=== PATIENT | male | born 1960 | race Caucasian/White ===

== ENCOUNTER 2020-09-03 12:07 | Outpatient (REF) | payer OTHER, SELFPAY | END 2020-09-03 12:08 | disposition home or self-care (01) | LOC: HO.LAB 12:07 | PROVIDERS: PCP Internal Medicine; Visit Provider Internal Medicine | DX: Z20.828 Contact with and (suspected) exposure to other viral communicable diseases (principal) | CPT/HCPCS: U0003 ==

== ENCOUNTER → 2020-09-29 08:25 | Outpatient (BNVA) | payer OTHER, SELFPAY | PROVIDERS: PCP Internal Medicine; Referring Provider Internal Medicine; Visit Provider Internal Medicine | DX: I10 Essential (primary) hypertension (principal); Q21.0 Ventricular septal defect | CPT/HCPCS: 93005 ==

== ENCOUNTER 2020-10-05 07:21 | Outpatient (REF) | payer OTHER, SELFPAY ==
[2020-10-05 07:57] LABS: MANUAL DIFF FLAG NO
[2020-10-05 08:06] LABS: Basophils Absolute Auto 0.1 X10*3/uL (0.0-0.2); Basophils Percent Auto 0.9 % (0-2); Eosinophils Absolute Auto 0.2 X10*3/uL (0.0-0.4); Hematocrit 43.7 % (42-52); Hemoglobin 15.2 g/dl (14.0-18.0); Imm Gran Abs Auto 0.05 X10*3/uL (0.00-0.03); Imm Gran Pct Auto 0.5 % (0.0-0.4); Lymphocytes Absolute Auto 2.1 X10*3/uL (1.2-4.9); Lymphocytes Percent Auto 20.7 % (20-40); Mean Corpuscular HGB Conc 34.8 g/dl (31.0-36.0); Mean Corpuscular Hemoglobin 34.7 pg (27.0-33.0); Mean Corpuscular Volume 99.8 fL (80-98); Monocytes Absolute Auto 0.9 X10*3/uL (0.1-1.2); Monocytes Percent Auto 8.9 % (2-11); Neutrophils Absolute Auto 6.8 X10*3/uL (2.0-8.3); Platelet Count 228 X10*3/uL (160-400); Red Blood Count 4.38 X10*6/uL (4.60-5.80); Red Cell Distribution Width 11.9 % (11.0-16.0); White Blood Count 10.2 X10*3/uL (4.8-10.8)
[2020-10-05 08:19] LABS: Alanine Aminotransferase 62 U/L (0-40); Albumin Level 4.2 g/dL (3.5-5.0); Alkaline Phosphatase 50 U/L (39-117); Anion Gap 13 (12-20); Aspartate Amino Transferase 51 U/L (5-37); Bilirubin Total 1.1 mg/dL (0.0-1.0); Blood Urea Nitrogen 12 mg/dL (9-16); Calcium 8.7 mg/dL (8.4-10.2); Carbon Dioxide 25 mmol/L (22-29); Chloride 102 mmol/L (96-108); Cholesterol 160 mg/dL; Estimated Glomerular Filt Rate > 60; Glucose Fasting 112 mg/dL (60-99); HDL Cholesterol 62 mg/dL; LDL Cholesterol Calculated 57 mg/dl; Potassium 3.9 mmol/l (3.3-5.1); Sodium 136 mmol/L (135-145); Total Protein 6.6 g/dL (6.5-8.0); Triglycerides 208 mg/dL
[2020-10-05 08:42] LABS: Prostate Specific Antigen Scr 0.14 ng/mL (<0.05-4.0)
== END 2020-10-05 07:22 | disposition home or self-care (01) ==
LOC: HO.LAB 07:21
PROVIDERS: Visit Provider Internal Medicine
DX: E11.9 Type 2 diabetes mellitus without complications (principal); I10 Essential (primary) hypertension
CPT/HCPCS: 36415; 80053; 80061; 84153; 85025

== ENCOUNTER 2021-10-07 09:02 | Outpatient (REF) | payer OTHER, SELFPAY ==
[2021-10-07 10:01] LABS: Basophils Absolute Auto 0.1 X10*3/uL (0.0-0.2); Basophils Percent Auto 0.6 % (0-2); Eosinophils Absolute Auto 0.1 X10*3/uL (0.0-0.4); Eosinophils Percent Auto 0.8 % (0-4); Hematocrit 43.6 % (42.0-52.0); Hemoglobin 14.8 g/dl (14.0-18.0); Imm Gran Abs Auto 0.07 X10*3/uL (0.00-0.03); Imm Gran Pct Auto 0.6 % (0.0-0.4); Lymphocytes Absolute Auto 1.9 X10*3/uL (1.2-4.9); Lymphocytes Percent Auto 15.4 % (20-40); MANUAL DIFF FLAG NO; Mean Corpuscular HGB Conc 33.9 g/dl (31.0-36.0); Mean Corpuscular Hemoglobin 34.6 pg (27.0-33.0); Mean Corpuscular Volume 101.9 fL (80.0-98.0); Mean Platelet Volume 11.8 fL (9.4-12.4); Monocytes Absolute Auto 1.2 X10*3/uL (0.1-1.2); Monocytes Percent Auto 9.7 % (2-11); Neutrophils Percent Auto 72.9 % (45-73); Platelet Count 199 X10*3/uL (160-400); Red Blood Count 4.28 X10*6/uL (4.60-5.80); Red Cell Distribution Width 12.6 % (11.0-16.0); White Blood Count 12.3 X10*3/uL (4.8-10.8)
[2021-10-07 11:14] LABS: Alanine Aminotransferase 48 U/L (0-40); Albumin Level 4.3 g/dL (3.5-5.0); Alkaline Phosphatase 69 U/L (39-117); Anion Gap 16 (12-20); Aspartate Amino Transferase 40 U/L (5-37); Bilirubin Total 1.3 mg/dL (0.0-1.0); Blood Urea Nitrogen 9 mg/dL (9-16); Calcium 9.3 mg/dL (8.4-10.2); Carbon Dioxide 23 mmol/L (22-29); Chloride 102 mmol/L (96-108); Cholesterol 128 mg/dL; Estimated Glomerular Filt Rate > 60; Glucose Fasting 119 mg/dL (60-99); HDL Cholesterol 38 mg/dL; LDL Cholesterol Calculated 67 mg/dl; Potassium 4.4 mmol/L (3.3-5.1); Sodium 137 mmol/L (135-145); Total Protein 6.9 g/dL (6.5-8.0); Triglycerides 115 mg/dL
[2021-10-07 11:35] LABS: Prostate Specific Antigen Scr 0.19 ng/mL (<0.05-4.0); Thyroid Stimulating Hormone 1.68 uIU/mL (0.32-4.0)
== END 2021-10-07 09:03 | disposition home or self-care (01) ==
LOC: HO.LAB 09:02
PROVIDERS: PCP Internal Medicine; Visit Provider Internal Medicine
DX: Z00.00 Encounter for general adult medical examination without abnormal findings (principal); Z12.5 Encounter for screening for malignant neoplasm of prostate
CPT/HCPCS: 36415; 80053; 80061; 84153; 84443; 85025

== ENCOUNTER 2021-10-11 10:54 | Inpatient (IN) | payer OTHER, SELFPAY ==
[2021-10-11] VITALS (15 sets, daily range): BP systolic 124–188; BP diastolic 79–131; PULSE 58–170; RESP 18–22; TEMP 36.4; O2SAT 95–98; BMI 35.6
--- NOTE | 2021-10-11 | ECG_ITS ---
Test Reason : CP Blood Pressure : / mmHG Vent. Rate : 166 BPM Atrial Rate : 000 BPM P-R Int : 000 ms QRS Dur : 076 ms QT Int : 304 ms P-R-T Axes : 000 104 066 degrees QTc Int : 505 ms Supraventricular tachycardia vs atrial flutter Rightward axis Anteroseptal infarct (cited on or before 22-NOV-2017) Abnormal ECG When compared with ECG of 22-NOV-2017 13:41, Significant changes have occurred Referred By: Generic ED Physician Electronically Signed By:Jose R Kelley
--- NOTE | ~2021-10-11 | CT_ITS ---
EXAMINATION: CT ABDOMEN AND PELVIS WITH CONTRAST CLINICAL INFORMATION: Abdominal pain. Distention. New onset atrial fibrillation. Rule out bowel ischemia. COMPARISON: None TECHNIQUE: Multidetector volumetric images were obtained from the superior aspect of the liver through the pubic symphysis following administration 85 mL of Omnipaque 350 intravenous contrast. Sagittal reformatted images were obtained on the technologist's workstation. Oral contrast: Yes This CT examination was performed using dose optimization techniques as appropriate, variously including the following: *Automated exposure control *Adjustment of mA and/or kV according to patient size (this includes techniques or standardized protocols for targeted exams where dose is matched to indication/reason for exam; i.e. extremities or head) *Use of iterative reconstruction technique DLP: 779 mGy-cm FINDINGS: LIVER, GALLBLADDER, AND BILIARY TREE: The liver is normal in size, shape, and attenuation. No focal hepatic lesion or biliary ductal dilatation is present. The gallbladder is normal in size. There is question of mild gallbladder wall thickening or pericholecystic fluid. No gallstones are seen. There is a small amount of fluid seen surrounding the liver and in the periportal region. PANCREAS: There may be be pancreas divisum. The pancreas is normal in size. The pancreas enhances normally. There is mild stranding of the fat surrounding the pancreas. SPLEEN: Unremarkable. ADRENAL GLANDS: Unremarkable. KIDNEYS AND URETERS: The kidneys are normal in size, shape, and attenuation. No hydronephrosis, hydroureter, or calculi seen. No perinephric stranding. BLADDER: Unremarkable. GASTROINTESTINAL TRACT: There is mild diverticulosis of the colon. No evidence of diverticulitis is seen. The small and large bowel are unremarkable. The appendix is not seen. No bowel wall thickening, thickening, pneumatosis or mesenteric or portal vein air is seen to suggest ischemia. There is trace fluid seen in both lower quadrants. ABDOMINAL WALL: No significant hernia is appreciated. LYMPH NODES: There are periportal, peripancreatic and retroperitoneal small lymph nodes. Largest periportal and pancreatic head region measuring 1.2 cm. VASCULAR: Unremarkable. No aneurysm or thrombus is seen. PELVIC VISCERA: Unremarkable OSSEOUS STRUCTURES: There are degenerative changes of the spine. CT/CT abdomen pelvis w con IMPRESSION: Mild diverticulosis of the colon. No evidence of diverticulitis or bowel ischemia seen. Normal-appearing mesenteric vasculature. Small amount of ascites around the liver, periportal region, pancreas and in the bilateral lower quadrants. Normal-size gallbladder. Question mild gallbladder wall thickening versus of pericholecystic fluid. Small periportal and peripancreatic lymph nodes. Fleischner guidelines were followed.
--- NOTE | ~2021-10-11 | XR_ITS ---
EXAMINATION: XR CHEST CLINICAL INFORMATION: Shortness of breath, tachycardia, rule out pulmonary edema COMPARISON: None TECHNIQUE: Portable upright AP view of the chest was obtained. FINDINGS: The cardiopericardial silhouette is within limits of normal size. The vascularity is normal. There is no vascular congestion or airspace consolidation or groundglass opacity. No effusion. No pneumothorax or pleural reaction. The visualized hilar and mediastinal contours are unremarkable. No visible acute bony abnormality. XR/XR chest 1V IMPRESSION: Unremarkable examination.
--- NOTE | ~2021-10-11 | CT_ITS ---
EXAMINATION: CT ANGIOGRAM OF THE CHEST WITH AND WITHOUT CONTRAST (CT PULMONARY ANGIOGRAM FOR PE) CLINICAL INFORMATION: Reason for Exam Chest pain, shortness of breath, new onset AFib, high D-dime COMPARISON: Previous chest x-ray from earlier the same day TECHNIQUE: Prior to contrast administration, noncontrast localization images were obtained. Subsequently, multidetector volumetric imaging was performed from the thoracic inlet to below the diaphragms following the administration of 85 mL Omnipaque 350 intravenous contrast. No contrast reaction reported Sagittal, coronal, and MIP oblique sagittal reformatted images were obtained on the CT workstation, uploaded to PACS, and reviewed. This CT examination was performed using dose optimization techniques as appropriate, variously including the following: *Automated exposure control *Adjustment of mA and/or kV according to patient size (this includes techniques or standardized protocols for targeted exams where dose is matched to indication/reason for exam; i.e. extremities or head) *Use of iterative reconstruction technique Total exam dose-length product 544 mGy-cm FINDINGS: QUALITY OF STUDY/CONTRAST BOLUS: Satisfactory. PULMONARY ARTERIES: No central or segmental pulmonary emboli. THORACIC AORTA: No aneurysm or dissection. There is mild narrowing of the proximal descending thoracic aorta just beyond the origin of the left subclavian artery questionable for mild coarct. LUNG: There are increased interstitial markings with interlobular septal thickening. There are scattered areas of increased groundglass attenuation in the upper lobes. PLEURA: There are small bilateral pleural effusions, right greater than left. MEDIASTINUM: The heart is enlarged. There is a small pericardial effusion. There is no evidence of right heart strain. There are small mediastinal and bilateral hilar lymph nodes. There is aberrant course of the left innominate vein posterior or deep to the aortic arch. CHEST WALL/AXILLA: There are bilateral axillary lymph nodes, left greater than right. Largest left axillary lymph node measures 1.2 cm. OSSEOUS STRUCTURES: No acute or suspicious osseous abnormality. There are degenerative changes of the spine. UPPER ABDOMEN: Unremarkable. No reflux of contrast into the hepatic veins to suggest elevated right heart pressures. CT/CT angio chest PE protocol IMPRESSION: No evidence of pulmonary embolism. Enlarged heart, mixed interstitial and groundglass attenuation lung disease and small bilateral pleural effusions. Findings are suggestive of mild CHF. Mild narrowing of the proximal descending thoracic aorta just distal to the origin of the left subclavian artery questionable for mild coarctation. Very small pericardial effusion. Left axillary lymphadenopathy. VTE: negative
[2021-10-11 11:29] LABS: MANUAL DIFF FLAG NO
[2021-10-11 11:33] LABS: Basophils Absolute Auto 0.1 X10*3/uL (0.0-0.2); Basophils Percent Auto 0.9 % (0-2); Eosinophils Absolute Auto 0.1 X10*3/uL (0.0-0.4); Eosinophils Percent Auto 1.2 % (0-4); Hematocrit 44.7 % (42.0-52.0); Hemoglobin 15.3 g/dl (14.0-18.0); Imm Gran Abs Auto 0.03 X10*3/uL (0.00-0.03); Imm Gran Pct Auto 0.2 % (0.0-0.4); Lymphocytes Absolute Auto 2.3 X10*3/uL (1.2-4.9); Lymphocytes Percent Auto 18.7 % (20-40); Mean Corpuscular HGB Conc 34.2 g/dl (31.0-36.0); Mean Corpuscular Hemoglobin 34.9 pg (27.0-33.0); Mean Corpuscular Volume 102.1 fL (80.0-98.0); Mean Platelet Volume 11.6 fL (9.4-12.4); Monocytes Absolute Auto 1.2 X10*3/uL (0.1-1.2); Monocytes Percent Auto 10.2 % (2-11); Neutrophils Absolute Auto 8.3 x10*3/uL (2.0-8.3); Neutrophils Percent Auto 68.8 % (45-73); Platelet Count 225 X10*3/uL (160-400); Red Blood Count 4.38 X10*6/uL (4.60-5.80); Red Cell Distribution Width 12.5 % (11.0-16.0); White Blood Count 12.1 X10*3/uL (4.8-10.8)
[2021-10-11] MEDS: 0.9 % Sodium Chloride 1,000 ML 999 ML IV (11:33)
--- NOTE | 2021-10-11 11:37 | ED.SOB ---
HPI - SOB/Dyspnea General Chief Complaint: Dyspnea Stated Complaint: Chest pain/sob Time Seen by Provider: 10/11/21 11:06 Source: patient Mode of arrival: ambulatory Limitations: no limitations History of Present Illness HPI Narrative: 60-year-old male who presents emergency department for evaluation of shortness of breath x1 week. Patient states that he has had shortness of breath at rest and dyspnea on exertion x1 week. States that is gotten worse over the past 4 days. He states that can walk about 20 ft in in the gets winded. He states that over the past 2 days he has had intermittent chest tightness. He points to his left breast when asked to localize the pain. The pain lasts seconds to minutes the has approximately 2 episodes per day. The episodes come on with exertion. The pain does not radiate to his neck, jaw, back, extremities patient also states that his abdomen feels bloated and he has a decreased appetite and he states that he was not able to eat today secondary to his abdominal distension. He has not noticed any pain or swelling in his extremities. He denied fever, chills, cough . He states he did have a bloody nose 1 week prior but has not had any other bleeding from his gums or other unusual bleeding. The patient received the [employer] COVID 19 vaccination x2 and received a booster shot of the Pfizer COVID 19 vaccination approximately 6 days prior. Related Data Home Medications Medication Instructions Recorded Confirmed loperamide 2 mg tablet 2 mg PO Q4H PRN 10/11/21 10/11/21 Previous Rx's Medication Instructions Recorded lansoprazole 15 mg capsule,delayed 15 mg PO DAILY #90 cap 09/10/20 release carvedilol 3.125 mg tablet 3.125 mg PO BID #180 tab 05/24/21 irbesartan 300 1 tab PO DAILY #30 tab 08/19/21 mg-hydrochlorothiazide 12.5 mg tablet zolpidem 10 mg tablet 10 mg PO BEDTIME PRN #90 tab 10/10/21 Allergies Allergy/AdvReac Type Severity Reaction Status Date / Time amlodipine AdvReac Unknown Leg Verified 10/11/21 10:33 swelling Review of Systems Review of Systems: Yes all other systems are reviewed and are negative PMFSH Past Medical History PMFSH Narrative: Social history: The patient smokes 1 cigar per day. He drinks 4 alcoholic beverages per day. He denies drug use. Medical History Chronic GERD Essential hypertension Obesity VSD (ventricular septal defect) Surgical History History of appendectomy History of rectal polypectomy History of surgery on extremity Family History Family History Father No problems noted. Mother No problems noted. Brother Heart attack Family/Other Vascular disease Social History Social History Housing: House Alcohol intake: current Alcohol intake frequency: 3 or more drinks per day Alcohol type: beer and wine Patient Tobacco Use Status: Current someday Tobacco user Tobacco use type: Cigar e-Cigarette/Vaping Use: Never Used Second Hand Smoke Exposure: No Use of substances other than those prescribed or required for medical reasons: No Advance Directives: No Advance Directives Information Provided: No Current occupational status: employed Cognitive needs: No Hearing needs: No Vision needs: No Physical Exam Vital Signs: Vital Signs: Last Vital Signs Temp 97.5 F 10/11/21 11:04 Pulse 60 10/11/21 16:14 Resp 22 H 10/11/21 16:14 BP 138/79 10/11/21 16:14 Pulse Ox 97 10/11/21 16:14 BMI result Body Mass Index 35.6 Const: General: cooperative and no acute distress Orientation/consciousness: oriented to person and oriented to place Limitations: no limitations HENMT: Head: Yes normal to inspection, Yes normocephalic and Yes atraumatic Ears: external ears normal General nose exam: Normal external nose present Face and sinus: Yes normal facial exam Mouth: Normal oral and palatal mucosa present Throat: Yes posterior oropharynx normal Eyes: General: appearance normal, both eyes and all related structures Pupils: Equal, round and reactive pupils present Neck: Neck: Yes normal visual inspection, Yes no lymphadenopathy, Yes trachea midline and Yes supple Chest: Chest palpation & inspection: normal inspection of the chest and normal palpation of entire chest wall Resp: Effort & Inspection: normal respiratory effort and able to speak in complete sentences Auscultation: clear to auscultation bilaterally Cardio: Rate: tachycardic Rhythm: regular rhythm Heart sounds: S1 normal heart sound present, S2 normal heart sound present and no murmurs GI: Inspection: Yes normal to inspection Palpation (GI): Soft to palpation, nontender and no guarding Auscultation: normal bowel sounds : General: Yes no CVA tenderness Back/Spine/Pelvis: Back: no CVA tenderness Skin: General skin exam: no rashes or lesions noted Neuro: General: oriented to person and oriented to place Cranial nerves: Yes CN's II-XII intact bilaterally and Yes Equal, round and reactive pupils present Cognition (Neuro): normal cognition Motor exam (neuro): 5/5 motor strength present throughout Extrem: General: Yes normal to inspection Psych: Appearance: grossly normal Speech and movement: Normal speech and movement present Affect: normal affect Attitude: cooperative Thought process: Normal thought process present Thought content: Normal thought content present Course Course Course Narrative: 60-year-old male who presents emergency department for evaluation of shortness of breath x1 week, worse x4 days, intermittent chest tightness x2 days, 1-2 episodes per day lasting seconds to minutes, and a bloated sensation in his abdomen. On presentation to triage, the patient was found to have a tachycardia with a pulse of 165, 12 EKG revealed SVT at 165 which appear to be regular. Patient was brought back to the emergency department and placed on a sanitary landfill operator, defibrillation pads were also placed on the patient's chest and he was hooked up to the defibrillator. Patient was initially given adenosine 6 mg IV with no effect. He was then given adenosine 12 mg IV in the patient then developed flutter waves but continued with an SVT of 165 beats per minute patient's presentation is consistent with atrial flutter/atrial fibrillation. He was ordered to get diltiazem 20 mg IV and Lovenox 100 mg (1 milligram/kilogram) subcutaneously. I did order laboratory evaluation includes CBC, CMP, high sensitivity troponin I, D-dimer, PT/INR, PTT, COVID-19 test. Chest x-ray will be obtained as well. Patient was given normal saline IV x1 L. 1310: Laboratory evaluation: WBC was elevated 12,100, INR was elevated 1.2. BNP is elevated 353. D-dimer was elevated 254. AST and ALT are elevated 4860. Bilirubin is elevated 1.2. High sensitivity troponin I was below detectable limits. Chest x-ray one view was unremarkable. The patient initially had good response with the IV diltiazem but his rate is now at 165 again. Patient was ordered to get diltiazem 25 mg IV and will be started on diltiazem drip. Given his elevated D-dimer I will get a CT pulmonary angiogram with pulmonary embolism protocol to rule out PE. I will also scan the patient's abdomen pelvis evaluate his abdominal pain distension to rule out possible ischemia from atrial flutter. At will discuss the patient's presentation with the covering porcelain enamel sprayer and hospitalist. 1437: Patient was seen by our porcelain enamel sprayer, Dr. Kelley who will consider loading the patient with digoxin if his rate does not improve on diltiazem. I did discuss the patient's presentation with the covering hospitalist, Dr. Hopkins. 1658: CT pulmonary angiogram PE protocol revealed no PE. Radiologist findings are consistent with mild CHF with small bilateral pleural effusions and very small pericardial effusion. Radiologist was questioning mild narrowing of the proximal descending thoracic aorta just distal to the origin of the left subclavian question for mild coarctation of the aorta. CT scan of the abdomen pelvis did not reveal a clear etiology for the patient's abdominal distension. There is a small amount of ascites around the patient's liver, periportal region pancreas and bilateral lower quadrants. There is some mild gallbladder thickening versus pericholecystic fluid and some small rbian portal peripancreatic lymph nodes. I will discuss these findings with the covering hospitalist. MDM - SOB/Dyspnea Lab Data Result diagrams: 10/11/21 11:23 10/11/21 11:23 Labs: Lab Results 10/11/21 10/11/21 10/11/21 Range/Units 11:22 11:22 11:22 WBC (4.8-10.8) X10*3/uL RBC (4.60-5.80) X10*6/uL Hgb (14.0-18.0) g/dl Hct (42.0-52.0) % MCV (80.0-98.0) fL MCH (27.0-33.0) pg MCHC (31.0-36.0) g/dl RDW (11.0-16.0) % Plt Count (160-400) X10*3/uL MPV (9.4-12.4) fL Immature Gran % (Auto) (0.0-0.4) % Neut % (Auto) (45-73) % Lymph % (Auto) (20-40) % [place] % (Auto) (2-11) % Eos % (Auto) (0-4) % Baso % (Auto) (0-2) % Lymph # (Auto) (1.2-4.9) X10*3/uL [place] # (Auto) (0.1-1.2) X10*3/uL Eos # (Auto) (0.0-0.4) X10*3/uL Baso # (Auto) (0.0-0.2) X10*3/uL Abs Immat Gran (auto) (0.00-0.03) X10*3/uL Absolute Neuts (auto) (2.0-8.3) x10*3/uL Absolute Nucleated RBC (0.0-0.012) X10*3/uL Nucleated RBC % (auto) (0.0-0.2) /100WBC PT Cancelled INR Cancelled APTT Cancelled D-Dimer High Sensitivty NG/ML Sodium (135-145) mmol/L Potassium (3.3-5.1) mmol/L Chloride (96-108) mmol/L Carbon Dioxide (22-29) mmol/L Anion Gap (12-20) BUN (9-16) mg/dL Creatinine (0.5-1.4) mg/dL Estim Creat Clear Calc Estimated GFR Random Glucose (60-115) mg/dL Calcium (8.4-10.2) mg/dL Total Bilirubin (0.0-1.0) mg/dL AST (5-37) U/L ALT (0-40) U/L Alkaline Phosphatase (39-117) U/L Troponin I High Sens < 3.5 (<3.5-35.0) ng/L B-Natriuretic Peptide 353 H (<100) pg/mL Total Protein (6.5-8.0) g/dL Albumin (3.5-5.0) g/dL Lipase (8-78) U/L COVID-19 (FELISHA) Negative (Negative) COVID-19 Clin Com See Note 10/11/21 10/11/21 10/11/21 Range/Units 11:23 11:23 11:23 WBC 12.1 H (4.8-10.8) X10*3/uL RBC 4.38 L (4.60-5.80) X10*6/uL Hgb 15.3 (14.0-18.0) g/dl Hct 44.7 (42.0-52.0) % MCV 102.1 H (80.0-98.0) fL MCH 34.9 H (27.0-33.0) pg MCHC 34.2 (31.0-36.0) g/dl RDW 12.5 (11.0-16.0) % Plt Count 225 (160-400) X10*3/uL MPV 11.6 (9.4-12.4) fL Immature Gran % (Auto) 0.2 (0.0-0.4) % Neut % (Auto) 68.8 (45-73) % Lymph % (Auto) 18.7 L (20-40) % [place] % (Auto) 10.2 (2-11) % Eos % (Auto) 1.2 (0-4) % Baso % (Auto) 0.9 (0-2) % Lymph # (Auto) 2.3 (1.2-4.9) X10*3/uL [place] # (Auto) 1.2 (0.1-1.2) X10*3/uL Eos # (Auto) 0.1 (0.0-0.4) X10*3/uL Baso # (Auto) 0.1 (0.0-0.2) X10*3/uL Abs Immat Gran (auto) 0.03 (0.00-0.03) X10*3/uL Absolute Neuts (auto) 8.3 (2.0-8.3) x10*3/uL Absolute Nucleated RBC 0.000 (0.0-0.012) X10*3/uL Nucleated RBC % (auto) 0.0 (0.0-0.2) /100WBC PT 14.0 H INR 1.2 H APTT 36.1 D-Dimer High Sensitivty 254 NG/ML Sodium 138 (135-145) mmol/L Potassium 4.2 (3.3-5.1) mmol/L Chloride 105 (96-108) mmol/L Carbon Dioxide 23 (22-29) mmol/L Anion Gap 14 (12-20) BUN 13 (9-16) mg/dL Creatinine 1.06 (0.5-1.4) mg/dL Estim Creat Clear Calc 84.9 Estimated GFR > 60 Random Glucose 116 H (60-115) mg/dL Calcium 9.8 (8.4-10.2) mg/dL Total Bilirubin 1.2 H (0.0-1.0) mg/dL AST 48 H (5-37) U/L ALT 60 H (0-40) U/L Alkaline Phosphatase 72 (39-117) U/L Troponin I High Sens (<3.5-35.0) ng/L B-Natriuretic Peptide (<100) pg/mL Total Protein 7.2 (6.5-8.0) g/dL Albumin 4.5 (3.5-5.0) g/dL Lipase 21 (8-78) U/L COVID-19 (FELISHA) (Negative) COVID-19 Clin Com Critical Care Time Critical Care Time Critical Care Time: Yes Total Critical Care Time: 35 Attestation: Critical Care: The patient was critically ill with a high probability of imminent or life threatening deterioration. I spent greater than 30 minutes of discontinuous time evaluating the patient,delivering critical care at the bedside, discussing and evaluating pertinent data with consultants. Critical care time does not include time spent performing separately billable procedures or teaching. Total time spent performing critical care was 35 minutes. Discharge Plan Discharge Clinical Impression: New onset atrial flutter Abdominal pain Qualifiers: Abdominal location: generalized Qualified Code(s): R10.84 - Generalized abdominal pain Patient Disposition: Admitted As Inpatient
[2021-10-11] MEDS: Enoxaparin Sodium 100 MG/ML SYRINGE SUBCUT ×2 (11:43→20:35)
[2021-10-11] MEDS: dilTIAZem HCL 50 MG/10 ML VIAL 20 MG IVPUSH (11:43)
[2021-10-11 11:44] LABS: D Dimer High Sensitivity 254 NG/ML
[2021-10-11 11:52] LABS: Alanine Aminotransferase 60 U/L (0-40); Albumin Level 4.5 g/dL (3.5-5.0); Alkaline Phosphatase 72 U/L (39-117); Anion Gap 14 (12-20); Aspartate Amino Transferase 48 U/L (5-37); Bilirubin Total 1.2 mg/dL (0.0-1.0); Blood Urea Nitrogen 13 mg/dL (9-16); Calcium 9.8 mg/dL (8.4-10.2); Carbon Dioxide 23 mmol/L (22-29); Chloride 105 mmol/L (96-108); Creatinine Clr Calc Pharmacy 84.9; Estimated Glomerular Filt Rate > 60; Glucose Random 116 mg/dL (60-115); Lipase 21 U/L (8-78); Potassium 4.2 mmol/L (3.3-5.1); Sodium 138 mmol/L (135-145); Total Protein 7.2 g/dL (6.5-8.0)
--- NOTE | 2021-10-11 11:54 | ECG_ITS ---
Test Reason : REPEAT Blood Pressure : / mmHG Vent. Rate : 112 BPM Atrial Rate : 300 BPM P-R Int : 000 ms QRS Dur : 080 ms QT Int : 296 ms P-R-T Axes : 062 092 082 degrees QTc Int : 404 ms Atrial flutter with variable A-V block Rightward axis Septal infarct (cited on or before 22-NOV-2017) Abnormal ECG When compared with ECG of 11-OCT-2021 10:56, No significant changes seen Referred By: Juan Hopkins Electronically Signed By:Jose R Kelley
[2021-10-11 11:57] LABS: B Type Natriuretic Peptide 353 pg/mL (<100); Troponin-I High Sensitivity < 3.5 ng/L (<3.5-35.0)
--- NOTE | 2021-10-11 11:58 | PC.NURSE ---
after 20mg diltiazem pt is feeling better . Rhythm on monitor is a fib/flutter in 130's but Radial pulse is strong, irregular in low 60's. Skin pwd. unlabored resp.
[2021-10-11 12:01] LABS: COVID-19 Test Negative (Negative); IDNOW Serial# 08D9AD1C
[2021-10-11 12:02] LABS: INTERNATIONAL NORM RATIO 1.2 (0.9-1.1)
[2021-10-11 12:05] LABS: Partial Thromboplastin Time 36.1 SEC (24.1-38.0)
--- NOTE | 2021-10-11 12:45 | PC.NURSE ---
reports feeling well . skin pwd. a fib/flutter continues. denies dizziness. skin pwd.
[2021-10-11] MEDS: dilTIAZem HCL 50 MG/10 ML VIAL 25 MG IVPUSH (13:28)
[2021-10-11] MEDS: dilTIAZem HCL 125 MG in 0.9 % Sodium Chloride 100 ML IVCONT (13:29)
--- NOTE | 2021-10-11 14:34 | PC.NURSE ---
VASCULAR AT BEDSIDE. PT HAS NO COMPLAINTS AT THIS TIME . REMAINS IN A FIB/FLUTTER
--- NOTE | 2021-10-11 14:41 | P.CONCA_ITS ---
History of Present Illness History of Present Illness Date of Service: 10/11/21 Requesting physician: Celso Batista Chief complaint: Chest pain/sob Narrative: 60-year-old gentleman with background history of ventricular septal defect, hypertension and alcohol use who is presenting with shortness of breath and was found to be in atrial flutter. Was initially thought to have supraventricular tachycardia and was given adenosine which led to diagnosis of atrial flutter. He was given Cardizem bolus and started on Cardizem drip. His heart rates improved to low 100s with Cardizem drip. He is saying he is feeling much better since he started getting Cardizem and his heart rate was slowed down. He has been feeling bloated for the last week and is complaining of some abdominal discomfort also. He is due to get CT chest and abdomen. D-dimer was mildly elevated. He was given Lovenox and Cardizem drip in the ER. Echocardiogram July 2019 showing small membranous ventricular septal defect, mild aortic valve regurgitation, mild mitral regurgitation and mild tricuspid valve regurgitation. Normal left ventricular size and function with ejection fraction of 65-70%. E to E prime ratio was increased consistent with elevated filling pressures. [facility] Past Medical History Medical History Chronic GERD Essential hypertension Obesity VSD (ventricular septal defect) Family History Family History Father No problems noted. Mother No problems noted. Brother Heart attack Family/Other Vascular disease Surgical History Surgical History History of appendectomy History of rectal polypectomy History of surgery on extremity Social History Social History Housing: House Alcohol intake: current Alcohol intake frequency: 3 or more drinks per day Alcohol type: beer and wine Patient Tobacco Use Status: Current someday Tobacco user Tobacco use type: Cigar e-Cigarette/Vaping Use: Never Used Second Hand Smoke Exposure: No Current occupational status: employed Cognitive needs: No Hearing needs: No Vision needs: No Meds Allergies Allergy/AdvReac Type Severity Reaction Status Date / Time amlodipine AdvReac Unknown Leg Verified 10/11/21 10:33 swelling Active Medications: Current Medications Diltiazem HCl 125 mg/ Sodium (Chloride) 125 mls @ 0 mls/hr IVCONT .Q0M [facility]; Protocol Last Titration: 10/11/21 14:33 Dose: 10 mg/hr, 10 mls/hr Documented by: Physical Exam Vital Signs: Vital Signs: Last Vital Signs Temp 97.5 F 10/11/21 11:04 Pulse 109 H 10/11/21 14:33 Resp 18 10/11/21 14:33 BP 136/85 10/11/21 14:33 Pulse Ox 96 10/11/21 14:33 BMI result Body Mass Index 35.6 GENERAL APPEARANCE: in no acute distress, pleasant. NECK: no carotid bruit, no jugular venous distention. SKIN: no suspicious lesions, warm and dry. HEART: no murmurs, regular tachycardia. LUNGS: clear to auscultation bilaterally. ABDOMEN: Mildly distended, nontender. EXTREMITIES: no edema. PERIPHERAL PULSES: equal. NEUROLOGIC: No gross deficits, AAO X 3 Objective Labs and Meds Result diagrams: 10/11/21 11:23 10/11/21 11:23 Lab results: Laboratory Results - last 24 hr 10/11/21 10/11/21 10/11/21 11:22 11:22 11:22 WBC RBC Hgb Hct MCV MCH MCHC RDW Plt Count MPV Immature Gran % (Auto) Neut % (Auto) Lymph % (Auto) [place] % (Auto) Eos % (Auto) Baso % (Auto) Lymph # (Auto) [place] # (Auto) Eos # (Auto) Baso # (Auto) Abs Immat Gran (auto) Absolute Neuts (auto) Absolute Nucleated RBC Nucleated RBC % (auto) PT Cancelled INR Cancelled APTT Cancelled D-Dimer High Sensitivty Sodium Potassium Chloride Carbon Dioxide Anion Gap BUN Creatinine Estim Creat Clear Calc Estimated GFR Random Glucose Calcium Total Bilirubin AST ALT Alkaline Phosphatase Troponin I High Sens < 3.5 B-Natriuretic Peptide 353 H Total Protein Albumin Lipase COVID-19 (FELISHA) Negative COVID-19 Clin Com See Note 10/11/21 10/11/21 10/11/21 11:23 11:23 11:23 WBC 12.1 H RBC 4.38 L Hgb 15.3 Hct 44.7 MCV 102.1 H MCH 34.9 H MCHC 34.2 RDW 12.5 Plt Count 225 MPV 11.6 Immature Gran % (Auto) 0.2 Neut % (Auto) 68.8 Lymph % (Auto) 18.7 L [place] % (Auto) 10.2 Eos % (Auto) 1.2 Baso % (Auto) 0.9 Lymph # (Auto) 2.3 [place] # (Auto) 1.2 Eos # (Auto) 0.1 Baso # (Auto) 0.1 Abs Immat Gran (auto) 0.03 Absolute Neuts (auto) 8.3 Absolute Nucleated RBC 0.000 Nucleated RBC % (auto) 0.0 PT 14.0 H INR 1.2 H APTT 36.1 D-Dimer High Sensitivty 254 Sodium 138 Potassium 4.2 Chloride 105 Carbon Dioxide 23 Anion Gap 14 BUN 13 Creatinine 1.06 Estim Creat Clear Calc 84.9 Estimated GFR > 60 Random Glucose 116 H Calcium 9.8 Total Bilirubin 1.2 H AST 48 H ALT 60 H Alkaline Phosphatase 72 Troponin I High Sens B-Natriuretic Peptide Total Protein 7.2 Albumin 4.5 Lipase 21 COVID-19 (FELISHA) COVID-19 Clin Com Imaging Radiologist's impression: Impressions Chest X-Ray 10/11/21 11:40 IMPRESSION: Unremarkable examination. Assessment and Plan (1) New onset atrial flutter: Status: Acute (2) Dyspnea: Status: Acute (3) VSD (ventricular septal defect): Status: Acute (4) Essential hypertension: Status: Acute Pleasant 60-year-old gentleman with known history of membranous ventricular septal defect who is presenting for shortness of breath and noticed to be in atrial flutter. He has been started on Cardizem drip with heart rates improving. Continue Cardizem drip. Continue Lovenox for now. Please watch for alcohol withdrawal because he drinks daily. If heart rate is difficult to control then I will add digoxin. He may need FILIPE cardioversion but he was try medications 1st. His chads Vasc score right now is 1. I will check echocardiogram to assess LV for any structural issues in particular if he has cardiomyopathy then his risk for thromboembolism is rela tively high and I would consider anticoagulation in that scenario. Thank you for allowing me to participate in the care of your patient. Please feel free to contact me if you have any questions. Procedures Date of Service Date of Service: 10/11/21
[2021-10-11] MEDS: iohexoL 350 MG/ML 100 ML INFUS..BTL IV (16:07)
--- NOTE | 2021-10-11 16:24 | P.HPHOSP_ITS ---
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 Tellez presented to [facility] due to intermittent episodes of shortness of breath worse with exertion x1 week now for last couple days noticed to have mild chest tightness along with shortness of breath without associated diaphoresis, cough, no fevers, no chills, no radiation to neck, jaw or extremities, patient denies prior history of angina coronary artery disease, patient also complains of decreased appetite, and noted abdominal distension for last 2-3 weeks, he has chronic issues with diarrhea therefore takes as needed Imodium he gets colonoscopies every 5 years due to history of colon polyps, he has gained 6 lb weight in last 1 month, he denies family history of colon cancer, in the emergency room patient noted to be in SVT therefore treated with adenosine 6 mg IV, with no affect, received 2nd dose of adenosine 12 mg IV patient developed atrial flutter but heart rate remains in 160s therefore treated with 1 dose of diltiazem 20 mg and Lovenox 100 mg subcutaneously, workup showed normal troponin, TSH 1.68, D-dimer 254, BNP 353, mildly elevated LFTs, WBC 12,100, patient ventricular rate remains in 160s therefore received 2nd dose of IV diltiazem 50 mg and now being admitted to intermediate care unit unit for new onset atrial fibrillation, mild chest tightness, abdominal distension and elevated LFTs. Review of Systems Review of Systems: General no headache, no dizziness no fever chills. CVS chest tightness, no palpitation. Respiratory no cough,no shortness of breath Gastrointestinal no nausea, no vomiting, no abdominal pain no urinary urgency, no frequency Yes all other systems are reviewed and are negative [facility] Medical History Chronic GERD Essential hypertension Obesity VSD (ventricular septal defect) Family History Father No problems noted. Mother No problems noted. Brother Heart attack Family/Other Vascular disease Pertinent family history: Parents are alive have no history of colon cancer Surgical History History of appendectomy History of rectal polypectomy History of surgery on extremity Social History Housing: House Alcohol intake: current Alcohol intake frequency: 3 or more drinks per day Alcohol type: beer and wine Patient Tobacco Use Status: Current someday Tobacco user Tobacco use type: Cigar e-Cigarette/Vaping Use: Never Used Second Hand Smoke Exposure: No Use of substances other than those prescribed or required for medical reasons: No Advance Directives: No Advance Directives Information Provided: No Current occupational status: employed Cognitive needs: No Hearing needs: No Vision needs: No Meds Allergies Allergy/AdvReac Type Severity Reaction Status Date / Time amlodipine AdvReac Unknown Leg Verified 10/11/21 10:33 swelling Active Medications: Current Medications Acetaminophen (Acetaminophen 325 Mg Tablet) 650 mg PO Q6H PRN PRN Reason: Pain, Mild (Pain Scale 1-3) Diltiazem HCl 125 mg/ Sodium (Chloride) 125 mls @ 0 mls/hr IVCONT .Q0M [facility]; Protocol Last Titration: 10/11/21 14:33 Dose: 10 mg/hr, 10 mls/hr Documented by: Ondansetron HCl (Ondansetron Hcl 4 Mg/2 Ml Vial) 4 mg IVPUSH Q8H PRN PRN Reason: Nausea and Vomiting Sodium Chloride (0.9 % Sodium Chloride Flush 3 Ml Syringe) 3 ml IVFLUSH QSHIFT [facility] Home Medications Medication Instructions Recorded Confirmed Last Taken Type loperamide 2 mg tablet 2 mg PO Q4H PRN 10/11/21 10/11/21 Unknown History Physical Exam Vital Signs and Narrative: Vital Signs: Last Vital Signs Temp 97.5 F 10/11/21 11:04 Pulse 60 10/11/21 16:14 Resp 22 H 10/11/21 16:14 BP 138/79 10/11/21 16:14 Pulse Ox 97 10/11/21 16:14 BMI result Body Mass Index 35.6 General awake , alert x3, no acute distress. Neck supple, no JVD. CVS irregular rate rhythm, Respiratory lungs clear to auscultation, no respiratory distress, no wheeze, no rhonchi. Gastrointestinal abdomen distended, nontender, bowel sounds audible, no guarding , no rigidity. Extremities trace edema. Neuro nonfocal Skin no rash Psych appropriate affect Results Labs CBC and Chem 7: 10/11/21 11:23 10/11/21 11:23 Labs: Laboratory Results - last 24 hr 10/11/21 10/11/21 10/11/21 11:22 11:22 11:22 MCV MCH MCHC RDW Plt Count MPV Immature Gran % (Auto) Neut % (Auto) Lymph % (Auto) Carbon % (Auto) Eos % (Auto) Baso % (Auto) Lymph # (Auto) Carbon # (Auto) Eos # (Auto) Baso # (Auto) Abs Immat Gran (auto) Absolute Neuts (auto) Absolute Nucleated RBC Nucleated RBC % (auto) PT Cancelled INR Cancelled APTT Cancelled D-Dimer High Sensitivty Anion Gap Estim Creat Clear Calc Estimated GFR Random Glucose Calcium Total Bilirubin AST ALT Alkaline Phosphatase Troponin I High Sens < 3.5 B-Natriuretic Peptide 353 H Total Protein Albumin Lipase COVID-19 (FELISHA) Negative COVID-19 Clin Com See Note 10/11/21 10/11/21 10/11/21 11:23 11:23 11:23 MCV 102.1 H MCH 34.9 H MCHC 34.2 RDW 12.5 Plt Count 225 MPV 11.6 Immature Gran % (Auto) 0.2 Neut % (Auto) 68.8 Lymph % (Auto) 18.7 L Carbon % (Auto) 10.2 Eos % (Auto) 1.2 Baso % (Auto) 0.9 Lymph # (Auto) 2.3 Carbon # (Auto) 1.2 Eos # (Auto) 0.1 Baso # (Auto) 0.1 Abs Immat Gran (auto) 0.03 Absolute Neuts (auto) 8.3 Absolute Nucleated RBC 0.000 Nucleated RBC % (auto) 0.0 PT 14.0 H INR 1.2 H APTT 36.1 D-Dimer High Sensitivty 254 Anion Gap 14 Estim Creat Clear Calc 84.9 Estimated GFR > 60 Random Glucose 116 H Calcium 9.8 Total Bilirubin 1.2 H AST 48 H ALT 60 H Alkaline Phosphatase 72 Troponin I High Sens B-Natriuretic Peptide Total Protein 7.2 Albumin 4.5 Lipase 21 COVID-19 (FELISHA) COVID-19 Clin Com Imaging Radiologist's Impressions: Impressions Chest X-Ray 10/11/21 11:40 IMPRESSION: Unremarkable examination. Assessment and Plan (1) New onset atrial flutter: Status: Acute (2) Abdominal pain: Qualifiers: Abdominal location: generalized Qualified Code(s): R10.84 - Generalized abdominal pain Status: Acute (3) Dyspnea: Status: Acute (4) Chronic GERD: Status: Acute (5) Insomnia: Status: Acute (6) Obesity: Status: Acute (7) Essential hypertension: Status: Acute (8) VSD (ventricular septal defect): Status: Acute (9) CHF (congestive heart failure): Status: Acute 60-year-old gentleman with past medical history of hypertension, VSD, GERD presented to [facility] due to symptoms of shortness of breath of 1 week duration, in last few days shortness of breath is accompanied with mild chest pain patient also noted abdominal distension of 2-3 weeks duration patient in the ER noted to be in atrial flutter with rapid ventricular rate initially treated with IV adenosine 6 mg followed by 12 mg due to concern for SVT once the heart rate slowed down noted to be in atrial flutter. Shortness of breath/chest tightness Likely due to new onset atrial flutter, abdominal distension, chf,cardiac ischemia,? PE will admit to intermediate care unit on IV Cardizem drip, if ventricular rate remains elevated will treat with digoxin. Will obtain echocardiogram, repeat EKG and troponin History of hypertension/VSD and alcohol abuse likely contributing Continue Lovenox b.i.d. Cardiology consult Acute CHF (unknown cause await echo) new onset ,cxr normal, elevated bnp,likley due to at fib,will obtain echo, treat with iv lasix, follow bmp and BNP,daily wt /i/os,cardio eval Abdominal distension History of colon polyps, chronic diarrhea, ? ascites ,CT abdomen and pelvis ordered follow report. Elevated LFTs Likely due to alcohol induced hepatitis follow CT abdomen and pelvis strongly advised to abstain from alcohol, follow LFTs Alcohol abuse Patient drinks few beers and couple glasses of wine after dinner daily, last in take 1 week ago denies withdrawal symptoms will follow [facility] protocol and consult care team History of hypertension on Coreg, irbesartan/hydrochlorothiazide will follow BP closely while on IV Cardizem drip. Hold irbesartan/hydrochlorothiazide. History of GERD continue PPI DVT prophylaxis On Lovenox Code status full code Quality Stroke Does the patient have a stroke diagnosis?: No VTE Prior VTE?: No VTE Risk Level:: Medical - moderate - high VTE Device Contraindication: Treatment Not Indicated VTE Drug Contraindication: N/A - Med Ordered
--- NOTE | 2021-10-11 16:33 | PHA.MEDREC ---
Pharmacy Consult ? Medication Reconciliation Pharmacy has completed the medication reconciliation. There are no remarkable issues for provider's attention. Marlene Ascencio, EvaD
[2021-10-11 17:03] LABS: Troponin-I High Sensitivity 5.7 ng/L (<3.5-35.0)
[2021-10-11] MEDS: Furosemide 20 MG/2 ML VIAL IVPUSH (17:23)
--- NOTE | 2021-10-11 18:09 | PC.NURSE ---
Pt standing to urinate. HR jumps to 144. Denies dizziness/cp. cardizem continues at 15mcg/hr.
[2021-10-11] MEDS: Digoxin 0.5 MG/2 ML AMPUL 0.25 MG IVPUSH (20:35)
[2021-10-11] MEDS: carvediloL 3.125 MG TABLET PO (20:36)
[2021-10-11] MEDS: Zolpidem Tartrate 5 MG TABLET 10 MG PO (23:47)
[2021-10-12] VITALS (10 sets, daily range): BP systolic 150–180; BP diastolic 90–105; PULSE 75–117; RESP 16–19; TEMP 36.9–37.2; O2SAT 94–98
--- NOTE | 2021-10-12 00:40 | PC.NURSE ---
I assumed care of this patient at 1900 on 10/11. Since that time the pt has remained alert and oriented x 3, calm and cooperative, able to verbalize his needs to staff effectively. He has denied chest pain. His respirations appear non-labored, mildly labored with exertion. He states his work of breathing has improved dramatically since he arrived. Room air sat's remain 95% or better, RR 20-22, speaking in full sentences. When i assumed care Cardizem gtt was infusing at 15mg/hr. Since the pt has received IVP Digoxin his HR has improved to 80's, Afib/flutter. Cardizem has been tapered off, and HR remains 80's. MD Gaytan aware.
[2021-10-12] MEDS: 0.9 % Sodium Chloride Flush 3 ML SYRINGE IVFLUSH ×4 (01:10→21:08)
[2021-10-12] MEDS: Digoxin 0.5 MG/2 ML AMPUL 0.25 MG IVPUSH (02:09)
[2021-10-12] MEDS: Omeprazole 20 MG CAPSULE.DR PO (06:10)
--- NOTE | 2021-10-12 06:50 | PC.NURSE ---
Transported via wheelchair to inpatient bed assignment - 467-1. Nursing report given to EDDIE Ndiaye (? spelling) on inpatient unit. At time of departure from ED to floor pt asleep, wakes to verbal stimuli, is alert and oriented x 3. He denies chest pain, respirations are non-labored, room air sat 97%, Afib rate mid 80's to low 90's on bedside monitor.
--- NOTE | 2021-10-12 07:30 | CA_ITS ---
Transthoracic Echocardiogram Patient (Last, First, Middle): Sky Almendarez M Gender: Male Date of : 1960 Age: 60 Procedure Date: 10/12/2021 Procedure Type: Transthoracic Echocardiogram Location: [facility] [place] Height: 170.18 cm Weight: 102.97 kg BSA: 2.13 m2 Heart Rate: bpm BP: 146 / 99 mmHg Guard Rail Installer: SE Caba MD: Juan Hopkins MD Symptoms: sob Study Quality: Fair Conclusions: - Normal left ventricular size, thickness, systolic function, and wall motion. The visually estimated ejection fraction is between 65-70%. - There is evidence of a small membranous ventricular septal defect. Qp/Qs= 1.2 - Normal right ventricular cavity size. There is borderline right ventricular systolic function. - The left atrium is likely dilated. - There is mild aortic valve regurgitation. - Moderately elevated right atrial pressure. Moderate pulmonary hypertension is present. Findings Left Ventricle Normal left ventricular size, thickness, systolic function, and wall motion. The visually estimated ejection fraction is between 65-70%. Diastolic function is indeterminate on the basis of available data. There is evidence of a small membranous ventricular septal defect. Qp/Qs= 1.2 Right Ventricle Normal right ventricular cavity size. There is borderline right ventricular systolic function. Atria The left atrium is likely dilated. The right atrium is normal in size. Aortic Valve There is mild calcification of the aortic valve. There is mild thickening of the aortic valve. There is no aortic valve stenosis. There is mild aortic valve regurgitation. Mitral Valve Normal mitral valve structure and function. There is no mitral valve regurgitation. There is no mitral valve stenosis. Pulmonic Valve The pulmonic valve is likely normal. There is trace pulmonic valve regurgitation. Tricuspid Valve Normal tricuspid valve structure. There is trace tricuspid valve regurgitation. Moderately elevated right atrial pressure. Moderate pulmonary hypertension is present. Great Vessels All visible segments of the aorta are normal in size. The visualized portions of the pulmonary artery and branches are normal. Venous The inferior vena cava is dilated and collapses greater than 50% with inspiration. Pericardium/Pleural There is no evidence of pericardial effusion. Prior Study Comparison Changes noted compared to prior study dated: 07/29/2019. RV function in some views appears borderline. Measurements 2D Linear Measurements IVSd: 0.94 0.6-0.9/0.6-1.0 cm LVIDd: 4.88 3.9-5.3/4.2-5.9 cm LVIDd Index: 2.29 2.4-3.2/2.2-3.1 cm/m2 LVIDs: 3.05 2.0-3.6 cm LVPWd: 1.05 0.7-1.1 cm Ao Root: 3.30 2.1-3.5 cm LA Diam: 4.10 2.7-3.8/3.0-4.0 cm LAIDs Index: 1.92 1.5-2.3 cm/m2 LV Mass: 216.35 67-162/88-224 g LV Mass Index: 101.57 43-95/49-115 g/m2 LVOT Diam: 2.00 3.0+(-)1.3 cm 2D Systolic Function EF 4C: 60.60 >55% EF 2C: 58.00 >55% EF BiP: 58.40 >55% Mitral Valve E'Lateral: 7.72 E'Medial: 7.18 Aortic Valve AoV Pk Boom: 1.98 AoV Mn Boom: 1.31 AoV VTI: 0.31 AoV Pk Grad: 16.00 Aov Mn Grad: 8.00 KADEN Cont.VTI: 1.98 LVOT LVOT Pk Boom: 1.08 LVOT Mn Boom: 0.67 LVOT VTI: 0.20 LVOT Pk Grad: 5.00 LVOT Mn Grad: 2.00 LVOT Diam: 2.00 LVOT Area: 3.14 Diastolic Function E'Medial: 7.18 E' Laterial: 7.72 Right Ventricle TAPSE (mm): 1.83 TVS' Boom: 10.40 Tricuspid Valve TR Pk Boom: 3.07 TR Pk Grad: 38.00 RA Press: 15.00 RVSP: 53.00 Great Vessels Aorta Ao Root-2D: 3.30 2.0-3.7 cm Ao Asc: 2.80 2.1-3.4 cm Ao Arch: 2.40 Pulmonary Valve PV Pk Boom: 1.38 PV Min Boom: 0.88 Peak PV Grad: 8.00 PV Mn Grad: 4.00 Shunting QP:QS: 1.20 Updated in Other Vendor System with Status of Final Jose R Kelley MD electronically signed on 10/12/2021 1:36:05 PM with status of Final
--- NOTE | 2021-10-12 08:00 | ECG_ITS ---
Test Reason : ATRIAL FLUTTER Blood Pressure : / mmHG Vent. Rate : 111 BPM Atrial Rate : 133 BPM P-R Int : 000 ms QRS Dur : 086 ms QT Int : 354 ms P-R-T Axes : 000 110 096 degrees QTc Int : 481 ms Atrial fibrillation with rapid ventricular response Left posterior fascicular block Anteroseptal infarct (cited on or before 22-NOV-2017) Abnormal ECG When compared with ECG of 11-OCT-2021 12:08, Atrial fibrillation has replaced Atrial flutter ST no longer elevated in Inferior leads Referred By: Juan Hopkins Electronically Signed By:Jose R Kelley
[2021-10-12 08:43] LABS: Hemoglobin 14.2 g/dl (14.0-18.0); Mean Corpuscular HGB Conc 33.8 g/dl (31.0-36.0); Mean Corpuscular Hemoglobin 34.4 pg (27.0-33.0); Mean Corpuscular Volume 101.7 fL (80.0-98.0); Mean Platelet Volume 11.9 fL (9.4-12.4); Platelet Count 199 X10*3/uL (160-400); Red Blood Count 4.13 X10*6/uL (4.60-5.80); Red Cell Distribution Width 12.1 % (11.0-16.0); White Blood Count 11.9 X10*3/uL (4.8-10.8)
[2021-10-12 08:58] LABS: Anion Gap 15 (12-20); Blood Urea Nitrogen 10 mg/dL (9-16); Calcium 9.2 mg/dL (8.4-10.2); Carbon Dioxide 24 mmol/L (22-29); Chloride 103 mmol/L (96-108); Creatinine Clr Calc Pharmacy 105.9; Estimated Glomerular Filt Rate > 60; Glucose Random 94 mg/dL (60-115); Potassium 3.8 mmol/L (3.3-5.1); Sodium 138 mmol/L (135-145)
[2021-10-12 09:09] LABS: B Type Natriuretic Peptide 233 pg/mL (<100)
[2021-10-12] MEDS: Enoxaparin Sodium 100 MG/ML SYRINGE SUBCUT (11:14)
[2021-10-12] MEDS: carvediloL 3.125 MG TABLET PO (11:14)
--- NOTE | 2021-10-12 11:38 | MHC.CM.PN ---
met with pt who lives with his pt is independent does not anticipate needing services when dcd his car is in parking lot here at [facility] dc plan home no servies
[2021-10-12 12:03] LABS: INTERNATIONAL NORM RATIO 1.4 (0.9-1.1); Prothrombin Time 15.9 SEC (9.9-13.0)
--- NOTE | 2021-10-12 12:21 | P.PNIM_ITS ---
Subjective Subjective Date of Service: 10/12/21 Interval History: Feeling better since yesterday, is still complaining of shortness of breath, no chest tightness since has not ambulated, is 1.5 L negative, oxygenation stable. Review of Systems General no headache, no dizziness no fever chills. CVS no chest pain, no palpitation. Respiratory no cough, sob Gastrointestinal no nausea, no vomiting, abdominal distension. Review of Systems: Yes all other systems are reviewed and are negative Physical Exam Vital Signs: Vital Signs: Last Vital Signs Temp 98.6 F 10/12/21 11:22 Pulse 75 10/12/21 11:22 Resp 18 10/12/21 11:22 BP 175/94 H 10/12/21 11: Pulse Ox 98 10/12/21 11:22 BMI result Body Mass Index 35.6 General awake , alert x3, no acute distress.? Neck supple, no JVD. CVS irregular rate rhythm, Respiratory lungs clear to auscultation, basilar crackles, no respiratory distress, no wheeze, no rhonchi. Gastrointestinal abdomen distended, nontender, bowel sounds audible, no guarding , no rigidity. Extremities trace edema. Neuro non focal Skin no rash Psych appropriate affect Objective Data Active Medications Acetaminophen (Acetaminophen 325 Mg Tablet) 650 mg PO Q6H PRN PRN Reason: Pain, Mild (Pain Scale 1-3) Carvedilol (Carvedilol 3.125 Mg Tablet) 6.25 mg PO BID [facility]; Protocol Digoxin (Digoxin 0.125 Mg Tablet) 0.125 mg PO DAILY [facility] Enoxaparin Sodium (Enoxaparin Sodium 100 Mg/Ml Syringe) 100 mg SUBCUT Q12H [facility] Last Admin: 10/12/21 11:14 Dose: 100 mg Documented by: SHIVA Furosemide (Furosemide 20 Mg/2 Ml Vial) 20 mg IVPUSH BID@0900,1800 [facility]; Protocol Furosemide (Furosemide 20 Mg/2 Ml Vial) 20 mg IVPUSH ONCE ONE; Protocol Stop: 10/12/21 12:19 Loperamide HCl (Loperamide Hcl 2 Mg Capsule) 2 mg PO Q4H PRN PRN Reason: Diarrhea Omeprazole (Omeprazole 20 Mg Capsule.) 20 mg PO DAILY@0630 [facility] Last Admin: 10/12/21 06:10 Dose: 20 mg Documented by: LINO Ondansetron HCl (Ondansetron Hcl 4 Mg/2 Ml Vial) 4 mg IVPUSH Q8H PRN PRN Reason: Nausea and Vomiting Pharmacy Consult (Consult Rx Perform Med Rec) 1 each MISCELLANE ONCE PRN PRN Reason: Consult order Sodium Chloride (0.9 % Sodium Chloride Flush 3 Ml Syringe) 3 ml IVFLUSH QSHIFT ANNM[facility]IE Last Admin: 10/12/21 11:14 Dose: 3 ml Documented by: SHIVA Zolpidem Tartrate (Zolpidem Tartrate 5 Mg Tablet) 10 mg PO BEDTIME PRN PRN Reason: sleep Last Admin: 10/11/21 23:47 Dose: 5 mg Documented by: LINO Comments: PT STATES HE ROUTINELY TAKES ONE HALF OF A 10MG TABLET NIGHTLY. Labs CBC & Chem 7: 10/12/21 07:41 10/12/21 07:41 Labs: Laboratory Results - last 24 hr 10/11/21 10/12/21 10/12/21 16:34 07:41 07:41 MCV 101.7 H MCH 34.4 H MCHC 33.8 RDW 12.1 Plt Count 199 MPV 11.9 Absolute Nucleated RBC 0.000 Nucleated RBC % (auto) 0.0 PT INR Anion Gap 15 Estim Creat Clear Calc 105.9 Estimated GFR > 60 Random Glucose 94 Calcium 9.2 D Troponin I High Sens 5.7 D B-Natriuretic Peptide 10/12/21 10/12/21 07:41 11:46 MCV MCH MCHC RDW Plt Count MPV Absolute Nucleated RBC Nucleated RBC % (auto) PT 15.9 H INR 1.4 H Anion Gap Estim Creat Clear Calc Estimated GFR Random Glucose Calcium Troponin I High Sens B-Natriuretic Peptide 233 H Assessment and Plan (1) CHF (congestive heart failure): Status: Acute (2) New onset atrial flutter: Status: Acute (3) Obesity: Status: Acute (4) Chronic GERD: Status: Acute (5) Hypertension: Status: Acute (6) Transaminitis: Status: Acute Assessment and Plan: 60-year-old gentleman with past medical history of hypertension, VSD, GERD presented to [facility] due to symptoms of shortness of breath of 1 week duration, in last few days shortness of breath is accompanied with mild chest pain patient also noted abdominal distension of 2-3 weeks duration patient in the ER noted to be in atrial flutter with rapid ventricular rate initially treated with IV adenosine 6 mg followed by 12 mg due to concern for SVT once the heart rate slowed down noted to be in atrial flutter. New onset atrial flutter Persistent atrial flutter heart rate improved with IV Cardizem drip and digoxin Case discussed with Cardiology they recommend to DC IV Cardizem and continue digoxin and Coreg. Cardioversion tomorrow morning will keep him NPO Follow echo history of hypertension/VSD and alcohol abuse likely contributing Continue Lovenox b.i.d. Acute CHF (unknown cause await echo) new onset , likely due to arrhythmia, bnp dropped from 353 t0 233 , follow echo Will place on IV Lasix 20 mg b.i.d., follow bmp and BNP,daily wt /i/os, Case discussed with Cardiology they agree with above plan. Abdominal distension History of colon polyps, chronic diarrhea,CT abdomen and pelvis showed small amount of ascites around the liver, periportal region, pancreas and in bilateral lower quadrants, normal size gallbladder question mild gallbladder wall thickening versus pericholecystic fluid small periportal and peripancreatic lymph nodes, will consult Dr. Morley patient's primary [employer]. Elevated LFTs Likely due to alcohol induced hepatitis , CT abdomen and pelvis as above strongly advised to abstain from alcohol, LFTs table since last couple years , obtain care team consult Alcohol abuse Patient drinks few beers and couple glasses of wine after dinner daily, last intake 1 week ago denies withdrawal symptoms will follow CIWA protocol and consult care team History of hypertension Continue Coreg dose increased to 6.25, replace a was started in with losartan follow BP closely History of GERD continue PPI DVT prophylaxis On Lovenox Code status full code Quality Stroke Does the patient have a stroke diagnosis?: No VTE Prior VTE?: No VTE Risk Level:: Medical - moderate - high VTE Device Contraindication: Treatment Not Indicated VTE Drug Contraindication: N/A - Med Ordered
--- NOTE | 2021-10-12 12:30 | P.PNCA_ITS ---
Subjective Subjective Date of Service: 10/12/21 Interval history: Feeling palpitations. Short of breath. Telemetry is now showing atrial fibrillation. Physical Exam Vital Signs: Last Vital Signs Temp 98.6 F 10/12/21 11:22 Pulse 75 10/12/21 11:22 Resp 18 10/12/21 11:22 BP 175/94 H 10/12/21 11:22 Pulse Ox 98 10/12/21 11:22 BMI result Body Mass Index 35.6 GENERAL APPEARANCE: Short of breath. NECK: no carotid bruit, mild jugular venous distention. SKIN: no suspicious lesions, warm and dry. HEART: Holosystolic murmurs, irregular rate and rhythm. LUNGS: Mild wheezes. ABDOMEN: soft, nontender. EXTREMITIES: no edema. PERIPHERAL PULSES: equal. NEUROLOGIC: No gross deficits, AAO X 3 Objective Labs and Meds Result diagrams: 10/12/21 07:41 10/12/21 07:41 Lab results: Laboratory Results - last 24 hr 10/11/21 10/12/21 10/12/21 16:34 07:41 07:41 WBC 11.9 H RBC 4.13 L Hgb 14.2 Hct 42.0 MCV 101.7 H MCH 34.4 H MCHC 33.8 RDW 12.1 Plt Count 199 MPV 11.9 Absolute Nucleated RBC 0.000 Nucleated RBC % (auto) 0.0 PT INR Sodium 138 Potassium 3.8 Chloride 103 Carbon Dioxide 24 Anion Gap 15 BUN 10 Creatinine 0.85 Estim Creat Clear Calc 105.9 Estimated GFR > 60 Random Glucose 94 Calcium 9.2 D Troponin I High Sens 5.7 D B-Natriuretic Peptide 10/12/21 10/12/21 07:41 11:46 WBC RBC Hgb Hct MCV MCH MCHC RDW Plt Count MPV Absolute Nucleated RBC Nucleated RBC % (auto) PT 15.9 H INR 1.4 H Sodium Potassium Chloride Carbon Dioxide Anion Gap BUN Creatinine Estim Creat Clear Calc Estimated GFR Random Glucose Calcium Troponin I High Sens B-Natriuretic Peptide 233 H Imaging Radiologist's impression: Impressions Abdomen/Pelvis CT 10/11/21 16:33 IMPRESSION: Mild diverticulosis of the colon. No evidence of diverticulitis or bowel ischemia seen. Normal-appearing mesenteric vasculature. Small amount of ascites around the liver, periportal region, pancreas and in the bilateral lower quadrants. Normal-size gallbladder. Question mild gallbladder wall thickening versus of pericholecystic fluid. Small periportal and peripancreatic lymph nodes. Fleischner guidelines were followed. Chest CTA 10/11/21 16:33 IMPRESSION: No evidence of pulmonary embolism. Enlarged heart, mixed interstitial and groundglass attenuation lung disease and small bilateral pleural effusions. Findings are suggestive of mild CHF. Mild narrowing of the proximal descending thoracic aorta just distal to the origin of the left subclavian artery questionable for mild coarctation. Very small pericardial effusion. Left axillary lymphadenopathy. VTE: negative Progress Note: A&P Assessment and plan (1) CHF (congestive heart failure): Status: Acute (2) New onset atrial flutter: Status: Acute Assessment and Plan: Pleasant 60-year-old gentleman who has background of ventricular septal defect and alcohol use was presenting with new onset atrial flutter and dyspnea. He was started on Cardizem drip for rate control. His telemetry now showing atrial fibrillation. He is saying when he walks a gets really out of breath and has significant palpitations. Clinically he appears in heart failure also. I think we continue IV diuretics. I would not use more Cardizem in him. I think carvedilol can be titrated slowly. Given digoxin. I am increasing the losartan to 100 mg because his blood pressure significant elevated. He has alcoholism and need to monitor him for withdrawal because that will affect his heart rate as well as blood pressure. Stop the Lovenox and start him on Eliquis. He has congestive heart failure hypertension and I think he will need anticoagulation going forward. We will do FILIPE cardioversion on him tomorrow. Please keep him NPO. Thank you for allowing me to participate in the care of your patient. Please feel free to contact me if you have any questions. Fall Risk Details Current Medications: Current Medications Acetaminophen (Acetaminophen 325 Mg Tablet) 650 mg PO Q6H PRN PRN Reason: Pain, Mild (Pain Scale 1-3) Carvedilol (Carvedilol 3.125 Mg Tablet) 6.25 mg PO BID REPLACED BY [facility]; Protocol Digoxin (Digoxin 0.125 Mg Tablet) 0.125 mg PO DAILY REPLACED BY [facility] Enoxaparin Sodium (Enoxaparin Sodium 100 Mg/Ml Syringe) 100 mg SUBCUT Q12H REPLACED BY [facility] Last Admin: 10/12/21 11:14 Dose: 100 mg Documented by: Furosemide (Furosemide 20 Mg/2 Ml Vial) 20 mg IVPUSH BID@0900,1800 REPLACED BY [facility]; Protocol Furosemide (Furosemide 20 Mg/2 Ml Vial) 20 mg IVPUSH ONCE ONE; Protocol Stop: 10/12/21 12:19 Loperamide HCl (Loperamide Hcl 2 Mg Capsule) 2 mg PO Q4H PRN PRN Reason: Diarrhea Losartan Potassium (Losartan Potassium 50 Mg Tablet) 50 mg PO DAILY REPLACED BY [facility]; Protocol Omeprazole (Omeprazole 20 Mg Capsule.Dr) 20 mg PO DAILY@0630 REPLACED BY [facility] Last Admin: 10/12/21 06:10 Dose: 20 mg Documented by: Ondansetron HCl (Ondansetron Hcl 4 Mg/2 Ml Vial) 4 mg IVPUSH Q8H PRN PRN Reason: Nausea and Vomiting Pharmacy Consult (Consult Rx Perform Med Rec) 1 each MISCELLANE ONCE PRN PRN Reason: Consult order Sodium Chloride (0.9 % Sodium Chloride Flush 3 Ml Syringe) 3 ml IVFLUSH QSHIFT REPLACED BY [facility] Last Admin: 10/12/21 11:14 Dose: 3 ml Documented by: Zolpidem Tartrate (Zolpidem Tartrate 5 Mg Tablet) 10 mg PO BEDTIME PRN PRN Reason: sleep Last Admin: 10/11/21 23:47 Dose: 5 mg Documented by: Time Spent With Patient Time: Total time spent is greater than 50% in coordination of care (as documented) at patient's floor/unit and/or counseling patient: Time with patient: Greater than 35 minutes Progress Note: Quality Stroke Does the patient have a stroke diagnosis?: No Procedures Date of Service Date of Service: 10/12/21
[2021-10-12] MEDS: Furosemide 20 MG/2 ML VIAL IVPUSH ×2 (13:06→17:53)
[2021-10-12] MEDS: Digoxin 0.125 MG TABLET PO (13:06)
[2021-10-12] MEDS: Losartan Potassium 50 MG TABLET PO ×2 (13:07→13:27)
--- NOTE | 2021-10-12 15:49 | PM.EVENT ---
Event Note Date of Service: 10/12/21 Event Note: GI consult dictated Mild elevation of lfts, likely due to alcohol and fatty liver (seen on prior US) FH of hemochromatosis in father; iron studies ordered. I advised him to d/c alcohol. He has had a change in bowels for about a year with no bleeding and can f/u as outpatient after cardiac issues are stable. Continue ppi for gerd
[2021-10-12] MEDS: Apixaban 5 MG TABLET PO (21:07)
[2021-10-12] MEDS: Zolpidem Tartrate 5 MG TABLET 10 MG PO (21:07)
[2021-10-12] MEDS: carvediloL 6.25 MG TABLET PO (21:07)
[2021-10-13] VITALS (12 sets, daily range): BP systolic 114–171; BP diastolic 62–107; PULSE 71–103; RESP 16–19; TEMP 36.5–37.2; O2SAT 94–99
--- NOTE | 2021-10-13 02:06 | CONS_ITS ---
DATE OF SERVICE: 10/12/2021 REFERRING PHYSICIAN: Juan Hopkins MD REASON FOR CONSULTATION: Ascites and elevated liver function tests. HISTORY OF PRESENT ILLNESS: The patient is a pleasant 60-year-old man, who was admitted to the hospital on October 11 after presenting to the emergency room from his primary care provider's office. He reports about 1 week of symptomatic shortness of breath, worse with exertion and some chest tightness, which prompted him to visit his primary care provider, where he was noted to have a heart rate around 160. He was transferred to the emergency room, where he was evaluated and treated with adenosine, subsequently developing atrial flutter, which required diltiazem and Lovenox and admitted to the hospital. As part of his evaluation, he underwent CT scanning of the abdomen and pelvis as he has noted abdominal bloating associated with this chest symptoms, this is reviewed and is interpreted as showing colonic diverticulosis with a small amount of ascites around the liver. Previous imaging has shown fatty liver. The patient estimates he drinks approximately 4 to 6 drinks on a daily basis with more on the weekends. Liver function tests on admission were noted to be elevated with an AST of 48 and an ALT of 60. These were also elevated on fasting blood work, he did for his primary care provider approximately 5 days ago with an AST of 40 and 48, and bilirubin of 1.3. He also reports that for about a year, he has had change in his bowel habits with loose stools in the morning and some mucus, but no rectal bleeding. He does have a history of undergoing colonoscopy, most recently in August of 2016, which showed diverticulosis, small internal hemorrhoids, and a small hyperplastic polyp. He has had previous tubular adenomas and is due for a followup office visit to schedule another colonoscopy in November. He reports that cardioversion is planned for tomorrow. PAST MEDICAL HISTORY: 1. Fatty liver. 2. Colon polyps. 3. Gastroesophageal reflux disease. 4. VSD. 5. Hypertension. CURRENT MEDICATIONS: His current medication list is reviewed in the chart. ALLERGIES: AMLODIPINE. FAMILY HISTORY: This is positive for hemochromatosis in his father. SOCIAL HISTORY: He does smoke about 1 cigar per day. Alcohol use is as noted above. There is no other substance abuse. 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 REVIEW OF SYSTEMS: SKIN: No pruritus. HEENT: Negative. CARDIOPULMONARY: No shortness of breath or chest pain currently. GASTROINTESTINAL: As above. GENITOURINARY: Negative. NEUROPSYCHIATRIC: Negative. PHYSICAL EXAMINATION: GENERAL: Shows a pleasant male, lying comfortably in bed. VITAL SIGNS: Reviewed in the electronic medical record and are stable. SKIN: Anicteric. HEENT: Shows no scleral icterus. NECK: Without lymphadenopathy or thyromegaly. LUNGS: Clear. HEART: Shows an irregular, S1, S2. No murmur. ABDOMEN: Soft without focal masses, tenderness, guarding, or rebound. Bowel sounds are present. No organomegaly is noted. EXTREMITIES: Show 2 mm pretibial pitting edema. LABORATORY DATA: Reviewed. This shows a white blood cell count of 11.9, hematocrit 42, MCV is high at 101.7. Liver function tests are reviewed. Previous liver evaluation has shown no evidence of chronic active hepatitis. Smooth muscle antibodies have been negative and alpha-1 antitrypsin was normal. Iron studies were within normal limits. IMPRESSION: Elevated liver function tests with a small amount of ascites seen on CT scanning. It appears that he does have some underlying fatty liver, likely on the basis of alcohol use and elevated body mass index and his ascites may be related to alcohol use as well. The liver does not seem definitely cirrhotic on CT scanning and he has no evidence of portal hypertension. I did discuss with him the need to decrease alcohol use. I would recommend repeating iron studies in the morning. These have been ordered and he will need followup colonoscopy at some point because of his symptoms. This can be deferred until after his cardiac issues are stabilized. I agree with treating him with a proton pump inhibitor for his chronic reflux symptoms. Thanks for asking me to see him. I will follow him in the hospital with you. MD KAYLAN Joel/BIJU / [id number] [email or web address]
[2021-10-13] MEDS: 0.9 % Sodium Chloride Flush 3 ML SYRINGE IVFLUSH ×3 (07:48→20:34)
[2021-10-13] MEDS: Digoxin 0.125 MG TABLET PO (07:48)
[2021-10-13] MEDS: carvediloL 6.25 MG TABLET PO ×2 (07:48→12:54)
[2021-10-13] MEDS: Losartan Potassium 50 MG TABLET 100 MG PO (07:48)
[2021-10-13] MEDS: Furosemide 20 MG/2 ML VIAL IVPUSH ×2 (07:51→16:33)
[2021-10-13 08:29] LABS: Anion Gap 16 (12-20); Blood Urea Nitrogen 13 mg/dL (9-16); Calcium 9.3 mg/dL (8.4-10.2); Carbon Dioxide 25 mmol/L (22-29); Chloride 103 mmol/L (96-108); Creatinine Clr Calc Pharmacy 102.1; Estimated Glomerular Filt Rate > 60; Glucose Random 84 mg/dL (60-115); Potassium 3.5 mmol/L (3.3-5.1); Sodium 140 mmol/L (135-145)
[2021-10-13 08:32] LABS: B Type Natriuretic Peptide 268 pg/mL (<100)
--- NOTE | 2021-10-13 09:20 | HO.ANESPROP2 ---
[facility] Active Problems Active Problems: All Active Problems (Updated 10/12/21 @ 12:24 by Juan Hopkins MD) Transaminitis (Acute) CHF (congestive heart failure) (Acute) New onset atrial flutter (Acute) Abdominal pain (Acute) Dyspnea (Acute) Chronic GERD (Acute) Insomnia (Acute) Obesity (Acute) Physical exam (Acute) Essential hypertension (Acute) VSD (ventricular septal defect) (Acute) Hypertension (Acute) Physical exam, annual (Acute) Past Medical History Medical History Chronic GERD Essential hypertension Obesity VSD (ventricular septal defect) Family History Family History Father No problems noted. Mother No problems noted. Brother Heart attack Family/Other Vascular disease Surgical History Surgical History History of appendectomy History of rectal polypectomy History of surgery on extremity History of Problems with Anesthesia: No Social History Social History Household Members: Spouse Housing: House Do you presently have visiting nurse or other home services: No Alcohol intake: current Alcohol intake frequency: 3 or more drinks per day Alcohol type: beer and wine Patient Tobacco Use Status: Current everyday Tobacco user Tobacco use type: Cigar e-Cigarette/Vaping Use: Never Used Second Hand Smoke Exposure: No Use of substances other than those prescribed or required for medical reasons: No Currently Displaying Signs/Symptoms of Drug Intoxication Withdrawal: No Have you been hit, kicked, punched, or otherwise hurt by someone within the past year? If so, by whom?: No Do you feel safe in your current relationship?: No Is there a partner from a previous relationship who is making you feel unsafe now?: No Are you made to feel afraid or neglected: No Are you DNR?: No Advance Directives: No Advance Directives Information Provided: No Do you have thoughts of harming others: None Do you have a plan to hurt others: No Plan Recently lost weight without trying: No Nutrition Risks: No Nutritional Risk Poor oral hygiene: No service: No Current occupational status: employed Cognitive needs: No Hearing needs: No Vision needs: No Meds Allergies Allergy/AdvReac Type Severity Reaction Status Date / Time amlodipine AdvReac Unknown Leg Verified 10/11/21 10:33 swelling Active Medications: Current Medications Acetaminophen (Acetaminophen 325 Mg Tablet) 650 mg PO Q6H PRN PRN Reason: Pain, Mild (Pain Scale 1-3) Apixaban (Apixaban 5 Mg Tablet) 5 mg PO BID [facility] Last Admin: 10/12/21 21:07 Dose: 5 mg Documented by: Carvedilol (Carvedilol 6.25 Mg Tablet) 6.25 mg PO BID [facility]; Protocol Last Admin: 10/13/21 07:48 Dose: 6.25 mg Documented by: Digoxin (Digoxin 0.125 Mg Tablet) 0.125 mg PO DAILY [facility] Last Admin: 10/13/21 07:48 Dose: 0.125 mg Documented by: Furosemide (Furosemide 20 Mg/2 Ml Vial) 20 mg IVPUSH BID@0900,1800 [facility]; Protocol Last Admin: 10/13/21 07:51 Dose: 20 mg Documented by: Loperamide HCl (Loperamide Hcl 2 Mg Capsule) 2 mg PO Q4H PRN PRN Reason: Diarrhea Losartan Potassium (Losartan Potassium 50 Mg Tablet) 100 mg PO DAILY [facility]; Protocol Last Admin: 10/13/21 07:48 Dose: 100 mg Documented by: Omeprazole (Omeprazole 20 Mg Capsule.Dr) 20 mg PO DAILY@0630 [facility] Last Admin: 10/13/21 06:14 Dose: Not Given Documented by: Ondansetron HCl (Ondansetron Hcl 4 Mg/2 Ml Vial) 4 mg IVPUSH Q8H PRN PRN Reason: Nausea and Vomiting Pharmacy Consult (Consult Rx Perform Med Rec) 1 each MISCELLANE ONCE PRN PRN Reason: Consult order Sodium Chloride (0.9 % Sodium Chloride Flush 3 Ml Syringe) 3 ml IVFLUSH QSHIFT [facility] Last Admin: 10/13/21 07:48 Dose: 3 ml Documented by: Zolpidem Tartrate (Zolpidem Tartrate 5 Mg Tablet) 10 mg PO BEDTIME PRN PRN Reason: sleep Last Admin: 10/12/21 21:07 Dose: 10 mg Documented by: Home Medications Medication Instructions Recorded Confirmed Last Taken Type loperamide 2 mg tablet 2 mg PO Q4H PRN 10/11/21 10/11/21 Unknown History Exam Exam Date and Time: October 13, 2021 0920 Height,Weight and Vital Signs: Height 5 ft 7 in Weight 103.4 kg Last Vital Signs Temp 98.5 F 10/13/21 07:39 Pulse 98 10/13/21 09:17 Resp 18 10/13/21 07:39 BP 156/98 H 10/13/21 09:17 Pulse Ox 99 10/13/21 07:39 Pertinent Lab Results Pertinent Lab Results: Laboratory Tests 10/11/21 10/11/21 10/11/21 11:22 11:22 11:22 WBC RBC Hgb Hct MCV MCH MCHC RDW Plt Count MPV Immature Gran % (Auto) Neut % (Auto) Lymph % (Auto) Polk % (Auto) Eos % (Auto) Baso % (Auto) Lymph # (Auto) Polk # (Auto) Eos # (Auto) Baso # (Auto) Abs Immat Gran (auto) Absolute Neuts (auto) Absolute Nucleated RBC Nucleated RBC % (auto) PT Cancelled INR Cancelled APTT Cancelled D-Dimer High Sensitivty Sodium Potassium Chloride Carbon Dioxide Anion Gap BUN Creatinine Estim Creat Clear Calc Estimated GFR Random Glucose Calcium Total Bilirubin AST ALT Alkaline Phosphatase Troponin I High Sens < 3.5 B-Natriuretic Peptide 353 H Total Protein Albumin Lipase COVID-19 (FELISHA) Negative COVID-19 Clin Com See Note 10/11/21 10/11/21 10/11/21 11:23 11:23 11:23 WBC 12.1 H RBC 4.38 L Hgb 15.3 Hct 44.7 MCV 102.1 H MCH 34.9 H MCHC 34.2 RDW 12.5 Plt Count 225 MPV 11.6 Immature Gran % (Auto) 0.2 Neut % (Auto) 68.8 Lymph % (Auto) 18.7 L Polk % (Auto) 10.2 Eos % (Auto) 1.2 Baso % (Auto) 0.9 Lymph # (Auto) 2.3 Polk # (Auto) 1.2 Eos # (Auto) 0.1 Baso # (Auto) 0.1 Abs Immat Gran (auto) 0.03 Absolute Neuts (auto) 8.3 Absolute Nucleated RBC 0.000 Nucleated RBC % (auto) 0.0 PT 14.0 H INR 1.2 H APTT 36.1 D-Dimer High Sensitivty 254 Sodium 138 Potassium 4.2 Chloride 105 Carbon Dioxide 23 Anion Gap 14 BUN 13 Creatinine 1.06 Estim Creat Clear Calc 84.9 Estimated GFR > 60 Random Glucose 116 H Calcium 9.8 Total Bilirubin 1.2 H AST 48 H ALT 60 H Alkaline Phosphatase 72 Troponin I High Sens B-Natriuretic Peptide Total Protein 7.2 Albumin 4.5 Lipase 21 COVID-19 (FELISHA) COVID-19 Clin Com 10/11/21 10/12/21 10/12/21 16:34 07:41 07:41 WBC 11.9 H RBC 4.13 L Hgb 14.2 Hct 42.0 MCV 101.7 H MCH 34.4 H MCHC 33.8 RDW 12.1 Plt Count 199 MPV 11.9 Immature Gran % (Auto) Neut % (Auto) Lymph % (Auto) Polk % (Auto) Eos % (Auto) Baso % (Auto) Lymph # (Auto) Polk # (Auto) Eos # (Auto) Baso # (Auto) Abs Immat Gran (auto) Absolute Neuts (auto) Absolute Nucleated RBC 0.000 Nucleated RBC % (auto) 0.0 PT INR APTT D-Dimer High Sensitivty Sodium 138 Potassium 3.8 Chloride 103 Carbon Dioxide 24 Anion Gap 15 BUN 10 Creatinine 0.85 Estim Creat Clear Calc 105.9 Estimated GFR > 60 Random Glucose 94 Calcium 9.2 D Total Bilirubin AST ALT Alkaline Phosphatase Troponin I High Sens 5.7 D B-Natriuretic Peptide Total Protein Albumin Lipase COVID-19 (FELISHA) COVID-19 Clin Com 10/12/21 10/12/21 10/13/21 07:41 11:46 06:26 WBC RBC Hgb Hct MCV MCH MCHC RDW Plt Count MPV Immature Gran % (Auto) Neut % (Auto) Lymph % (Auto) Polk % (Auto) Eos % (Auto) Baso % (Auto) Lymph # (Auto) Polk # (Auto) Eos # (Auto) Baso # (Auto) Abs Immat Gran (auto) Absolute Neuts (auto) Absolute Nucleated RBC Nucleated RBC % (auto) PT 15.9 H INR 1.4 H APTT D-Dimer High Sensitivty Sodium 140 Potassium 3.5 Chloride 103 Carbon Dioxide 25 Anion Gap 16 BUN 13 Creatinine 0.87 Estim Creat Clear Calc 102.1 Estimated GFR > 60 Random Glucose 84 Calcium 9.3 Total Bilirubin AST ALT Alkaline Phosphatase Troponin I High Sens B-Natriuretic Peptide 233 H Total Protein Albumin Lipase COVID-19 (FELISHA) COVID-19 Clin Com 10/13/21 06:26 WBC RBC Hgb Hct MCV MCH MCHC RDW Plt Count MPV Immature Gran % (Auto) Neut % (Auto) Lymph % (Auto) Polk % (Auto) Eos % (Auto) Baso % (Auto) Lymph # (Auto) Polk # (Auto) Eos # (Auto) Baso # (Auto) Abs Immat Gran (auto) Absolute Neuts (auto) Absolute Nucleated RBC Nucleated RBC % (auto) PT INR APTT D-Dimer High Sensitivty Sodium Potassium Chloride Carbon Dioxide Anion Gap BUN Creatinine Estim Creat Clear Calc Estimated GFR Random Glucose Calcium Total Bilirubin AST ALT Alkaline Phosphatase Troponin I High Sens B-Natriuretic Peptide 268 H Total Protein Albumin Lipase COVID-19 (FELISHA) COVID-19 Clin Com Airway Mallampati Class: II TM Dist: >3cm Neck ROM: Full Loose/Missing/Broken Teeth: No Heart: RRR Lungs: CTA Assessment and Plan Assessment Anesthesia Assessment: Anesthesia Plan Discussed and Chart Reviewed Final Anesthetic Review History of Problems with Anesthesia: No NPO: Yes ASA Class: III Final Preanesthetic Review: Meds/Allgs Chart Reviewed, Consent Obtained/Reviewed and Anes Risks/Benef Reviewed Patient Risk: Intermediate Procedure Risk: Intermediate Anesthetic Plan Anesthetic Plan: GA and MAC: Disposition: Standard PACU
[2021-10-13] MEDS: Apixaban 5 MG TABLET PO ×2 (10:28→20:31)
--- NOTE | 2021-10-13 10:30 | CA_ITS ---
Transthoracic Echocardiogram Patient (Last, First, Middle): Sky Almendarez M Gender: Male Date of : 1960 Age: 61 Procedure Date: 10/13/2021 Procedure Type: Transthoracic Echocardiogram Location: [facility] [place] Height: 170.18 cm Weight: 102.97 kg BSA: 2.13 m2 Heart Rate: bpm Dyeing Machine Feeder: SE Referring MD: Jose R Kelley MD Symptoms: Afib Conclusions: - Normal left ventricular size and systolic function. - There is no evidence of a thrombus in the left atrial appendage. There is no evidence of thrombus or mass in the left atrium. Findings Left Ventricle Normal left ventricular size and systolic function. The visually estimated ejection fraction is between 55-60%. There is no evidence of regional wall motion abnormalities. Right Ventricle Normal right ventricular cavity size and systolic function. Atria There is no evidence of a thrombus in the left atrial appendage. There is no evidence of thrombus or mass in the left atrium. Aortic Valve There is a normal trileaflet aortic valve. There is no aortic valve regurgitation. Mitral Valve The mitral valve appears normal. There is mild mitral valve regurgitation. Pulmonic Valve The pulmonic valve was not well visualized. Tricuspid Valve Normal tricuspid valve structure. There is mild tricuspid valve regurgitation. Great Vessels All visible segments of the aorta are normal in size. Pericardium/Pleural There is no evidence of pericardial effusion. Updated in Other Vendor System with Status of Final Jose R Kelley MD electronically signed on 10/14/2021 10:28:48 PM with status of Final
--- NOTE | 2021-10-13 10:49 | PC.NURSE ---
called floor nurse adebayo to give am dose of eliquis. spoke to md segura and states it was okay to give the coreg dose of po once after the procedure.
--- NOTE | 2021-10-13 11:53 | ECG_ITS ---
Test Reason : post cardioversion Blood Pressure : / mmHG Vent. Rate : 075 BPM Atrial Rate : 075 BPM P-R Int : 212 ms QRS Dur : 090 ms QT Int : 440 ms P-R-T Axes : 031 108 081 degrees QTc Int : 491 ms Sinus rhythm with 1st degree A-V block Possible Left atrial enlargement Rightward axis Low voltage QRS Cannot rule out Anteroseptal infarct (cited on or before 22-NOV-2017) Abnormal ECG When compared with ECG of 12-OCT-2021 14:10, Sinus rhythm has replaced Atrial fibrillation Referred By: Jose R Kelley Electronically Signed By:Jose R Kelley
--- NOTE | 2021-10-13 12:53 | MHC.SHP ---
Pre-Procedural Eval Section A Date of Service: 10/13/21 The patient is an INPATIENT: Yes Section B Chief Complaint: shortness of breath, Afib Details of Present Illness: 61 male with DUQUE and Afib. Here for FILIPE/cardioversion Allergies: Allergies Allergy/AdvReac Type Severity Reaction Status Date / Time amlodipine AdvReac Unknown Leg Verified 10/11/21 10:33 swelling Plan Diagnosis/Plan: Unchanged I have reviewed the history and physical and performed a pertinent physical examination on my patient. No changes have occurred unless specified.
--- NOTE | 2021-10-13 12:54 | HO.CARDIVERS ---
Cardioversion Procedure Note Cardioversion Date of Procedure: 10/13/21 Ordering Provider: Jose R Kelley Performing Provider: Jose R Kelley Indication for Procedure: Afib Pre-Op Diagnosis: Afib Post-Op Diagnosis: Afib, no LUIS clot. Performed with Transesophageal Echo: Yes FILIPE findings (if FILIPE Performed): No LA or LUIS clot History: 61 male with DUQUE and Afib with RVR. Consent: Verbal and Written consent was obtained from the patient before starting. The patient was made aware of the risk of stroke. Procedure: After consent obtained, defib pads were attached and the patient was sedated by the anesthesia team. Once adequate sedation achieved, the patient was given a single shock of 200 J and converted to sinus rhythm, Complications: None Recommendations: c/w Carrie.
--- NOTE | 2021-10-13 14:01 | HO.PM.IMPN ---
Subjective Subjective Date of Service: 10/13/21 Interval History: Being followed for a new onset atrial fibrillation and congestive heart failure, feeling better this morning, no shortness of breath abdominal distension has improved, slept well, denies chest pressure. Review of Systems General no headache, no dizziness no fever chills.? CVS no chest pain, no palpitation.? Respiratory no cough, sob Gastrointestinal no nausea, no vomiting, abdominal distension. Review of Systems: Yes all other systems are reviewed and are negative Physical Exam Vital Signs: Vital Signs: Last Vital Signs Temp 97.7 F 10/13/21 11:50 Pulse 76 10/13/21 12:54 Resp 17 10/13/21 11:50 BP 149/87 H 10/13/21 12:54 Pulse Ox 97 10/13/21 11:50 BMI result Body Mass Index 35.6 General awake , alert x3, no acute distress.? Neck supple, no JVD. CVS irregular rate rhythm, Respiratory lungs clear to auscultation, no crackles, no respiratory distress, no wheeze, no rhonchi. Gastrointestinal abdomen less distended, nontender, bowel sounds audible, no guarding , no rigidity. Extremities no edema. Neuro non focal Skin no rash Psych appropriate affect Objective Data Active Medications Acetaminophen (Acetaminophen 325 Mg Tablet) 650 mg PO Q6H PRN PRN Reason: Pain, Mild (Pain Scale 1-3) Apixaban (Apixaban 5 Mg Tablet) 5 mg PO BID [facility] Last Admin: 10/13/21 10:28 Dose: 5 mg Documented by: SHIVA Carvedilol (Carvedilol 12.5 Mg Tablet) 12.5 mg PO BID [facility]; Protocol Digoxin (Digoxin 0.125 Mg Tablet) 0.125 mg PO DAILY [facility] Last Admin: 10/13/21 07:48 Dose: 0.125 mg Documented by: SHIVA Furosemide (Furosemide 20 Mg/2 Ml Vial) 20 mg IVPUSH BID@0900,1800 [facility]; Protocol Last Admin: 10/13/21 07:51 Dose: 20 mg Documented by: SHIVA Loperamide HCl (Loperamide Hcl 2 Mg Capsule) 2 mg PO Q4H PRN PRN Reason: Diarrhea Losartan Potassium (Losartan Potassium 50 Mg Tablet) 100 mg PO DAILY [facility]; Protocol Last Admin: 10/13/21 07:48 Dose: 100 mg Documented by: SHIVA Omeprazole (Omeprazole 20 Mg Capsule.) 20 mg PO DAILY@0630 [facility] Last Admin: 10/13/21 06:14 Dose: Not Given Documented by: ANAIS Non-Admin Reason: NPO Ondansetron HCl (Ondansetron Hcl 4 Mg/2 Ml Vial) 4 mg IVPUSH Q8H PRN PRN Reason: Nausea and Vomiting Pharmacy Consult (Consult Rx Perform Med Rec) 1 each MISCELLANE ONCE PRN PRN Reason: Consult order Sodium Chloride (0.9 % Sodium Chloride Flush 3 Ml Syringe) 3 ml IVFLUSH QSHIFT [facility] Last Admin: 10/13/21 07:48 Dose: 3 ml Documented by: SHIVA Zolpidem Tartrate (Zolpidem Tartrate 5 Mg Tablet) 10 mg PO BEDTIME PRN PRN Reason: sleep Last Admin: 10/12/21 21:07 Dose: 10 mg Documented by: ANAIS Labs CBC & Chem 7: 10/12/21 07:41 10/13/21 06:26 Labs: Laboratory Results - last 24 hr 10/13/21 10/13/21 06:26 06:26 Anion Gap 16 Estim Creat Clear Calc 102.1 Estimated GFR > 60 Random Glucose 84 Calcium 9.3 B-Natriuretic Peptide 268 H Assessment and Plan (1) Transaminitis: Status: Acute (2) CHF (congestive heart failure): Status: Acute (3) New onset atrial flutter: Status: Acute Assessment and Plan: 60-year-old gentleman with past medical history of hypertension, VSD, GERD presented to [facility] due to symptoms of shortness of breath of 1 week duration, in last few days shortness of breath is accompanied with mild chest pain patient also noted abdominal distension of 2-3 weeks duration patient in the ER noted to be in atrial flutter with rapid ventricular rate initially treated with IV adenosine 6 mg followed by 12 mg due to concern for SVT once the heart rate slowed down noted to be in atrial flutter. New onset atrial flutter/atrial fibrillation Patient underwent cardioversion converted to normal sinus rhythm will increase dose of Coreg to 12.5 b.i.d. due to persistent elevated blood pressure, continue Coreg and Eliquis echo showed EF 60-65%, membranous VSD history of hypertension/VSD and alcohol abuse likely contributed Acute CHF due to atrial fibrillation new onset , likely due to arrhythmia, bnp dropped from 353 t0 233 today 268 on iv Lasix 20 mg b.i.d., will transition to by mouth Lasix. Replete potassium follow bmp and BNP,daily wt /i/os, Elevated LFTs and Abdominal distension Elevated LFTs likely due to alcohol and fatty liver, seen by Gastroenterology the recommend outpatient workup Abdominal distension likely due to ascites from heart failure. CT abdomen and pelvis showed small amount of ascites around the liver, periportal region, pancreas and in bilateral lower quadrants, normal size gallbladder question mild gallbladder wall thickening versus pericholecystic fluid small periportal and peripancreatic lymph nodes. LFT stable since last couple years Alcohol abuse Patient drinks few beers and couple glasses of wine after dinner daily, last intake 1 week ago , denies withdrawal symptoms, CIWA 0, follow care team input History of hypertension Uncontrolled blood pressure, Continue Coreg dose increased to 12.5 mg b.i.d. , continue losartan follow BP closely History of GERD continue PPI DVT prophylaxis On Lovenox Code status full code Quality Stroke Does the patient have a stroke diagnosis?: No VTE Prior VTE?: No VTE Risk Level:: Medical - moderate - high VTE Device Contraindication: Treatment Not Indicated VTE Drug Contraindication: N/A - Med Ordered
--- NOTE | 2021-10-13 15:10 | P.PNCA_ITS ---
Subjective Subjective Date of Service: 10/13/21 Interval history: Patient was seen examined before cardioversion. He was feeling better. His breathing was improving. Physical Exam Vital Signs: Last Vital Signs Temp 97.7 F 10/13/21 11:50 Pulse 76 10/13/21 12:54 Resp 17 10/13/21 11:50 BP 149/87 H 10/13/21 12:54 Pulse Ox 97 10/13/21 11:50 BMI result Body Mass Index 35.6 GENERAL APPEARANCE:? In no distress. NECK: no carotid bruit, no significant jugular venous distention. SKIN: no suspicious lesions, warm and dry. HEART:? Holosystolic murmurs, irregular rate and rhythm. LUNGS:? Clear to auscultation.. ABDOMEN: soft, nontender. EXTREMITIES: no edema. PERIPHERAL PULSES: equal. NEUROLOGIC: No gross deficits, AAO X 3 Objective Labs and Meds Result diagrams: 10/12/21 07:41 10/13/21 06:26 Lab results: Laboratory Results - last 24 hr 10/13/21 10/13/21 06:26 06:26 Sodium 140 Potassium 3.5 Chloride 103 Carbon Dioxide 25 Anion Gap 16 BUN 13 Creatinine 0.87 Estim Creat Clear Calc 102.1 Estimated GFR > 60 Random Glucose 84 Calcium 9.3 B-Natriuretic Peptide 268 H Progress Note: A&P Assessment and plan (1) CHF (congestive heart failure): Status: Acute (2) PAF (paroxysmal atrial fibrillation): Status: Acute Assessment and Plan: 61-year-old gentleman has background history of membranous ventricular septal defect who presented with atrial flutter initially with dyspnea. He was rate controlled but later converted to atrial fibrillation. He had congestive heart failure and dyspnea on exertion despite rate control. We decided to do FILIPE cardioversion on him. Blood pressure control is still suboptimal and we are titrating carvedilol. Post cardioversion I would change him to Lasix 20 mg once a day p.o. and stop his digoxin. We will follow along with you. Thank you for allowing me to participate in the care of your patient. Please feel free to contact me if you have any questions. Fall Risk Details Current Medications: Current Medications Acetaminophen (Acetaminophen 325 Mg Tablet) 650 mg PO Q6H PRN PRN Reason: Pain, Mild (Pain Scale 1-3) Apixaban (Apixaban 5 Mg Tablet) 5 mg PO BID [facility] Last Admin: 10/13/21 10:28 Dose: 5 mg Documented by: Carvedilol (Carvedilol 12.5 Mg Tablet) 12.5 mg PO BID [facility]; Protocol Digoxin (Digoxin 0.125 Mg Tablet) 0.125 mg PO DAILY [facility] Last Admin: 10/13/21 07:48 Dose: 0.125 mg Documented by: Furosemide (Furosemide 20 Mg/2 Ml Vial) 20 mg IVPUSH BID@0900,1800 [facility]; Protocol Last Admin: 10/13/21 07:51 Dose: 20 mg Documented by: Loperamide HCl (Loperamide Hcl 2 Mg Capsule) 2 mg PO Q4H PRN PRN Reason: Diarrhea Losartan Potassium (Losartan Potassium 50 Mg Tablet) 100 mg PO DAILY [facility]; Protocol Last Admin: 10/13/21 07:48 Dose: 100 mg Documented by: Omeprazole (Omeprazole 20 Mg Capsule.Dr) 20 mg PO DAILY@0630 [facility] Last Admin: 10/13/21 06:14 Dose: Not Given Documented by: Ondansetron HCl (Ondansetron Hcl 4 Mg/2 Ml Vial) 4 mg IVPUSH Q8H PRN PRN Reason: Nausea and Vomiting Pharmacy Consult (Consult Rx Perform Med Rec) 1 each MISCELLANE ONCE PRN PRN Reason: Consult order Sodium Chloride (0.9 % Sodium Chloride Flush 3 Ml Syringe) 3 ml IVFLUSH QSHIFT [facility] Last Admin: 10/13/21 07:48 Dose: 3 ml Documented by: Zolpidem Tartrate (Zolpidem Tartrate 5 Mg Tablet) 10 mg PO BEDTIME PRN PRN Reason: sleep Last Admin: 10/12/21 21:07 Dose: 10 mg Documented by: Time Spent With Patient Time: Total time spent is greater than 50% in coordination of care (as documente d) at patient's floor/unit and/or counseling patient: Time with patient: 15 - 24 minutes Progress Note: Quality Stroke Does the patient have a stroke diagnosis?: No Procedures Date of Service Date of Service: 10/13/21
[2021-10-13] MEDS: Potassium Chloride ER 20 MEQ TAB.ER.PRT 40 MEQ PO (15:12)
[2021-10-13] MEDS: Omeprazole 20 MG CAPSULE.DR PO (16:32)
--- NOTE | 2021-10-13 19:17 | MHC.RECOVSUP ---
? Reason for consult: Recovery Coaching o ? ? ?Current location: ?[facility] o ? ? ?Identified substance use concern: ?Alcohol Support ? ?Intervention: o Community resources provided o Harm reduction discussion ? Additional information:?I was able to connect with patient and review community resources for recovery pathways. Client was receptive and took the resources that was given to him. Care team was notified,
[2021-10-13] MEDS: carvediloL 12.5 MG TABLET PO (20:32)
[2021-10-13] MEDS: Zolpidem Tartrate 5 MG TABLET 10 MG PO (21:04)
[2021-10-14] MEDS: Omeprazole 20 MG CAPSULE.DR PO (06:16)
[2021-10-14 06:50] LABS: B Type Natriuretic Peptide 95 pg/mL (<100)
[2021-10-14 07:04] LABS: Anion Gap 14 (12-20); Blood Urea Nitrogen 15 mg/dL (9-16); Calcium 9.3 mg/dL (8.4-10.2); Carbon Dioxide 24 mmol/L (22-29); Chloride 104 mmol/L (96-108); Creatinine Clr Calc Pharmacy 97.6; Estimated Glomerular Filt Rate > 60; Glucose Random 150 mg/dL (60-115); Potassium 3.4 mmol/L (3.3-5.1); Sodium 139 mmol/L (135-145)
[2021-10-14 07:09] VITALS: BP 148/88; PULSE 76; RESP 19; TEMP 36.1; O2SAT 97
--- NOTE | 2021-10-14 09:19 | P.CDIC_ITS ---
CDI Concurrent Query Documentation Clarification: PHYSICIAN'S DOCUMENTATION REQUEST Date of Query: 10/14/21919 Patient Name: Sky Almendarez Admit Date: 10/11/21 Dear Doctor, A review of the medical record indicates additional documentation may be needed. Please review below and update the documentation accordingly. Clinical Indicators: Risk Factors/Clinical Indicators/Treatments Acute Congestive heart failure due to atrial fibrillation. BNP dropped from 353 to 233. IV lasix Echo performed 10/12. PN 10/13 - EF 60-65%, hypertension and alcohol likely contributing. Please provide further specificity regarding the most likely type and acuity of CHF you are evaluating, treating, or monitoring. Examples include: Type: * Systolic * Diastolic * Combined Systolic/Diastolic * Other ? please specify * Unable to determine Acuity: * Acute * Chronic * Acute on chronic * Unable to determine Use of terms such as suspected, likely, concern for, or probable (associated with a specific diagnosis that is being evaluated, monitored, or treated as if it exists) are acceptable and can be coded in the inpatient setting, when documented at the time of discharge. Thank you, Shaina Waters [facility], CDIS Extension: [phone] Please use your independent medical judgment in providing your response. THIS QUERY IS PART OF THE PERMANENT MEDICAL RECORD Provider Response: Other Other Diagnosis: Acute congestive heart failure with preserved EF /arrhythmia
[2021-10-14 09:40] VITALS: BP 148/88; PULSE 76
[2021-10-14] MEDS: Apixaban 5 MG TABLET PO (09:40)
[2021-10-14] MEDS: Potassium Chloride ER 20 MEQ TAB.ER.PRT PO (09:40)
[2021-10-14] MEDS: Furosemide 20 MG TABLET PO (09:40)
[2021-10-14] MEDS: 0.9 % Sodium Chloride Flush 3 ML SYRINGE IVFLUSH (09:40)
[2021-10-14] MEDS: carvediloL 12.5 MG TABLET PO (09:40)
[2021-10-14] MEDS: Losartan Potassium 50 MG TABLET 100 MG PO (09:40)
--- NOTE | 2021-10-14 10:05 | MHC.CM.PN ---
pt dc d today no skilled services ordered by
--- NOTE | 2021-10-14 10:40 | PM.PNCARD ---
Subjective Subjective Date of Service: 10/14/21 Interval history: Feeling good. No more Afib or flutter Physical Exam Vital Signs: Last Vital Signs Temp 97 F 10/14/21 07:09 Pulse 76 10/14/21 09:40 Resp 19 10/14/21 07:09 BP 148/88 H 10/14/21 09:40 Pulse Ox 97 10/14/21 07:09 BMI result Body Mass Index 35.6 GENERAL APPEARANCE:? In no distress. NECK: no carotid bruit, no significant jugular venous distention. SKIN: no suspicious lesions, warm and dry. HEART:? Holosystolic murmurs left sternal border, regular rate and rhythm. LUNGS:? Clear to auscultation.. ABDOMEN: soft, nontender. EXTREMITIES: no edema. PERIPHERAL PULSES: equal. NEUROLOGIC: No gross deficits, AAO X 3 Objective Labs and Meds Result diagrams: 10/12/21 07:41 10/14/21 05:54 Lab results: Laboratory Results - last 24 hr 10/14/21 10/14/21 05:54 05:54 Sodium 139 Potassium 3.4 Chloride 104 Carbon Dioxide 24 Anion Gap 14 BUN 15 Creatinine 0.91 Estim Creat Clear Calc 97.6 Estimated GFR > 60 Random Glucose 150 H D Calcium 9.3 B-Natriuretic Peptide 95 Progress Note: A&P Assessment and plan (1) PAF (paroxysmal atrial fibrillation): Status: Acute (2) New onset atrial flutter: Status: Acute (3) CHF (congestive heart failure): Status: Acute (4) Essential hypertension: Status: Acute Assessment and Plan: 61-year-old gentleman has background history of membranous ventricular septal defect who presented with atrial flutter initially with dyspnea.? He was rate controlled but later converted to atrial fibrillation.? He had congestive heart failure and dyspnea on exertion despite rate control.? We decided to do FILIPE cardioversion on him.? Back in sinus rhythm. Eliquis 5 mg BID intermediate. Abstinence from Alcohol. Stopped the digoxin. Lasix 20 mg PO daily. f/u with Dr Tellez. Thank you for allowing me to participate in the care of your patient.? Please feel free to contact me if you have any questions. Fall Risk Details Current Medications: Current Medications Acetaminophen (Acetaminophen 325 Mg Tablet) 650 mg PO Q6H PRN PRN Reason: Pain, Mild (Pain Scale 1-3) Apixaban (Apixaban 5 Mg Tablet) 5 mg PO BID [facility] Last Admin: 10/14/21 09:40 Dose: 5 mg Documented by: Carvedilol (Carvedilol 12.5 Mg Tablet) 12.5 mg PO BID [facility]; Protocol Last Admin: 10/14/21 09:40 Dose: 12.5 mg Documented by: Furosemide (Furosemide 20 Mg Tablet) 20 mg PO DAILY [facility]; Protocol Last Admin: 10/14/21 09:40 Dose: 20 mg Documented by: Loperamide HCl (Loperamide Hcl 2 Mg Capsule) 2 mg PO Q4H PRN PRN Reason: Diarrhea Losartan Potassium (Losartan Potassium 50 Mg Tablet) 100 mg PO DAILY [facility]; Protocol Last Admin: 10/14/21 09:40 Dose: 100 mg Documented by: Omeprazole (Omeprazole 20 Mg Capsule.Dr) 20 mg PO DAILY@0630 [facility] Last Admin: 10/14/21 06:16 Dose: 20 mg Documented by: Ondansetron HCl (Ondansetron Hcl 4 Mg/2 Ml Vial) 4 mg IVPUSH Q8H PRN PRN Reason: Nausea and Vomiting Pharmacy Consult (Consult Rx Perform Med Rec) 1 each MISCELLANE ONCE PRN PRN Reason: Consult order Sodium Chloride (0.9 % Sodium Chloride Flush 3 Ml Syringe) 3 ml IVFLUSH [facility] Last Admin: 10/14/21 09:40 Dose: 3 ml Documented by: Zolpidem Tartrate (Zolpidem Tartrate 5 Mg Tablet) 10 mg PO BEDTIME PRN PRN Reason: sleep Last Admin: 10/13/21 21:04 Dose: 10 mg Documented by: Time Spent With Patient Time: Total time spent is greater than 50% in coordination of care (as documented) at patient's floor/unit and/or counseling patient: Time with patient: 15 - 24 minutes Progress Note: Quality Stroke Does the patient have a stroke diagnosis?: No Procedures Date of Service Date of Service: 10/14/21
--- NOTE | 2021-10-14 12:19 | PM.DS ---
DS: Providers Provider Date of Service: 10/14/21 Date of admission: 10/11/21 16:06 Primary care physician: Chris Kennedy MD Consults: 10/11/21 16:54 Consult to Cardiology Routine Consulting Provider: Jose R Kelley Reason for consultation: atrial flutter Has provider been notified: No 10/12/21 12:37 Consult to Gastroenterology Routine Consulting Provider: Chriss Morley Reason for consultation: ascites/elevated lfts Has provider been notified: No 10/13/21 10:19 Consult to Care Team Routine Comment: Reason for consultation: etoh DS: Diagnosis Discharge Diagnosis (1) PAF (paroxysmal atrial fibrillation): Status: Acute (2) New onset atrial flutter: Status: Acute (3) CHF (congestive heart failure): Status: Acute (4) Essential hypertension: Status: Acute DS: Summary Hospital Course Hospital Course: Chief Complaint: Shortness of breath 60-year-old with past medical history of hypertension, VSD being followed by anatomic pathology assistant Dr. Tellez presented to [facility] due to intermittent episodes of shortness of breath worse with exertion x1 week now for last couple days noticed to have mild chest tightness along with shortness of breath without associated diaphoresis, cough, no fevers, no chills, no radiation to neck, jaw or extremities, patient denies prior history of angina coronary artery disease, patient also complains of decreased appetite, and noted abdominal distension for last 2-3 weeks, he has chronic issues with diarrhea therefore takes as needed Imodium he gets colonoscopies every 5 years due to history of colon polyps, he has gained 6 lb weight in last 1 month, he denies family history of colon cancer, in the emergency room patient noted to be in SVT therefore treated with adenosine 6 mg IV, with no affect, received 2nd dose of adenosine 12 mg IV patient developed atrial flutter but heart rate remains in 160s therefore treated with 1 dose of diltiazem 20 mg and Lovenox 100 mg subcutaneously, workup showed normal troponin, TSH 1.68, D-dimer 254, BNP 353, mildly elevated LFTs, WBC 12,100, patient ventricular rate remains in 160s therefore received 2nd dose of IV diltiazem 50 mg and now being admitted to intermediate care unit unit for new onset atrial fibrillation, mild chest tightness, abdominal distension and elevated LFTs. Hospital course 60-year-old gentleman with past medical history of hypertension, VSD, GERD presented to [facility] due to symptoms of shortness of breath of 1 week duration, in last few days shortness of breath is accompanied with mild chest pain patient also noted abdominal distension of 2-3 weeks duration patient in the ER noted to be in atrial flutter with rapid ventricular rate initially treated with IV adenosine 6 mg followed by 12 mg due to concern for SVT once the heart rate slowed down noted to be in atrial flutter. New onset atrial flutter/atrial fibrillation patient treated with IV Cardizem drip and digoxin ventricular rate improved since patient noted to be in congestive heart failure despite stable ventricular rhythm he underwent cardioversion and converted to normal sinus rhythm,iv Cardizem discontinued, patient home dose of Coreg was increased to 12.5 mg b.i.d. patient remains in normal sinus rhythm and clinically stable with no shortness of breath or chest tightness,echo showed EF 60-65%, diastolic dysfunction was indeterminate, membranous VSD, since patient is clinically stable he is being discharged home on Coreg 12.5 mg b.i.d. and Eliquis 5 mg b.i.d. and recommended close outpatient cardiology follow up. Acute CHF with preserved EF/ atrial fibrillation, echo showed preserved EF patient treated with IV Lasix BNP improved to 268, electrolyte remains stable patient is being discharged home on Lasix 20 mg by mouth daily Elevated LFTs and Abdominal distension likely due to alcohol and fatty liver, seen by Gastroenterology they recommend outpatient workup LFT stable since last couple years. Alcohol abuse seen by care team and strongly recommend to abstain from alcohol since contributing to heart failure and liver disease History of hypertension continue Coreg dose increased,continue Avapro/hydrochlorothiazide. History of GERD continue PPI Time Spent with Patient Time attestation: Total time spent providing and/or coordinating discharge services: Discharge coordination time: Greater than 30 minutes Quality: Stroke Does the patient have a stroke diagnosis?: No Physical Exam Vital Signs: Vital Signs: Last Vital Signs Temp 97 F 10/14/21 07:09 Pulse 76 10/14/21 09:40 Resp 19 10/14/21 07:09 BP 148/88 H 10/14/21 09:40 Pulse Ox 97 10/14/21 07:09 BMI result Body Mass Index 35.6 General awake , alert x3, no acute distress.? Neck supple, no JVD. CVS regular rate rhythm, Respiratory lungs clear to auscultation, no crackles, no respiratory distress, no wheeze, no rhonchi. Gastrointestinal abdomen less distended, nontender, bowel sounds audible, no guarding , no rigidity. Extremities trace edema. Neuro non focal Skin no rash Psych appropriate affect DS: Data Data Completed and Pending Labs on day of discharge: Laboratory Results - last 24 hr 10/14/21 10/14/21 05:54 05:54 Sodium 139 Potassium 3.4 Chloride 104 Carbon Dioxide 24 Anion Gap 14 BUN 15 Creatinine 0.91 Estim Creat Clear Calc 97.6 Estimated GFR > 60 Random Glucose 150 H D Calcium 9.3 B-Natriuretic Peptide 95 Discharge Plan Discharge Patient Disposition: Home, Self-Care Discharge Diagnosis: New onset atrial fibrillation Acute congestive heart failure Transaminitis Referrals: Chris Kennedy MD [Primary Care Provider] - 1 Week Discharge Medications: New carvedilol 12.5 mg Tablet 12.5 mg PO BID Qty: 60 RF: 0 furosemide 20 mg Tablet 20 mg PO DAILY Qty: 30 RF: 0 Eliquis 5 mg Tablet 5 mg PO BID Qty: 60 RF: 0 Continued lansoprazole 15 mg capsule,delayed release(DR/EC) 15 mg PO DAILY Qty: 90 RF: 8 irbesartan-hydrochlorothiazide 300-12.5 mg tablet 1 tab PO DAILY Qty: 30 RF: 2 zolpidem 10 mg tablet 10 mg PO BEDTIME PRN (Reason: sleep) Qty: 90 RF: 5 loperamide 2 mg Tablet 2 mg PO Q4H PRN (Reason: Diarrhea) RF: 0 Discontinued carvedilol 3.125 mg tablet 3.125 mg PO BID Qty: 180 RF: 4 Discharge Orders: Discharge Order (Routine); Ordered 10/14/21 Ordered By: Juan Hopkins Diet: low salt diet Activity on Discharge: As tolerated Stand Alone Forms: Patient Portal Discharge page Care Plan Goals: Return to check with any worsening shortness of breath, chest pain or palpitation. Health Concerns: New onset atrial fibrillation, now in normal sinus rhythm after cardioversion, continue Coreg, Eliquis and Lasix as prescribed Follow low-calorie diet exercise as tolerated Take all other medications as before Plan of Treatment: Outpatient follow-up with primary care physician in 1 week call anatomic pathology assistant to make an appointment in next 1-2 weeks, follow-up appointment with gastroenterology in December Assessment: As above Discharge Date/Time: 10/14/21 11:55
--- NOTE | 2021-10-14 15:43 | HO.POSTANES ---
Post Anesthesia Evaluation Post Anesthesia Evaluation Vital Signs: Vital Signs Temp Pulse Resp BP Pulse Ox 10/14/21 09:40 76 148/88 H 10/14/21 07:09 97 F 76 19 148/88 H 97 Anesthesia: Monitored Mental Status: Awake Pain Control: Satisfactory Nausea/Vomiting: None Hydration: Adequate Anesthesia-Related Issues: No Anes. Related Issues
== END 2021-10-14 11:55 | disposition home or self-care (01) | DRG 201 ==
LOC: HO.ED 14:38 → HO.EDOVER 16:13 → HO.IMC 10-12 06:12
PROVIDERS: Internal Medicine Cardiovascular Disease; Admitting Provider Hospitalist; Emergency Provider Emergency Medicine Emergency Medical Services; PCP Internal Medicine; Visit Provider Hospitalist
PROC: 5A2204Z Restoration of Cardiac Rhythm, Single (ICD-10-PCS; principal; 2021-10-13 10:30)
DX: I48.0 Paroxysmal atrial fibrillation (principal); I50.31 Acute diastolic (congestive) heart failure; K70.0 Alcoholic fatty liver; R18.8 Other ascites; I11.0 Hypertensive heart disease with heart failure; K21.9 Gastro-esophageal reflux disease without esophagitis; F10.10 Alcohol abuse, uncomplicated; Q21.0 Ventricular septal defect; F17.290 Nicotine dependence, other tobacco product, uncomplicated; Z71.6 Tobacco abuse counseling; Z20.822 Contact with and (suspected) exposure to COVID-19; Z79.01 Long term (current) use of anticoagulants; Z79.899 Other long term (current) drug therapy
CPT/HCPCS: 36415; 71045; 71275; 74177; 80048; 80053; 83690; 83880; 84484; 85025; 85027; 85379; 85610; 85730; 87635; 92960; 93005; 93306; 93312; 99285; J0153; J1160; J1650; J1940; J2250; J3010; Q9967

== ENCOUNTER → 2021-11-17 14:38 | Outpatient (BNVA) | payer OTHER, SELFPAY | PROVIDERS: PCP Internal Medicine; Referring Provider Internal Medicine; Visit Provider Internal Medicine | DX: Q21.0 Ventricular septal defect (principal); I48.0 Paroxysmal atrial fibrillation; I10 Essential (primary) hypertension | CPT/HCPCS: 93005 ==

== ENCOUNTER 2022-07-25 11:04 | Outpatient (REF) | payer OTHER, SELFPAY ==
[2022-07-25 14:26] LABS: Alanine Aminotransferase 71 U/L (0-40); Albumin Level 4.5 g/dL (3.5-5.0); Alkaline Phosphatase 58 U/L (39-117); Aspartate Amino Transferase 53 U/L (5-37); Bilirubin Direct 0.4 mg/dL (0.0-0.5); Bilirubin Total 0.8 mg/dL (0.0-1.0); Total Protein 7.1 g/dL (6.5-8.0)
== END 2022-07-25 11:05 | disposition home or self-care (01) ==
LOC: HO.10HDL 11:04
PROVIDERS: Visit Provider Internal Medicine
DX: R79.89 Other specified abnormal findings of blood chemistry (principal)
CPT/HCPCS: 36415; 80076

== ENCOUNTER 2022-09-22 07:55 | Day surgery (SDC) | payer OTHER, SELFPAY ==
--- NOTE | 2022-09-21 11:18 | HO.ANESPROP2 ---
Documented by User: Radha Mitchell NP 09/21/22 11:20 HPI - Anesthesia Eval Consult details Narrative: 61yo M for Colonoscopy Eliquis for afib PMFSH Active Problems Active Problems: All Active Problems (Updated 07/25/22 @ 13:47 by Chris Kennedy MD) Hip arthritis (Acute) Obesity (Acute) Atrial fibrillation (Acute) Physical exam (Acute) Physical exam, annual (Acute) Past Medical History Medical History Atrial fibrillation Chronic GERD Essential hypertension Hypertension Insomnia Obesity Obesity Transaminitis VSD (ventricular septal defect) Family History Family History Father No problems noted. Mother No problems noted. Brother Heart attack Family/Other Vascular disease Surgical History Surgical History History of appendectomy History of rectal polypectomy History of surgery on extremity History of Problems with Anesthesia: No Social History Social History Household Members: Spouse Housing: House Do you presently have visiting nurse or other home services: No Alcohol intake: current Alcohol intake frequency: does not drink Alcohol type: beer and wine Patient Tobacco Use Status: Current everyday Tobacco user Tobacco use type: Cigar e-Cigarette/Vaping Use: Never Used Second Hand Smoke Exposure: No Are you DNR?: No Advance Directives: No Advance Directives Information Provided: Yes Nutrition Risks: No Nutritional Risk service: No Current occupational status: employed Cognitive needs: No Hearing needs: No Vision needs: No Meds Allergies Allergy/AdvReac Type Severity Reaction Status Date / Time amlodipine AdvReac Unknown Leg Verified 07/25/22 13:34 swelling Exam Exam Date and Time: September 21, 2022 1118 Narrative Narrative: FILIPE 10/2021 Conclusions: - Normal left ventricular size and systolic function.? - There is no evidence of a thrombus in the left atrial? appendage.? There is no evidence of thrombus or mass in the left atrium.? ECHO 10/2021 Conclusions: - Normal left ventricular size, thickness, systolic function, and wall motion. The visually estimated ejection fraction is between 65-70%.? - There is evidence of a small membranous ventricular septal ? ? defect.? Qp/Qs= 1.2? - Normal right ventricular cavity size.? There is borderline ? ? right ventricular systolic function. ? - The left atrium is likely dilated. ? - There is mild aortic valve regurgitation.? - Moderately elevated right atrial pressure.? Moderate pulmonary hypertension is present. ? ? Assessment and Plan Assessment Anesthesia Assessment: Chart Reviewed Final Anesthetic Review History of Problems with Anesthesia: No Documented by User: Greg Liriano MD 09/22/22 09:01 [facility] Past Medical History Medical History Atrial fibrillation Chronic GERD Essential hypertension Hypertension Insomnia Obesity Obesity Transaminitis VSD (ventricular septal defect) Family History Family History Father No problems noted. Mother No problems noted. Brother Heart attack Family/Other Vascular disease Surgical History Surgical History History of appendectomy History of rectal polypectomy History of surgery on extremity Social History Social History Household Members: Spouse Housing: House Do you presently have visiting nurse or other home services: No Alcohol intake: current Alcohol intake frequency: does not drink Alcohol type: beer and wine Patient Tobacco Use Status: Current everyday Tobacco user Tobacco use type: Cigar e-Cigarette/Vaping Use: Never Used Second Hand Smoke Exposure: No Are you DNR?: No Advance Directives: No Advance Directives Information Provided: Yes Nutrition Risks: No Nutritional Risk service: No Current occupational status: employed Cognitive needs: No Hearing needs: No Vision needs: No Meds Allergies Allergy/AdvReac Type Severity Reaction Status Date / Time amlodipine AdvReac Unknown Leg Verified 07/25/22 13:34 swelling Exam Airway Mallampati Class: III TM Dist: >3cm Neck ROM: Full Loose/Missing/Broken Teeth: No Heart: irregular irreg s1s2 Lungs: cta b/l Assessment and Plan Assessment Anesthesia Assessment: Anesthesia Plan Discussed Final Anesthetic Review NPO: Yes ASA Class: III Final Preanesthetic Review: No Changes in Pt Med Stat, Meds/Allgs Chart Reviewed, Consent Obtained/Reviewed and Anes Risks/Benef Reviewed Patient Risk: Intermediate Procedure Risk: Intermediate Assessment/Block/Sedation in SS: Assess/Block/Sedation-SS Anesthetic Plan Anesthetic Plan: MAC: and Agree w/ Assess. and Plan Disposition: Standard PACU
[2022-09-22 06:16] VITALS: BMI 34.4
[2022-09-22 08:00] VITALS: BP 187/101; PULSE 106; RESP 18; TEMP 36.6; O2SAT 98
[2022-09-22 08:19] VITALS: BP 148/101
[2022-09-22] MEDS: Lactated Ringers 1,000 ML 100 ML IVCONT (08:29)
[2022-09-22 09:43] VITALS: BP 100/67; PULSE 114; RESP 16; TEMP 36.7; O2SAT 96
--- NOTE | 2022-09-22 09:50 | PM.OP ---
Brief Operative Note Date of Service: 09/22/22 Pre-op diagnosis: Screening Post-op diagnosis: other (Polyps) Procedure: Colonoscopy to the cecum and TI with bx/removal of polyps x 2, cold snare polypectomy x 1, and placement of Resolution clips x 3 Surgeon: Chriss Morley Anesthesia: MAC Was an Business Office Assistant used for this Procedure?: No Estimated blood loss (mL): 2.0 Pathology: other (A. Polyps at 15cm B. Polyp at 30cm) Condition: stable Disposition: PACU
[2022-09-22 09:56] VITALS: BP 125/82; PULSE 95; RESP 18; O2SAT 98
[2022-09-22 10:08] VITALS: BP 150/83; PULSE 103; RESP 18; TEMP 37; O2SAT 99
--- NOTE | 2022-09-22 11:10 | OP_ITS ---
SURGEON: Chriss Morley MD INDICATIONS: The patient presents for followup of colorectal cancer screening and personal history of tubular adenoma of the colon. Full consent has been obtained from him for this, including risks of bleeding and perforation. PREOPERATIVE DIAGNOSIS: Colorectal cancer screening and personal history of tubular adenoma of the colon. POSTOPERATIVE DIAGNOSIS: PROCEDURE PERFORMED: Colonoscopy to the cecum and terminal ileum with biopsy and removal of polyps, cold snare polypectomy, and placement of resolution clips x 3. ESTIMATED BLOOD LOSS: COMPLICATIONS: ANESTHESIA: Monitored anesthesia care. ASSISTANTS: SPECIMENS: POSTOPERATIVE DIAGNOSES: Colorectal cancer screening and personal history of tubular adenoma of the colon, colon polyps, diverticulosis, and internal hemorrhoids. DESCRIPTION OF PROCEDURE: The patient was placed in the left lateral decubitus position. The digital rectal exam revealed no abnormalities. The Olympus video pediatric colonoscope was entered into the rectum and advanced easily to the cecum. Once in the cecum, I did identify normal-appearing cecal pouch with appendiceal orifice and a normal-appearing ileocecal valve. The terminal ileum was cannulated and appeared normal. The scope was withdrawn back in the colon. The entire cecum and ileocecal valve appeared normal. The scope was then slowly withdrawn assessing all mucosal surfaces carefully. Preparation was excellent. At 30 cm was an approximately 5 mm polyp, which was removed by cold snare polypectomy and recovered by suction. The polypectomy site appeared clean, without any sign of residual polyp nor bleeding. A single resolution clip was applied with good deployment and good hemostasis due to the fact that he has to go back on his Eliquis. At 15 cm, were 2 polyps, each approximately 3 mm in diameter. These were each biopsied and completely removed with a cold biopsy forceps. A resolution clip was applied to each polypectomy site with good deployment and good hemostasis. I did not visualize any other polyps, colitis, or angiodysplasia. There was a mild amount of sigmoid diverticulosis. In the rectum, the scope was retroflexed visualizing internal hemorrhoids, but no other pathology. The rectal mucosa appeared normal. The scope was straightened and withdrawn from the patient. He tolerated the procedure well and was returned to the recovery area in stable condition. IMPRESSION: 1. Colon polyps. 2. Diverticulosis. 3. Internal hemorrhoids. PLAN: The results of the biopsies will be checked. I would recommend a repeat colonoscopy in 5 years. He was advised to resume his Eliquis in 24 hours. He was advised to see me in 6 months for followup of his elevated LFTs, which is felt to be related to his fatty liver. He was advised to watch his diet and try to avoid alcohol. This has been discussed with his . He was advised not to use any aspirin or NSAIDs while he is on Eliquis. MD GRZEGORZ Rios/BIJU / [id number] MTDDolly
== END 2022-09-22 10:30 | disposition home or self-care (01) ==
PROVIDERS: PCP Internal Medicine; Visit Provider Internal Medicine
PROC: 0DJD8ZZ Inspection of Lower Intestinal Tract, Via Natural or Artificial Opening Endoscopic (ICD-10-PCS; CPT 45378; principal; 2022-09-22 09:00)
DX: Z12.11 Encounter for screening for malignant neoplasm of colon (principal); Z86.010 Personal history of colon polyps; K63.5 Polyp of colon; K57.30 Diverticulosis of large intestine without perforation or abscess without bleeding; K64.8 Other hemorrhoids; R79.89 Other specified abnormal findings of blood chemistry; K76.0 Fatty (change of) liver, not elsewhere classified; K21.9 Gastro-esophageal reflux disease without esophagitis; I48.91 Unspecified atrial fibrillation; I10 Essential (primary) hypertension; G47.30 Sleep apnea, unspecified; Z79.01 Long term (current) use of anticoagulants; Z79.899 Other long term (current) drug therapy; Z99.89 Dependence on other enabling machines and devices; F17.290 Nicotine dependence, other tobacco product, uncomplicated
CPT/HCPCS: 45385; 45380; 88305; J0330

== ENCOUNTER 2023-03-29 09:03 | Outpatient (REF) | payer OTHER, SELFPAY ==
--- NOTE | ~2023-03-29 | US_ITS ---
EXAMINATION: US COMPLETE ABDOMEN WITH LIVER ELASTOGRAPHY CLINICAL INFORMATION: Elevated liver function test. . COMPARISON: None available. TECHNIQUE: Real-time imaging of the abdominal viscera. Noninvasive ultrasound liver fibrosis assessment is performed using May ElastPQ point quantification shear wave elastography (2D-SWE) with a C5-2 MHz transducer. Multiple elastography samples are obtained. FINDINGS: PANCREAS: Normal. The visualized pancreatic head and body are normal in appearance. The remainder of the pancreas is obscured from visualization by the overlying bowel gas. ABDOMINAL AORTA: The proximal, middle, and distal aortic segments are normal in caliber. INFERIOR VENA CAVA: Visualized portions are normal. LIVER: The liver demonstrates normal size, contour and diffuse increased echogenicity. No focal lesion or intrahepatic biliary duct dilatation. The right lobe measures 14.7 cm in length. The left lobe measures 12.8 cm in length. Portal flow is hepatopedal. Shear wave liver elastography median stiffness is 2.13 m/s (reference: normal median stiffness is 1.3 m/s or less). IQR/median stiffness to assess sampling precision is 0.08 (reference: good quality data set is IQR/median stiffness of 0.15 or less). GALLBLADDER: Normal. The gallbladder is physiologically distended without evidence of stones, sludge, polyps, wall thickening or pericholecystic fluid. COMMON BILE DUCT: Normal in caliber measuring 0.5 cm in diameter. RIGHT KIDNEY: There is a lobulated renal contour. No hydronephrosis. No renal calculi or focal parenchymal lesions. The kidney measures 14.1 cm in maximum dimension. LEFT KIDNEY: There is a lobulated renal contour. No hydronephrosis. No renal calculi or focal parenchymal lesions. The kidney measures 12.8 cm in maximum dimension. SPLEEN: Normal. The spleen measures 10.5 cm in maximum dimension. FREE FLUID: None. US/US abdomen comp w elastography IMPRESSION: 1. Diffuse increased liver echogenicity. No focal lesion seen. Lobulated renal contour without any echogenic stones or hydronephrosis. 2. Liver elastography: Median liver stiffness measures 2.13 corresponding to cACLD ruled in. REFERENCE: Society of Radiologists in Ultrasound Liver Stiffness Thresholds (2019): LIVER STIFFNESS THRESHOLDS: *Liver Stiffness equal or less than 1.3 m/s: High probability of being normal. *Liver Stiffness less than 1.7 m/s: In the absence of other known clinical signs, rules out compensated advanced chronic liver disease. *Liver Stiffness 1.7-2.1 m/s: Suggestive of compensated advanced chronic liver disease but need further test for confirmation. *Liver Stiffness over 2.1 m/s: Rules in compensated advanced chronic liver disease. *Liver Stiffness over 2.4 m/s: Suggestive of clinically significant portal hypertension. QUALITY OF DATA SET: *IQR/Median value equal or less than 0.15 implies a quality data set. *IQR/Median value over 0.15 implies a poor quality data set. SIGNIFICANT CHANGE FROM PRIOR EXAM: Significant change if liver stiffness measurement is 10% or greater from prior exam. OTHER CONSIDERATIONS: The stage of liver fibrosis may be overestimated in the setting of acute hepatitis, liver inflammation, elevated liver function tests, hepatic vascular congestion, obstructive cholestasis, non-fasting state, and infiltrative diseases such as amyloidosis and lymphoma. In some patients with NAFLD, the liver stiffness thresholds for compensated advanced chronic liver disease may be lower. In causes other than viral hepatitis and NAFLD, liver stiffness thresholds are not well established.
== END 2023-03-29 09:04 | disposition home or self-care (01) ==
LOC: HO.US 09:03
PROVIDERS: PCP Internal Medicine; Visit Provider Internal Medicine
DX: R79.89 Other specified abnormal findings of blood chemistry (principal); K76.0 Fatty (change of) liver, not elsewhere classified
CPT/HCPCS: 76705; 76981

== ENCOUNTER 2023-03-29 09:58 | Outpatient (REF) | payer OTHER, SELFPAY ==
[2023-03-29 10:18] LABS: MANUAL DIFF FLAG NO
[2023-03-29 10:24] LABS: Basophils Absolute Auto 0.1 X10*3/uL (0.0-0.2); Basophils Percent Auto 0.9 % (0-2); Eosinophils Absolute Auto 0.2 X10*3/uL (0.0-0.4); Eosinophils Percent Auto 2.3 % (0-4); Hematocrit 49.2 % (42.0-52.0); Hemoglobin 16.9 g/dl (14.0-18.0); Imm Gran Abs Auto 0.02 X10*3/uL (0.00-0.03); Imm Gran Pct Auto 0.2 % (0.0-0.4); Lymphocytes Absolute Auto 2.2 X10*3/uL (1.2-4.9); Lymphocytes Percent Auto 23.9 % (20-40); Mean Corpuscular HGB Conc 34.3 g/dl (31.0-36.0); Mean Corpuscular Volume 101.9 fL (80.0-98.0); Mean Platelet Volume 10.7 fL (9.4-12.4); Monocytes Percent Auto 10.2 % (2-11); Neutrophils Absolute Auto 5.8 x10*3/uL (2.0-8.3); Neutrophils Percent Auto 62.5 % (45-73); Platelet Count 194 X10*3/uL (160-400); Red Blood Count 4.83 X10*6/uL (4.60-5.80); Red Cell Distribution Width 13.2 % (11.0-16.0); White Blood Count 9.3 X10*3/uL (4.8-10.8)
[2023-03-29 10:34] LABS: INTERNATIONAL NORM RATIO 1.4 (0.9-1.1); Prothrombin Time 15.8 SEC (10.0-13.1)
[2023-03-29 10:47] LABS: Alanine Aminotransferase 48 U/L (0-40); Albumin Level 4.3 g/dL (3.5-5.0); Alkaline Phosphatase 60 U/L (39-117); Aspartate Amino Transferase 43 U/L (5-37); Bilirubin Direct 0.3 mg/dL (0.0-0.5); Bilirubin Total 0.9 mg/dL (0.0-1.0)
[2023-04-04 06:57] LABS: Alpha Fetoprotein 3.4 ng/mL (<6.1)
[2023-04-11 01:48] LABS: FIB-ALT 40 U/L (9-46); FIB-Alpha-2-Macroglobulin 303 mg/dL (106-279); FIB-Apolipoprotein A1 164 mg/dL (94-176); FIB-GGT 123 U/L (3-70); FIB-Haptoglobin 124 mg/dL (43-212); FIB-Total Bilirubin 0.6 mg/dL (0.2-1.2); Liver Fibrosis Score 0.62; Liver Fibrosis Stage F3; Nec Inflam Act Grade A1; Nec Inflam Act Score 0.31
== END 2023-03-29 09:59 | disposition home or self-care (01) ==
LOC: HO.10HDL 09:58
PROVIDERS: Visit Provider Internal Medicine
DX: R79.89 Other specified abnormal findings of blood chemistry (principal); K76.0 Fatty (change of) liver, not elsewhere classified
CPT/HCPCS: 36415; 80076; 81596; 82105; 85025; 85610

== ENCOUNTER → 2023-04-05 09:16 | Outpatient (BNVA) | payer OTHER, SELFPAY | PROVIDERS: PCP Internal Medicine; Referring Provider Internal Medicine; Visit Provider Internal Medicine | DX: I48.91 Unspecified atrial fibrillation (principal) | CPT/HCPCS: 93005 ==

== ENCOUNTER 2023-04-05 09:46 | Outpatient (REF) | payer OTHER, SELFPAY ==
[2023-04-05 11:54] LABS: Anion Gap 15 (12-20); Blood Urea Nitrogen 10 mg/dL (9-16); Calcium 9.4 mg/dL (8.4-10.2); Carbon Dioxide 23 mmol/L (22-29); Chloride 106 mmol/L (96-108); Estimated Glomerular Filt Rate > 60; Glucose Random 87 mg/dL (60-115); Potassium 4.5 mmol/L (3.3-5.1); Sodium 139 mmol/L (135-145)
== END 2023-04-05 09:47 | disposition home or self-care (01) ==
LOC: HO.10HDL 09:46
PROVIDERS: Visit Provider Internal Medicine
DX: I48.91 Unspecified atrial fibrillation (principal); I10 Essential (primary) hypertension
CPT/HCPCS: 36415; 80048

== ENCOUNTER 2024-03-12 09:32 | Outpatient (AMB) | payer OTHER, SELFPAY ==
[2024-03-12 09:33] VITALS: BP 150/92; PULSE 63; O2SAT 99; BMI 34.5
--- NOTE | 2024-03-12 09:33 | A.OFFPC_ITS ---
Vital Signs 03/12/24 09:33 Height 5 ft 7 in Weight 220 lb BMI 34.5 BP 150/92 H Blood Pressure Location Lt brachial Position Sitting Pulse 63 Pulse Source Pulse Oximeter Pulse Oximetry (%) 99 Oxygen Delivery Method Room Air Intake Visit Reasons: Overdue Annual PE Business Information Consultant Required: No Correctional Case Manager: Not Required per policy Accompanied by: Self / Same As Patient Allergies amlodipine Adverse Reaction (Unknown, Verified 03/12/24 09:33) Leg swelling Medication List - Last Reconciled 03/12/24 by Chris Kennedy MD apixaban (Eliquis) 5 mg PO BID 90 days carvedilol 12.5 mg PO BID diltiazem HCl CD 120 mg PO DAILY furosemide 20 mg PO DAILY lansoprazole 15 mg PO DAILY tadalafil 20 mg PO DAILY zolpidem 10 mg PO BEDTIME PRN Tobacco use date assessed: 03/12/24 Dental Screening Dental Screen Date: 03/12/24 Did you have a dental visit in the last 12 months?: Yes Did you have a dental problem in the last 6 months where you did not have access to dental care?: No Was dental information given to patient?: Patient has dentist HPI Overdue Annual PE HPI Details Afib ELI and HTN on rx; compliant; remains in NSR; uses CPAP every night PFSH Medical History (Updated 03/12/24 @ 10:09 by Chris Kennedy MD) Obesity Atrial fibrillation Transaminitis Chronic GERD Insomnia Obesity Essential hypertension VSD (ventricular septal defect) Hypertension Surgical History (Updated 04/05/23 @ 09:24 by Lilli Chen) History of recent dental procedure History of rectal polypectomy History of surgery on extremity History of appendectomy Family History Father No problems noted. Mother No problems noted. Brother Heart attack Family/Other Vascular disease Social History (Updated 04/05/23 @ 09:24 by Lilli Chen) Household Members: Spouse Housing: House Do you presently have visiting nurse or other home services: No Alcohol intake: current Alcohol intake frequency: does not drink Patient Tobacco Use Status: Current someday Tobacco user Tobacco use type: Cigar e-Cigarette/Vaping Use: Never Used Second Hand Smoke Exposure: No service: No Current occupational status: employed Cognitive needs: No Hearing needs: No Vision needs: Yes (glasses) Questionnaire PHQ-9 Over the last 2 weeks, how often have you been bothered by any of the following problems? 1. Little interest or pleasure in doing things: not at all 2. Feeling down, depressed, or hopeless: not at all 3. Trouble falling or staying asleep, or sleeping too much: not at all 4. Feeling tired or having little energy: not at all 5. Poor appetite or overeating: not at all 6. Feeling bad about yourself - or that you are a failure or have let yourself or your family down: not at all 7. Trouble concentrating on things, such as reading the newspaper or watching television: not at all 8. Moving or speaking so slowly that other people could have noticed. Or the opposite - being so fidgety or restless that you have been moving around a lot more than usual: not at all 9. Thoughts that you would be better off or of hurting yourself in some way: not at all Total score: 0 Depression Screening Interpretation: Negative Depression Screening Done: Yes 83409 - PHQ-9 Billing: Yes Source: Developed by Drs. Chriss Alvarado, Franci Clarke, Christiano Tsang and colleagues, with an educational emelina from [employer]. Thrive Questionnaire Date Thrive assessed: 03/12/24 I am a: Patient What is your living situation today?: I have a steady place to live Within the past 12 months, did the food you bought not last and you didn't have the money to get more?: Never true Within the past 12 months, did you worry whether your food would run out before you got money to buy more?: Never true Do you have trouble paying for medicines?: No Do you have trouble getting transportation to medical appointments?: No Do you have trouble paying your heating and electricity bill?: No Do you have trouble taking care of your child, family member or friend?: No Do you have trouble with day-to-day activities such as bathing, preparing meals, shopping, managing finances, etc.?: No Are you currently unemployed and looking for a job?: No Are you interested in more education?: No Please select the resources that you would like help with: None THRIVE Score: 0 AUDIT C Alcohol Use Questionnaire (AUDIT-C) 1. How often do you have a drink containing alcohol?: Monthly or less 2. How many drinks containing alcohol do you have on a typical day when you are drinking?: 1 or 2 3. How often do you have six or more drinks on one occasion?: Never Total Score: 1 Score Reviewed/Action Taken: Yes SINDHU-7 AMB Questionnaire SINDHU-7 Date SINDHU - 7 assessed: 03/12/24 Feeling nervous, anxious, or on edge: 0 = Not at all Not being able to stop or control worryin = Not at all Worrying too much about different things: 0 = Not at all Trouble relaxin = Not at all Being so restless that it is hard to sit still: 0 = Not at all Becoming easily annoyed or irritable: 0 = Not at all Feeling afraid as if something awful might happen: 0 = Not at all Total SINDHU-7 score (0-4 normal; 5-9 mild; 10-14 moderate; 15-21 severe): 0 Source: Developed by Drs. Chriss Alvarado, Franci Clarke, Christiano Tsang and colleagues, with an educational emelina from [facility] [employer]. SINDHU-7 Assessment Billing SINDHU-7 Assessment Tool: SINDHU-7 Assessment 73736 Review of Systems Const Denies chills, Denies fatigue, Denies headache(s) and Denies weight loss Eyes Denies change in vision, Denies diplopia and Denies eye pain ENT Denies vertigo, Denies dizziness, Denies headache(s) and Denies nasal discharge Card Denies chest pain, Denies rapid heart rate and Denies dyspnea on exertion Resp Denies chest congestion, Denies cough, Denies pain with cough and Denies dyspnea on exertion GI Denies abdominal pain, Denies hematochezia and Denies change in bowel habits Musc Denies myalgias, Denies arthralgias and Denies joint swelling Skin/Breast Denies lesions and Denies unusual bruising Neuro Denies vertigo, Denies dizziness, Denies headache(s) and Denies focal weakness Endo Denies fatigue Physical exam (Primary Care) Vital Signs: Last Vital Signs Pulse 63 03/12/24 09:33 BP 150/92 H 03/12/24 09:33 Pulse Ox 99 03/12/24 09:33 Oxygen Delivery Method Room Air 03/12/24 09:33 BMI result Body Mass Index 34.5 Tobacco/Smoking Status: Tobacco use Status Tobacco use date assessed 03/12/24 03/12/24 09:34 Patient Tobacco Use Status Current someday Tobacco 03/12/24 09:34 Tobacco use type Cigar 03/12/24 09:34 e-Cigarette/Vaping Use Never Used 03/12/24 09:34 PHQ-9: PHQ-9 Score PHQ-9: Total score 0 03/12/24 09:42 Depression Screening Interpretation: Negative Thrive Assessment: Date of Thrive Assessment Date Thrive assessed 03/12/24 03/12/24 09:34 Const General: cooperative, healthy appearing and no acute distress Orientation/consciousness: oriented to person, oriented to place and oriented to time HENMT Head: Yes normal to inspection, Yes normocephalic and Yes atraumatic Mouth: Normal oral and palatal mucosa present and tongue normal Throat: Yes posterior oropharynx normal and Yes uvula midline Eyes General: appearance normal, both eyes and all related structures Neck Neck: Yes normal visual inspection, Yes full ROM and Yes no lymphadenopathy Thyroid: Thyroid normal Carotids: normal carotid upstroke Chest Chest palpation & inspection: normal inspection of the chest Resp Effort & Inspection: normal respiratory effort and able to speak in complete sentences Auscultation: clear to auscultation bilaterally Cardio Jugular venous distension: no JVD Palpation: normal PMI Rate: regular rate Rhythm: regular rhythm Heart sounds: S1 normal heart sound present and S2 normal heart sound present GI Inspection: Yes normal to inspection Palpation (GI): Soft to palpation and No hepatosplenomegaly present Auscultation: normal bowel sounds General: Yes no CVA tenderness Back/Spine/Pelvis Back: no CVA tenderness Skin General skin exam: no rashes or lesions noted Neuro General: oriented to person, oriented to place and oriented to time Extrem General: Yes normal to inspection and Yes full ROM Assessment and Plan Assessment & Plan (1) Physical exam: Code(s): Z00.00 - Encounter for general adult medical examination without abnormal findings Plan: stable; do labs (2) Atrial fibrillation: Code(s): I48.91 - Unspecified atrial fibrillation Plan: stable; same rx (3) ELI (obstructive sleep apnea): Code(s): G47.33 - Obstructive sleep apnea (adult) (pediatric) Plan: same rx (4) Hypertension: Code(s): I10 - Essential (primary) hypertension Plan: change lasix to HCTZ Orders: Orders 2 Thyroid Stimulating Hormone Today Z13.29 - Encounter for screening for other suspected endocrine disorder Lipid Panel Today Z13.220 - Encounter for screening for lipoid disorders Complete Blood Count Auto Diff Today Z13.0 - Encounter for screening for diseases of the blood and blood-forming organs and certain disorders involving the immune mechanism Comprehensive [place]. Panel Fast Today Z13.9 - Encounter for screening, unspecified Prostate Specific Antigen Scr Today Z00.00 - Encounter for general adult medical examination without abnormal findings Medications: New hydrochlorothiazide 25 mg PO DAILY 90 tabs 8RF Discontinued furosemide Discontinued Reason: None 20 mg PO DAILY 30 tabs 2RF Coding Level of Care Code Est Pt Prev Care 40-64y(26391) Diagnoses Physical exam Z00.00 Atrial fibrillation I48.91 ELI (obstructive sleep apnea) G47.33 Hypertension I10 Additional Codes SINDHU-7 Assessment Billing - SINDHU-7 Assessment Tool: SINDHU-7 Assessment 13917 ([id number])
== END 2024-03-12 10:05 | disposition home or self-care (01) ==
PROVIDERS: PCP Internal Medicine; Visit Provider Internal Medicine
DX: Z00.00 Encounter for general adult medical examination without abnormal findings (principal); I48.91 Unspecified atrial fibrillation; G47.33 Obstructive sleep apnea (adult) (pediatric); I10 Essential (primary) hypertension
CPT/HCPCS: 99396

== ENCOUNTER 2024-03-12 10:10 | Outpatient (REF) | payer OTHER, SELFPAY ==
[2024-03-12 10:59] LABS: MANUAL DIFF FLAG NO
[2024-03-12 11:16] LABS: Basophils Absolute Auto 0.1 X10*3/uL (0.0-0.2); Basophils Percent Auto 0.9 % (0-2); Eosinophils Absolute Auto 0.2 X10*3/uL (0.0-0.4); Eosinophils Percent Auto 1.5 % (0-4); Hemoglobin 17.4 g/dl (14.0-18.0); Imm Gran Abs Auto 0.04 X10*3/uL (0.00-0.03); Imm Gran Pct Auto 0.4 % (0.0-0.4); Lymphocytes Absolute Auto 2.3 X10*3/uL (1.2-4.9); Lymphocytes Percent Auto 20.4 % (20-40); Mean Corpuscular HGB Conc 34.8 g/dl (31.0-36.0); Mean Corpuscular Hemoglobin 34.9 pg (27.0-33.0); Mean Corpuscular Volume 100.4 fL (80.0-98.0); Mean Platelet Volume 11.9 fL (9.4-12.4); Monocytes Absolute Auto 1.1 X10*3/uL (0.1-1.2); Monocytes Percent Auto 9.2 % (2-11); Neutrophils Absolute Auto 7.7 x10*3/uL (2.0-8.3); Neutrophils Percent Auto 67.6 % (45-73); Platelet Count 190 X10*3/uL (160-400); Red Blood Count 4.98 X10*6/uL (4.60-5.80); Red Cell Distribution Width 12.6 % (11.0-16.0); White Blood Count 11.4 X10*3/uL (4.8-10.8)
[2024-03-12 11:46] LABS: Alanine Aminotransferase 32 U/L (0-40); Albumin Level 4.4 g/dL (3.5-5.0); Alkaline Phosphatase 55 U/L (39-117); Anion Gap 16 (12-20); Aspartate Amino Transferase 27 U/L (5-37); Blood Urea Nitrogen 14 mg/dL (9-16); Calcium 9.8 mg/dL (8.4-10.2); Carbon Dioxide 26 mmol/L (22-29); Chloride 102 mmol/L (96-108); Cholesterol 166 mg/dL (<200); Estimated Glomerular Filt Rate > 60; Glucose Fasting 124 mg/dL (60-99); HDL Cholesterol 57 mg/dL (>40); LDL Cholesterol Calculated 94 mg/dL (<100); Potassium 3.8 mmol/L (3.3-5.1); Sodium 140 mmol/L (135-145); Thyroid Stimulating Hormone 1.87 uIU/mL (0.32-4.0); Total Protein 7.4 g/dL (6.5-8.0); Triglycerides 77 mg/dL (<150)
[2024-03-12 11:51] LABS: Prostate Specific Antigen Scr 0.14 ng/mL (<0.05-4.0)
== END 2024-03-12 10:11 | disposition home or self-care (01) ==
LOC: HO.10HDL 10:10
PROVIDERS: Visit Provider Internal Medicine
DX: Z00.00 Encounter for general adult medical examination without abnormal findings (principal); Z12.5 Encounter for screening for malignant neoplasm of prostate; Z13.6 Encounter for screening for cardiovascular disorders; Z13.29 Encounter for screening for other suspected endocrine disorder; Z13.0 Encounter for screening for diseases of the blood and blood-forming organs and certain disorders involving the immune mechanism; Z13.220 Encounter for screening for lipoid disorders
CPT/HCPCS: 36415; 80053; 80061; 84153; 84443; 85025

== ENCOUNTER 2025-03-17 09:29 | Outpatient (AMB) | payer OTHER, SELFPAY ==
--- NOTE | 2025-03-17 09:39 | A.OFFPC_ITS ---
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 by: Spouse Allergies amlodipine Adverse Reaction (Unknown, Verified 03/17/25 09:58) Leg swelling Medication List - Last Reconciled 03/17/25 by IONA Suarez apixaban (Eliquis) 5 mg PO ONCE apixaban 5 mg PO BID carvedilol 12.5 mg PO BID carvedilol 12.5 mg PO ONCE hydrochlorothiazide 25 mg PO DAILY lansoprazole 15 mg PO DAILY loratadine (Allergy Relief (loratadine)) 10 mg PO DAILY psyllium husk (Metamucil) 0.8 grams PO BEDTIME tadalafil 20 mg PO DAILY zolpidem 10 mg PO BEDTIME PRN Tobacco use date assessed: 03/17/25 Fall risk assessment: No Falls in past year Last assessed Fall Risk: 03/17/25 Dental Screening Dental Screen Date: 03/17/25 Did you have a dental visit in the last 12 months?: Yes Did you have a dental problem in the last 6 months where you did not have access to dental care?: No Was dental information given to patient?: Patient has dentist HPI logan Lainer/annual exam HPI Details Dentist: up to date Eye: up to date Snellen: Right: Left: Corrected vision: glasses STI screening: Colonoscopy: due 2026 shingles vaccines: Pneumonia vaccines: Pap Smer:n/a PHQ-9: Flu: up to date COVID: Tdap: Diet:regular, low sodium Exercise:Not able to exercise-due to bilateral hip The patient is a 64-year-old male presenting primarily for a physical examination and management of chronic hip-related pain. His hip pain originated from labral tears diagnosed about 15 years ago, which have progressively worsened. This has degraded his physical capabilities significantly, limiting his activities and affecting his quality of living due to pain and functional impairment. His history of atrial fibrillation is managed with Apixaban, albeit inconsistently, and he has been on antihypertensive therapy which requires monitoring and adherence. His medical history includes previous episodes of shingles and present cardiovascular risks, necessitating proactive management through vaccinations and appropriate medication adherence. His lifestyle choices reflect an attempt to manage sodium intake despite occasional lapses. Patient is taking Coreg and apixaban once a day. Both his medication were prescribed to be taken twice a day. Reports that he made the change in his own. The patient blood pressure is elevated in office. Explained to the patient his risk of a stroke or heart attack with his blood pressure not being controlled, adding, not taking his anticoagulant as ordered. Verbalized understanding and reports that he will start taking these medications 2 times a day. Discussed with the patient also to follow up with Cardiology, he has not been seen since 2022. Verbalize that he will call and make an appointment. Bilateral hips: Reports 15 year diagnostic history of possibly labrum tear in 1 hip and injury to his labrum in the opposite hip. Unsure of the actual diagnosis. The patient reports that his hips has progressively gotten worse. Reports that he was recommended for surgery 15 years ago but did not follow through. Now he is unable to walk long distance without severe pain in bilateral hips. We will start with ordering the patient bilateral hip x-rays. Explained to the patient that even though x-rays might not show any injury to his labrum, it can rule out arthritis in his hip that might be causing pain. Ambien: He had reports that prescription was sent to his pharmacy in [place] by accident. Re-send medication to local pharmacy HEALTH MAINTENANCE: - Pending vaccination for shingles. - Pneumococcal vaccination recommended. - Up-to-date with COVID-19 vaccine. - Tdap vaccination received, valid for 1 0 years. - Colonoscopy scheduled for 2026. - Routine eye and dental exams completed within the last year. - Recommendation for consistent medicati on usage. [facility] Medical History (Updated 03/19/25 @ 04:25 by IONA Suarez) Obesity Atrial fibrillation Transaminitis Chronic GERD Insomnia Obesity Essential hypertension VSD (ventricular septal defect) Hypertension Surgical History History of recent dental procedure History of rectal polypectomy History of surgery on extremity History of appendectomy Family History Father No problems noted. Mother No problems noted. Brother Heart attack Family/Other Vascular disease Social History Household Members: Spouse Housing: House Do you presently have visiting nurse or other home services: No Alcohol intake: current Alcohol intake frequency: does not drink Patient Tobacco Use Status: Current someday Tobacco user Tobacco use type: Cigar e-Cigarette/Vaping Use: Never Used Second Hand Smoke Exposure: No service: No Current occupational status: employed Cognitive needs: No Hearing needs: No Vision needs: Yes (glasses) Questionnaire PHQ-9 Over the last 2 weeks, how often have you been bothered by any of the following problems? 1. Little interest or pleasure in doing things: not at all 2. Feeling down, depressed, or hopeless: not at all 3. Trouble falling or staying asleep, or sleeping too much: not at all 4. Feeling tired or having little energy: not at all 5. Poor appetite or overeating: not at all 6. Feeling bad about yourself - or that you are a failure or have let yourself or your family down: not at all 7. Trouble concentrating on things, such as reading the newspaper or watching television: not at all 8. Moving or speaking so slowly that other people could have noticed. Or the opposite - being so fidgety or restless that you have been moving around a lot more than usual: not at all 9. Thoughts that you would be better off or of hurting yourself in some way: not at all Total score: 0 Depression Screening Interpretation: Negative Depression Screening Done: Yes [id number] - PHQ-9 Billing: Yes Source: Developed by Drs. Chriss Alvarado, Franci Clarke, Christiano Tsang and colleagues, with an educational emelina from [employer]. Thrive Questionnaire Date Thrive assessed: 03/17/25 I am a: Patient What is your living situation today?: I have a steady place to live Within the past 12 months, did the food you bought not last and you didn't have the money to get more?: Never true Within the past 12 months, did you worry whether your food would run out before you got money to buy more?: Never true Do you have trouble paying for medicines?: No Do you have trouble getting transportation to medical appointments?: No Do you have trouble paying your heating and electricity bill?: No Do you have trouble taking care of your child, family member or friend?: No Do you have trouble with day-to-day activities such as bathing, preparing meals, shopping, managing finances, etc.?: No Are you currently unemployed and looking for a job?: No Are you interested in more education?: No Please select the resources that you would like help with: None THRIVE Score: 0 AUDIT C Alcohol Use Questionnaire (AUDIT-C) 1. How often do you have a drink containing alcohol?: 4 or more times a week 2. How many drinks containing alcohol do you have on a typical day when you are drinking?: 3 or 4 3. How often do you have six or more drinks on one occasion?: Less than monthly Total Score: 6 Score Reviewed/Action Taken: Yes SINDHU-7 AMB Questionnaire SINDHU-7 Date SINDHU - 7 assessed: 03/17/25 Feeling nervous, anxious, or on edge: 0 = Not at all Not being able to stop or control worryin = Not at all Worrying too much about different things: 0 = Not at all Trouble relaxin = Nearly every day Being so restless that it is hard to sit still: 0 = Not at all Becoming easily annoyed or irritable: 3 = Nearly every day Feeling afraid as if something awful might happen: 0 = Not at all Total SINDHU-7 score (0-4 normal; 5-9 mild; 10-14 moderate; 15-21 severe): 6 Source: Developed by Drs. Chriss Alvarado, Franci Clarke, Christiano Tsang and colleagues, with an educational emelina from [employer]. SINDHU-7 Assessment Billing SINDHU-7 Assessment Tool: SINDHU-7 Assessment 24517 Review of Systems Const Details: - Neurological: Denies neurological deficits. - Cardiovascular: Reports shortness of breath; denies chest pain. - Respiratory: Denies respiratory symptoms. - Musculoskeletal: Reports severe pain in bilateral hips and lower back. - Gastrointestinal: Denies abdominal pain and bowel habit changes. - Genitourinary: Denies significant urinary complaints apart from nocturia. - General: Reports chronic pain. - Ophthalmologic: Reports visual impairment requiring glasses. - Infectious Disease: Denies current infectious symptoms. Denies headache(s) Eyes Denies loss of vision ENT Denies vertigo, Denies dizziness, Denies headache(s) and Denies sore throat Card Denies chest pain, Denies leg edema, Denies lightheadedness and Reports dyspnea on exertion Resp Denies cough, Denies hemoptysis, Reports dyspnea on exertion and Denies wheezing GI Denies abdominal pain, Denies melena, Denies constipation, Denies diarrhea and Denies vomiting Denies dysuria, Reports nocturia, Denies urinary frequency and Denies urinary urgency Musc Reports back pain, Reports arthralgias (Bilateral hips), Denies joint swelling, Denies numbness and Denies tingling Neuro Denies Abnormal speech present, Denies behavioral changes, Denies vertigo, Denies dizziness, Denies headache(s), Denies loss of vision, Denies memory loss, Denies numbness and Denies tingling Psych Denies anxiety, Denies behavioral changes, Denies depression, Denies memory loss and Denies panic attacks Javy/Lymph Denies easy bleeding and Denies easy bruising Aller/Immun Denies wheezing Physical exam (Primary Care) Vital Signs: Last Vital Signs Temp 98.7 F 03/17/25 09:40 Pulse 66 03/17/25 09:40 BP 162/100 H 03/17/25 09:40 Pulse Ox 98 03/17/25 09:40 Oxygen Delivery Method Room Air 03/17/25 09:40 BMI result Body Mass Index 33.3 Tobacco/Smoking Status: Tobacco use Status Tobacco use date assessed 03/17/25 03/17/25 09:48 Patient Tobacco Use Status Current someday Tobacco 03/17/25 09:48 Tobacco use type Cigar 03/17/25 09:48 e-Cigarette/Vaping Use Never Used 03/17/25 09:48 PHQ-9: PHQ-9 Score PHQ-9: Total score 0 03/17/25 10:16 Depression Screening Interpretation: Negative Thrive Assessment: Date of Thrive Assessment Date Thrive assessed 03/17/25 03/17/25 09:48 Const General: healthy appearing, no acute distress, alert and awake Nutritional Appearance: well nourished Orientation/consciousness: oriented to person, oriented to place and oriented to time HENMT Ears: TM's normal bilaterally General nose exam: Normal nasal mucous membranes and turbinates present Eyes Conjunctivae: conjunctivae normal Sclerae: sclerae normal Pupils: Equal, round and reactive pupils present Neck Neck: Yes no lymphadenopathy and Yes no JVD Thyroid: Thyroid normal Carotids: no bruits Resp Effort & Inspection: normal respiratory effort and not tachypneic Auscultation: no crackles, no rales, no rhonchi and no wheezes Cardio Rate: regular rate Rhythm: regular rhythm Heart sounds: Murmur heart sound present systolic and normal S1 and S2 GI Palpation (GI): Soft to palpation, nontender, no hepatomegaly and no splenomegaly Auscultation: normal bowel sounds Back/Spine/Pelvis Thoracic/Lumbar Spine: No thoracic spinal tenderness and No lumbar spinal tenderness Skin General skin exam: no rashes or lesions noted and dry skin Neuro General: oriented to person, oriented to place and oriented to time Cranial nerves: Yes Equal, round and reactive pupils present Speech: No Abnormal speech present Gait exam (Neuro): Normal gait present Motor exam (neuro): no tremor noted Extrem Right upper extremity: full ROM Left upper extremity: full ROM Right lower extremity: full ROM; no edema Left lower extremity: full ROM; no edema Psych Mental Status: mental status grossly normal Speech and movement: Normal speech and movement present Affect: normal affect Attitude: cooperative Thought process: Normal thought process present Results AMB Hemoglobin A1c AMB Hemoglobin A1c 5.9 % Last Edit by Janette Ba CMA on 03/17/25 09:58 Immunizations Boostrix Tdap 2.5 Lf unit-8 mcg-5 Lf/0.5 mL intramuscular syringe Performing Provider: IONA Suarez [facility] Administered by: Janette Ba CMA on 03/17/25 10:17 Dose Route Admin Location Dispensed Lot Number Expiration Date 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 0.5 mL IM Right Deltoid 0.5 mL [id number] 06/30/27 [id number] [employer] VIS Given Date VIS Provided VIS Publication Date 03/17/25 Single Vaccine 24 Eligibility Eligibility Date Funding Source Not [facility] Eligible 03/17/25 Private Results Reviewed Results Reviewed: Laboratory Last Values Hgb A1c (Clinic) 5.9 % (4.0-6.0) 03/17/25 09:57 Coding Level of Care Code Est Pt Prev Care 40-64y(73065) Diagnoses Physical exam, annual Z00.00 Longstanding persistent atrial fibrillation I48.11 Atrial fibrillation type: longstanding persistent Class 1 obesity with serious comorbidity and body mass index (BMI) of 33.0 to 33.9 in adult, unspecified obesity type E66.811; Z68.33 Obesity type: unspecified obesity type Obesity classification: adult class 1 (BMI 30 - 34.9) Body mass index: BMI 33.0-33.9 Serious obesity comorbidity presence: with serious comorbidity ELI (obstructive sleep apnea) G47.33 Arthritis of both hips M16.0 Laterality: bilateral Hypertension, unspecified type I10 Hypertension type: unspecified Chronic bilateral low back pain without sciatica M54.50; G89.29 Chronicity: chronic Back pain laterality: bilateral Sciatica presence: without sciatica Additional Codes SINDHU-7 Assessment Billing - SINDHU-7 Assessment Tool: SINDHU-7 Assessment 99675 ([id number]) PHQ-9 - 73463 - PHQ-9 Billing: Yes ([id number]) Time Spent (min) 43 Assessment & Plan Assessment & Plan (1) Physical exam, annual: Code(s): Z00.00 - Encounter for general adult medical examination without abnormal findings Category: Medical Plan: Preventative guidelines reviewed with the patient. No recent labs, orders placed. Tdap given in office today. (2) Atrial fibrillation: Code(s): I48.91 - Unspecified atrial fibrillation Category: Medical Qualifiers: Atrial fibrillation type: longstanding persistent Qualified Code(s): I48.11 - Longstanding persistent atrial fibrillation Plan: Adhere to apixaban 5 mg b.i.d. and ordered blood pressure medications. Monitor blood pressure frequently. The patient was ordered diltiazem 120 mg daily the last time he was seen by Cardiology in 2022. The patient has not been taking this medication. Encouraged the patient to follow up with Cardiology. (3) Obesity: Comment: see above Code(s): E66.9 - Obesity, unspecified Category: Medical Qualifiers: Obesity type: unspecified obesity type Obesity classification: adult class 1 (BMI 30 - 34.9) Body mass index: BMI 33.0-33.9 Serious obesity comorbidity presence: with serious comorbidity Qualified Code(s): E66.811 - Obesity, class 1; Z68.33 - Body mass index [BMI] 33.0-33.9, adult Plan: Encouraged low-cholesterol diet and activity as tolerated (4) ELI (obstructive sleep apnea): Code(s): G47.33 - Obstructive sleep apnea (adult) (pediatric) Category: Medical Plan: Continue CPAP (5) Hip arthritis: Code(s): M16.10 - Unilateral primary osteoarthritis, unspecified hip Category: Medical Qualifiers: Laterality: bilateral Qualified Code(s): M16.0 - Bilateral primary osteoarthritis of hip Plan: Ongoing bilateral hip pain. In managed by OTC pain medication. Increase pain in bilateral hip decreasing mobility. Reports that he was diagnosed fifteen years ago with labral tear in 1 hip and an injury to the labrum in the other. He is unsure of the specifics but recalled that he was recommended for surgery in opted not to at the time. We will order bilateral hip x-ray to re-evaluate this arthritis status. Consider sending the patient to Orthopedics for evaluation of possibly labral tear/injury as reported by patient. (6) Hypertension: Code(s): I10 - Essential (primary) hypertension Category: Medical Qualifiers: Hypertension type: unspecified Qualified Code(s): I10 - Essential (primary) hypertension Plan: Blood pressure elevated in office. The patient isn't taking his medications as prescribed. Encouraged adherence to medication as ordered. Encouraged a dash diet. Monitor blood pressure frequently and reports abnormal readings. Cons ider adding another blood pressure regimen in the near future. (7) Low back pain: Code(s): M54.50 - Low back pain, unspecified Category: Medical Qualifiers: Chronicity: chronic Back pain laterality: bilateral Sciatica presence: without sciatica Qualified Code(s): M54.50 - Low back pain, unspecified; G89.29 - Other chronic pain Plan: Lumbar x-ray completed shows narrowing and endplate osteophyte formation. Degeneration of spine. Continue OTC pain management. Orders: Orders TDaP Immunization 03/17/25 Z23 - Encounter for immunization XR lumbar spine 2-3V 03/17/25 M54.50 - Low back pain, unspecified Complete Blood Count Auto Diff 03/17/25 G47.33 - Obstructive sleep apnea (adult) (pediatric), I48.91 - Unspecified atrial fibrillation, Z00.00 - Encounter for general adult medical examination without abnormal findings Vitamin D 25-OH Total 03/17/25 G47.33 - Obstructive sleep apnea (adult) (pediatric), I48.91 - Unspecified atrial fibrillation, Z00.00 - Encounter for general adult medical examination without abnormal findings UA CC w/rflx Micro + Cult 03/17/25 G47.33 - Obstructive sleep apnea (adult) (pediatric), I48.91 - Unspecified atrial fibrillation, Z00.00 - Encounter for general adult medical examination without abnormal findings AMB Hemoglobin A1c 03/17/25 R73.01 - Impaired fasting glucose XR hip RT min 2V 03/17/25 M25.551 - Pain in right hip Comprehensive [place]. Panel Fast 03/17/25 G47.33 - Obstructive sleep apnea (adult) (pediatric), I48.91 - Unspecified atrial fibrillation, Z00.00 - Encounter for general adult medical examination without abnormal findings TSH reflex Free T4 03/17/25 G47.33 - Obstructive sleep apnea (adult) (pediatric), I48.91 - Unspecified atrial fibrillation, Z00.00 - Encounter for general adult medical examination without abnormal findings Lipid Panel 03/17/25 G47.33 - Obstructive sleep apnea (adult) (pediatric), I48.91 - Unspecified atrial fibrillation, Z00.00 - Encounter for general adult medical examination without abnormal findings Microalbumin, Random (w Creat) 03/17/25 G47.33 - Obstructive sleep apnea (adult) (pediatric), I48.91 - Unspecified atrial fibrillation, Z00.00 - Encounter for general adult medical examination without abnormal findings PSA,Total (Free>4and<10) 03/17/25 G47.33 - Obstructive sleep apnea (adult) (pediatric), I48.91 - Unspecified atrial fibrillation, Z00.00 - Encounter for general adult medical examination without abnormal findings Referrals Orthopedics Referral M16.0 - Bilateral primary osteoarthritis of hip, M25.551 - Pain in right hip, M25.552 - Pain in left hip Medications: New carvedilol must administer with a meal/food 12.5 mg PO BID 60 tabs 3RF apixaban 5 mg PO BID 60 tabs 3RF Refilled zolpidem 10 mg PO BEDTIME PRN 30 tabs 0RF sleep
[2025-03-17 09:40] VITALS: BP 162/100; PULSE 66; TEMP 37.1; O2SAT 98; BMI 33.3
== END 2025-03-17 10:39 | disposition home or self-care (01) ==
DX: R73.01 Impaired fasting glucose (principal); Z23 Encounter for immunization

== ENCOUNTER 2025-03-17 09:29 | Outpatient (REF) | payer OTHER, SELFPAY ==
--- NOTE | ~2025-03-17 | XR_ITS ---
CLINICAL HISTORY: M25.552 - Pain in left hip 4 view, pelvis and bilateral hips Comparison: None Findings: No acute fracture or dislocation. Periarticular osteophyte formation at the bilateral hip joints. The soft tissues are unremarkable. IMPRESSION: No acute findings. This document has been electronically signed by: Cassy Carolina MD on 03/17/2025 15:59:50
--- NOTE | ~2025-03-17 | XR_ITS ---
CLINICAL HISTORY: M54.50 - Low back pain, unspecified 3 views lumbar spine Comparison: None Findings: Normal alignment. No acute fractures or dislocation. Multilevel disc space narrowing and endplate osteophyte formation, as well as facet hypertrophy. IMPRESSION: No acute findings. This document has been electronically signed by: Cassy Carolina MD on 03/17/2025 15:59:40
== END 2025-03-17 09:30 | disposition home or self-care (01) ==
LOC: HO.XRAY 09:29
DX: Z00.00 Encounter for general adult medical examination without abnormal findings (principal); Z23 Encounter for immunization; I48.11 Longstanding persistent atrial fibrillation; E66.811 Obesity, class 1; Z68.33 Body mass index [BMI] 33.0-33.9, adult; G47.33 Obstructive sleep apnea (adult) (pediatric); M16.0 Bilateral primary osteoarthritis of hip; I10 Essential (primary) hypertension; M54.50 Low back pain, unspecified; G89.29 Other chronic pain; Z13.1 Encounter for screening for diabetes mellitus
CPT/HCPCS: 72100; 73522; 83036; 90471; 90715; 96127

== ENCOUNTER → 2025-03-17 11:01 | Outpatient (BNV) | payer OTHER, SELFPAY | PROVIDERS: Visit Provider Radiology Diagnostic Radiology | DX: M25.552 Pain in left hip (principal); M54.50 Low back pain, unspecified | CPT/HCPCS: 72100; 73522 ==

== ENCOUNTER 2025-03-24 09:23 | Outpatient (REF) | payer OTHER, SELFPAY ==
[2025-03-24 09:43] LABS: MANUAL DIFF FLAG NO
[2025-03-24 09:52] LABS: Basophils Absolute Auto 0.1 X10*3/uL (0.0-0.2); Basophils Percent Auto 0.8 % (0-2); Eosinophils Absolute Auto 0.2 X10*3/uL (0.0-0.4); Hematocrit 48.7 % (42.0-52.0); Imm Gran Abs Auto 0.04 X10*3/uL (0.00-0.03); Imm Gran Pct Auto 0.4 % (0.0-0.4); Lymphocytes Absolute Auto 2.2 X10*3/uL (1.2-4.9); Lymphocytes Percent Auto 19.2 % (20-40); Mean Corpuscular HGB Conc 34.9 g/dl (31.0-36.0); Mean Corpuscular Hemoglobin 35.9 pg (27.0-33.0); Mean Corpuscular Volume 102.7 fL (80.0-98.0); Mean Platelet Volume 10.8 fL (9.4-12.4); Monocytes Absolute Auto 1.2 X10*3/uL (0.1-1.2); Monocytes Percent Auto 10.3 % (2-11); Neutrophils Absolute Auto 7.6 x10*3/uL (2.0-8.3); Neutrophils Percent Auto 67.3 % (45-73); Platelet Count 210 X10*3/uL (160-400); Red Blood Count 4.74 X10*6/uL (4.60-5.80); Red Cell Distribution Width 12.3 % (11.0-16.0); White Blood Count 11.2 X10*3/uL (4.8-10.8)
[2025-03-24 10:49] LABS: PSA,Total (Free>4and<10) 0.13 ng/mL (0.00-4.00)
[2025-03-24 10:50] LABS: Alanine Aminotransferase 45 U/L (0-40); Albumin Level 4.2 g/dL (3.5-5.0); Alkaline Phosphatase 57 U/L (39-117); Anion Gap 14 (12-20); Aspartate Amino Transferase 46 U/L (5-37); Bilirubin Total 1.3 mg/dL (0.0-1.0); Blood Urea Nitrogen 10 mg/dL (9-16); Calcium 9.7 mg/dL (8.4-10.2); Carbon Dioxide 29 mmol/L (22-29); Chloride 101 mmol/L (96-108); Cholesterol 159 mg/dL (<200); Estimated Glomerular Filt Rate > 60; Glucose Fasting 121 mg/dL (60-99); HDL Cholesterol 61 mg/dL (>40); LDL Cholesterol Calculated 74 mg/dL (<100); Potassium 4.5 mmol/L (3.3-5.1); Sodium 139 mmol/L (135-145); Total Protein 7.1 g/dL (6.5-8.0); Triglycerides 122 mg/dL (<150)
[2025-03-24 10:53] LABS: TSH reflex Free T4 1.72 uIU/mL (0.32-4.0)
[2025-03-24 11:55] LABS: Appearance Urine Clear; Color Urine Dark Yellow; Glucose Urine UA Negative (Negative); Leukocyte Esterase Urine Negative (Negative); Nitrite Urine Negative (Negative); Specific Gravity - Urine 1.015 (1.005-1.025); Urine Blood Negative (Negative); Urine Ketones Trace mg/dL (Negative); Urine Protein Trace mg/dL (Neg-Trace)
[2025-03-24 12:32] LABS: Creatinine Urine 191.49 mg/dL; Microalbum/Creatinine Ratio Ur 11.4 ug/mg cr (<30)
== END 2025-03-24 09:24 | disposition home or self-care (01) ==
LOC: HO.LAB 09:23
DX: Z00.00 Encounter for general adult medical examination without abnormal findings (principal); I48.91 Unspecified atrial fibrillation; G47.33 Obstructive sleep apnea (adult) (pediatric); Z12.5 Encounter for screening for malignant neoplasm of prostate
CPT/HCPCS: 36415; 80053; 80061; 81003; 82043; 82306; 82570; 84153; 84443; 85025

== ENCOUNTER 2025-04-08 06:12 | Emergency (ER) | payer OTHER, SELFPAY ==
--- NOTE | 2025-04-08 | ECG_ITS ---
Test Reason : chest pain Blood Pressure : */* mmHG Vent. Rate : 101 BPM Atrial Rate : * BPM P-R Int : * ms QRS Dur : 88 ms QT Int : 374 ms P-R-T Axes : * 100 42 degrees QTcB Int : 484 ms Atrial fibrillation with rapid ventricular response Rightward axis Cannot rule out Inferior infarct , age undetermined Anteroseptal infarct (cited on or before 22-Nov-2017) Abnormal ECG When compared with ECG of 13-Oct-2021 12:02, Atrial fibrillation has replaced Sinus rhythm Nonspecific T wave abnormality no longer evident in Lateral leads Referred By: Generic ED Physician Electronically Signed By: GARCÍA JACOBO
--- NOTE | ~2025-04-08 | XR_ITS ---
EXAMINATION: XR CHEST 1 VIEW HISTORY: cough COMPARISON: Comparison is made with the prior examination dated 10/11/2021. FINDINGS: A single AP portable view of the chest performed at 6:32 AM is submitted. The lungs are expanded and clear. There is no pleural effusion, pneumothorax, or pulmonary vascular congestion. The heart is enlarged. There is degenerative disc disease of the spine. XR/XR chest 1V IMPRESSION: Cardiomegaly. No acute cardiopulmonary abnormality. Electronically signed by: Chriss Boogie MD 04/08/2025 08:22 AM EDT
[2025-04-08 06:25] VITALS: BP 163/112; RESP 20; TEMP 36.6; O2SAT 97; BMI 32.3
[2025-04-08 07:20] LABS: MANUAL DIFF FLAG NO
[2025-04-08 07:23] LABS: Basophils Absolute Auto 0.1 X10*3/uL (0.0-0.2); Basophils Percent Auto 0.7 % (0-2); Eosinophils Absolute Auto 0.3 X10*3/uL (0.0-0.4); Eosinophils Percent Auto 3.4 % (0-4); Hematocrit 44.9 % (42.0-52.0); Hemoglobin 16.4 g/dl (14.0-18.0); Imm Gran Abs Auto 0.04 X10*3/uL (0.00-0.03); Imm Gran Pct Auto 0.4 % (0.0-0.4); Lymphocytes Absolute Auto 1.5 X10*3/uL (1.2-4.9); Lymphocytes Percent Auto 15.8 % (20-40); Mean Corpuscular HGB Conc 36.5 g/dl (31.0-36.0); Mean Corpuscular Hemoglobin 36.2 pg (27.0-33.0); Mean Corpuscular Volume 99.1 fL (80.0-98.0); Mean Platelet Volume 10.6 fL (9.4-12.4); Monocytes Absolute Auto 1.3 X10*3/uL (0.1-1.2); Monocytes Percent Auto 13.9 % (2-11); Neutrophils Absolute Auto 6.3 x10*3/uL (2.0-8.3); Neutrophils Percent Auto 65.8 % (45-73); Platelet Count 196 X10*3/uL (160-400); Red Blood Count 4.53 X10*6/uL (4.60-5.80); Red Cell Distribution Width 12.2 % (11.0-16.0); White Blood Count 9.6 X10*3/uL (4.8-10.8)
[2025-04-08 07:44] LABS: B Type Natriuretic Peptide 248 pg/mL (<100)
[2025-04-08 07:55] LABS: Alanine Aminotransferase 35 U/L (0-40); Albumin Level 4.2 g/dL (3.5-5.0); Anion Gap 14 (12-20); Aspartate Amino Transferase 35 U/L (5-37); Bilirubin Total 0.8 mg/dL (0.0-1.0); Blood Urea Nitrogen 7 mg/dL (9-16); Calcium 9.2 mg/dL (8.4-10.2); Carbon Dioxide 29 mmol/L (22-29); Chloride 98 mmol/L (96-108); Creatinine Clr Calc Pharmacy 99.1; Estimated Glomerular Filt Rate > 60; Glucose Random 110 mg/dL (60-115); Potassium 3.6 mmol/L (3.3-5.1); Sodium 137 mmol/L (135-145); Total Protein 6.8 g/dL (6.5-8.0); Troponin-I High Sensitivity < 2.7 ng/L (<3.5-35.0)
[2025-04-08 07:59] LABS: Influenza A PCR NEGATIVE (Negative); Influenza B PCR NEGATIVE (Negative); Resp Syncy Virus RNA Qual PCR NEGATIVE (Negative); SARS COV2 PCR INHOUSE NEGATIVE (Negative)
--- NOTE | 2025-04-08 08:29 | ED_ITS ---
HPI - URI/Sore Throat General Chief Complaint: Upper Respiratory Symptoms Stated Complaint: pneumonia ? Time Seen by Provider: 04/08/25 08:29 Source: patient Mode of arrival: ambulatory Limitations: no limitations History of Present Illness ED Provider: Mariela Daugherty PA-C HPI Narrative: Patient seeks medical attention today for evaluation of URI symptoms that started approximately 3 days ago. He is endorsing a productive cough with yellowish-brown sputum. He is concerned about his chest hurting when he coughs really hard otherwise not at rest and not with exertion. He is not exhibiting any fevers chills or sweats. He denies feeling short of breath no abdominal pain no nausea vomiting no diarrhea. Patient states he has whitecoat syndrome on top of his elevated blood pressure. He did take his blood pressure medicine this morning he declines having any while here. He is understands the risks of this. He is without any headaches or dizziness he is without any joint pain or rashes. No history of reactive airway disease other than sleep apnea but he does use a CPAP and is helpful. He is most bothered by his cough that keeps him up at nighttime. MD elicited complaint: cough Related Data Home Medications ?Medication ?Instructions ?Recorded ?Confirmed loratadine 10 mg tablet (Allergy 10 mg PO DAILY 03/17/25 03/17/25 Relief (loratadine)) psyllium husk 0.4 gram capsule 0.8 g PO BEDTIME 03/17/25 03/17/25 (Metamucil) Previous Rx's ?Medication ?Instructions ?Recorded tadalafil 20 mg tablet 20 mg PO DAILY #90 tabs 02/11/24 hydrochlorothiazide 25 mg tablet 25 mg PO DAILY #90 tabs 03/12/24 lansoprazole 15 mg capsule,delayed 15 mg PO DAILY #90 caps 06/11/24 release apixaban 5 mg tablet 5 mg PO BID #60 tabs 03/17/25 carvedilol 12.5 mg tablet 12.5 mg PO BID #60 tabs 03/17/25 zolpidem 10 mg tablet 10 mg PO BEDTIME PRN sleep #30 tabs 03/17/25 benzonatate 200 mg capsule 200 mg PO TID PRN cough #21 caps 04/08/25 doxycycline hyclate 100 mg capsule 100 mg PO BID #14 caps 04/08/25 Allergies Allergy/AdvReac Type Severity Reaction Status Date / Time amlodipine AdvReac Unknown Leg Verified 04/08/25 06:27 swelling Review of Systems 2 Review of Systems: Yes all other systems are reviewed and are negative [facility] Past Medical History Medical History Obesity Atrial fibrillation Transaminitis Chronic GERD Insomnia Obesity Essential hypertension VSD (ventricular septal defect) Hypertension Surgical History History of colonoscopy (~09/22/22) History of recent dental procedure History of rectal polypectomy History of surgery on extremity History of appendectomy Family History Family History Father No problems noted. Mother No problems noted. Brother Heart attack Family/Other Vascular disease Social History Social History Household Members: Spouse Housing: House Do you presently have visiting nurse or other home services: No Alcohol intake: current Alcohol intake frequency: a few times a month Patient Tobacco Use Status: Current someday Tobacco user Tobacco use type: Cigar Smoked in Last 30 Days: No e-Cigarette/Vaping Use: Never Used Second Hand Smoke Exposure: No Advance Directives: No Do you have a plan to hurt others: No Plan service: No Current occupational status: employed Cognitive needs: No Hearing needs: No Vision needs: Yes (glasses) Physical Exam 2 Vital Signs: Vital Signs: Last Vital Signs Temp 97.9 F 04/08/25 08:56 Pulse 62 04/08/25 08:56 Resp 20 04/08/25 08:56 BP 163/112 H 04/08/25 08:56 Pulse Ox 97 04/08/25 08:56 O2 Del Method Room Air 04/08/25 08:56 BMI result Body Mass Index 32.3 Const: Other: [facility] reviewed prior to evaluation. General: cooperative, comfortable, no acute distress, well developed, alert and awake Nutritional Appearance: obese Limitations: no limitations HEENT: Head: Yes normal to inspection Ears: hearing grossly normal bilaterally General nose exam: Normal external nose present Face and sinus: Yes normal facial exam and Yes erythema Mouth: Normal oral and palatal mucosa present, lip normal and tongue normal Teeth and gingiva: dentition normal Throat: Yes posterior oropharynx normal Eyes: General: appearance normal, both eyes and all related structures P eriorbital: periorbital findings normal Eyelids: Yes eyelids normal C onjunctivae: conjunctivae normal Sclerae: sclerae normal Corneas: corneas normal Pupils: Equal, round and reactive pupils present Neck: Neck: Yes normal visual inspection, Yes full ROM and Yes no lymphadenopathy Chest: Chest palpation & inspection: normal inspection of the chest Resp: Effort & Inspection: normal respiratory effort and able to speak in complete sentences Auscultation: clear to auscultation bilaterally Cardio: Jugular venous distension: no JVD Rate: regular rate GI: Inspection: Yes normal to inspection and Yes Abdominal panniculus present Skin: General skin exam: no rashes or lesions noted Neuro: Cranial nerves: Yes Equal, round and reactive pupils present Medical Decision Making Medical Decision Making MDM Narrative: 64 y/o M presenting to ED with PMH significant for HTN, ELI, paroxysmal Afib on Eliquis, and obesity for concerns of URI sxs that started 4 days ago. Afebrile but well appearing in no distress. He has a reassuring physical exam. 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 Discussed his elevated BP which did improve however he has declined BP medicine here both via PO and IV. Patient is not hypoxic and does not require oxygen. He is not endorsing any shortness of breath and does not appear to have any tachycardia less concerning for A-fib with RVR presentation does not seem consistent with cardiac therefore cardiac workup was deferred. He is without any decreased lung sounds or peripheral edema concerning for CHF. CXR wihout pleural effusion or infilrate. He was well-hydrated. Labs without evidence of leukocytosis. He does have baseline anemia no worse than his baseline transfusion is not indicated today. There is no hemoptysis. He was screened for COVID flu this is negative. There is concern for likely viral sinusitis leading to his cough. Presentation does not seem consistent with PNA or bronchitis today. WIll give abx based on comorbidities , doxy considered for both sinus and lung covered. He is aware to do w/w vs starting. He will seek medical attention again for concerns. He was d/c to home stable. Differential Diagnosis Differential Diagnoses: The differential diagnosis associated with the presentation includes See MDM Admission/Observation Consideration of admission/observation: Escalation of care including admission/observation considered Patient's presentation and lab results/imaging warrant further intervention. Lab Data MDM Lab Attestation statement: I reviewed the patient's lab results. Baseline anemia, no leukocytosis or metabolic dysfunction. 04/08/25 07:14 04/08/25 07:14 Labs: Lab Results 04/08/25 Range/Units 07:14 WBC 9.6 (4.8-10.8) X10*3/uL RBC 4.53 L (4.60-5.80) X10*6/uL Hgb 16.4 (14.0-18.0) g/dl Hct 44.9 (42.0-52.0) % MCV 99.1 H (80.0-98.0) fL MCH 36.2 H (27.0-33.0) pg MCHC 36.5 H (31.0-36.0) g/dl RDW 12.2 (11.0-16.0) % Plt Count 196 (160-400) X10*3/uL MPV 10.6 (9.4-12.4) fL Immature Gran % (Auto) 0.4 (0.0-0.4) % Neut % (Auto) 65.8 (45-73) % Lymph % (Auto) 15.8 L (20-40) % [place] % (Auto) 13.9 H (2-11) % Eos % (Auto) 3.4 (0-4) % Baso % (Auto) 0.7 (0-2) % Lymph # (Auto) 1.5 (1.2-4.9) X10*3/uL [place] # (Auto) 1.3 H (0.1-1.2) X10*3/uL Eos # (Auto) 0.3 (0.0-0.4) X10*3/uL Baso # (Auto) 0.1 (0.0-0.2) X10*3/uL Abs Immat Gran (auto) 0.04 H (0.00-0.03) X10*3/uL Absolute Neuts (auto) 6.3 (2.0-8.3) x10*3/uL Absolute Nucleated RBC 0.000 (0.0-0.012) X10*3/uL Nucleated RBC % (auto) 0.0 (0.0-0.2) /100WBC Sodium 137 (135-145) mmol/L Potassium 3.6 (3.3-5.1) mmol/L Chloride 98 (96-108) mmol/L Carbon Dioxide 29 (22-29) mmol/L Anion Gap 14 (12-20) BUN 7 L (9-16) mg/dL Creatinine 0.82 (0.5-1.4) mg/dL Estim Creat Clear Calc 99.1 Estimated GFR > 60 Random Glucose 110 (60-115) mg/dL Calcium 9.2 (8.4-10.2) mg/dL Total Bilirubin 0.8 (0.0-1.0) mg/dL AST 35 (5-37) U/L ALT 35 (0-40) U/L Alkaline Phosphatase 54 (39-117) U/L Troponin I High Sens < 2.7 (<3.5-35.0) ng/L B-Natriuretic Peptide 248 H (<100) pg/mL Total Protein 6.8 (6.5-8.0) g/dL Albumin 4.2 (3.5-5.0) g/dL Influenza Type A (PCR) NEGATIVE (Negative) Influenza Type B (PCR) NEGATIVE (Negative) RSV RNA Qual (PCR) NEGATIVE (Negative) SARS-CoV-2 RNA (RT-PCR) NEGATIVE (Negative) Independent Interpretation I performed an independent interpretation of an: EKG and Plain X-Ray Interpretation: See MDM Radiology Impression Discussion of test interpretation with radiology: I have reviewed the radiologist's reading. Radiologist Impression: mild cardiomegaly, no infilrate Tests considered The following testing was considered but not selected: CTA had there been for concern for aortic dissection/ PE. Prescription Management I considered prescription management with: Antiviral and Antibiotic Chronic Conditions Patient?s care impacted by: Hypertension Discharge Plan Discharge Clinical Impression: Acute maxillary sinusitis, Acute bronchitis Patient Disposition: Home, Self-Care Additional Instructions: Acute bronchitis is a common clinical condition characterized by an acute onset but persistent cough, with or without sputum production. It is typically self- limited, resolving often within three weeks. Symptoms result from inflammation of the lower respiratory tract and are most frequently due to a viral infection. Yellow/green mucus is a sign that whatever virus or infection you have is taking hold. The good news? Your body is fighting back. The yellow color comes from the cells - white blood cells, for example - rushing to kill the offending germs. Once the cells have done their work, they?re discarded in your snot and tinge it a yellowish-brown For most patients, acute bronchitis is a self-limited illness that does not require specific diagnostic testing or treatment. Treatment is focused on patient education and supportive care. Antibiotics are not needed for the great majority of patients with acute bronchitis but are greatly overused for this condition. Reducing antibiotic use for acute bronchitis is a national and international health care priority. Non pharmaceutical treatment: throat lozenges, warm tea with honey, and/or smoking cessation or avoidance of secondhand smoke. If you feel your symptoms are worsening, you develop a fever, trouble breathing, or any other new, concerning symptoms please be re-evaluated immediately. Prescriptions: New doxycycline hyclate 100 mg capsule 100 mg PO BID Qty: 14 0RF benzonatate 200 mg capsule 200 mg PO TID PRN (Reason: cough) Qty: 21 0RF No Action tadalafil 20 mg tablet 20 mg PO DAILY Qty: 90 26RF lansoprazole 15 mg capsule,delayed release(DR/EC) 15 mg PO DAILY Qty: 90 5RF hydrochlorothiazide 25 mg tablet 25 mg PO DAILY Qty: 90 8RF loratadine [Allergy Relief (loratadine)] 10 mg tablet 10 mg PO DAILY psyllium husk [Metamucil] 0.4 gram capsule 0.8 g PO BEDTIME apixaban 5 mg tablet 5 mg PO BID Qty: 60 3RF carvedilol 12.5 mg tablet 12.5 mg PO BID Qty: 60 3RF Rx Instructions: must administer with a meal/food zolpidem 10 mg tablet 10 mg PO BEDTIME PRN (Reason: sleep) Qty: 30 0RF Referrals: Noble Lewis FNP-C [Primary Care Provider] - Interventions: ED Discharge Assessment Last Done: 04/08/25 08:56 Discharge Date/Time: 04/08/25 09:11 Print Language: [place]
[2025-04-08 08:56] VITALS: BP 163/112; PULSE 62; RESP 20; TEMP 36.6; O2SAT 97
[2025-04-08 12:55] LABS: Alkaline Phosphatase 54 U/L (39-117)
== END 2025-04-08 09:11 | disposition home or self-care (01) ==
PROVIDERS: Emergency Provider Emergency Medicine
DX: J01.00 Acute maxillary sinusitis, unspecified (principal); J40 Bronchitis, not specified as acute or chronic; R05.9 Cough, unspecified; I48.91 Unspecified atrial fibrillation; I11.9 Hypertensive heart disease without heart failure; Z79.01 Long term (current) use of anticoagulants; Z79.899 Other long term (current) drug therapy; Z03.818 Encounter for observation for suspected exposure to other biological agents ruled out
CPT/HCPCS: 0241U; 36415; 71045; 80053; 83880; 84484; 85025; 93005; 99283; 99284

== ENCOUNTER → 2025-04-08 06:30 | Outpatient (BNV) | payer OTHER, SELFPAY | PROVIDERS: Emergency Provider Emergency Medicine; Visit Provider Radiology Diagnostic Radiology | DX: R05.9 Cough, unspecified (principal) | CPT/HCPCS: 71045 ==

== ENCOUNTER → 2025-04-08 06:34 | Outpatient (BNV) | payer OTHER, SELFPAY | PROVIDERS: Emergency Provider Emergency Medicine; Visit Provider Internal Medicine | DX: I48.91 Unspecified atrial fibrillation (principal); I25.2 Old myocardial infarction | CPT/HCPCS: 93010 ==

== ENCOUNTER 2025-04-16 10:03 | Outpatient (AMB) | payer OTHER, SELFPAY ==
[2025-04-16 10:06] VITALS: BP 146/100; PULSE 105; O2SAT 97; BMI 32.5
--- NOTE | 2025-04-16 10:06 | A.OFFPC_ITS ---
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: No Accompanied by: Self / Same As Patient Allergies amlodipine Adverse Reaction (Unknown, Verified 04/16/25 10:45) Leg swelling Medication List - Last Reconciled 04/16/25 by Albina Burrell PA-C apixaban 5 mg PO BID benzonatate 200 mg PO TID PRN carvedilol 12.5 mg PO BID doxycycline hyclate 100 mg PO BID hydrochlorothiazide 25 mg PO DAILY lansoprazole 15 mg PO DAILY loratadine (Allergy Relief (loratadine)) 10 mg PO DAILY psyllium husk (Metamucil) 0.8 grams PO BEDTIME tadalafil 20 mg PO DAILY zolpidem 10 mg PO BEDTIME PRN Tobacco use date assessed: 04/16/25 Fall risk assessment: No Falls in past year Last assessed Fall Risk: 04/16/25 Dental Screening Dental Screen Date: 04/16/25 Did you have a dental visit in the last 12 months?: Yes Did you have a dental problem in the last 6 months where you did not have access to dental care?: No Was dental information given to patient?: Patient has dentist HPI [facility] [place] 04/08 pneumonia ? HPI Details 64-year-old male with past medical histo ry of atrial fibrillation, obesity, obstructive sleep apnea last seen by nurse practitioner 03/2025 coming in for hospital discharge follow up. In review of the notes patient was seen in [facility] [place] ED 04/14/2025 patient was initially hypertensive blood pressure responded to p.o. and IV medication. He was given doxycycline for sinusitis and benzonatate pills and discharged home. Presenting for a follow-up visit after an emergency room visit for sinusitis and hypertension management. Hypertension: The patient reports elevated blood pressure readings during an ER visit, attributed to stress and prolonged waiting time. Home blood pressure readings are generally within normal limits. Sinusitis: Initially diagnosed in the ER, the patient was prescribed doxycycli ne, which took a few days to take effect. Symptoms include coughing up thick, brownish-yellow phlegm and difficulty sleeping due to coughing. [facility] Medical History Obesity Atrial fibrillation Transaminitis Chronic GERD Insomnia Obesity Essential hypertension VSD (ventricular septal defect) Hypertension Surgical History History of colonoscopy (~09/22/22) History of recent dental procedure History of rectal polypectomy History of surgery on extremity History of appendectomy Family History Father No problems noted. Mother No problems noted. Brother Heart attack Family/Other Vascular disease Social History Household Members: Spouse Housing: House Do you presently have visiting nurse or other home services: No Alcohol intake: current Alcohol intake frequency: a few times a month Patient Tobacco Use Status: Current someday Tobacco user Tobacco use type: Cigar e-Cigarette/Vaping Use: Never Used Second Hand Smoke Exposure: No service: No Current occupational status: employed Cognitive needs: No Hearing needs: No Vision needs: Yes (glasses) Questionnaire PHQ-9 Over the last 2 weeks, how often have you been bothered by any of the following problems? 1. Little interest or pleasure in doing things: not at all 2. Feeling down, depressed, or hopeless: not at all 3. Trouble falling or staying asleep, or sleeping too much: not at all 4. Feeling tired or having little energy: not at all 5. Poor appetite or overeating: not at all 6. Feeling bad about yourself - or that you are a failure or have let yourself or your family down: not at all 7. Trouble concentrating on things, such as reading the newspaper or watching television: not at all 8. Moving or speaking so slowly that other people could have noticed. Or the opposite - being so fidgety or restless that you have been moving around a lot more than usual: not at all 9. Thoughts that you would be better off or of hurting yourself in some way: not at all Total score: 0 Depression Screening Interpretation: Negative Depression Screening Done: Yes 67050 - PHQ-9 Billing: Yes Source: Developed by Drs. Chriss Alvarado, Franci Clarke, Christiano Tsang and colleagues, with an educational emelina from [employer]. Thrive Questionnaire Date Thrive assessed: 04/16/25 I am a: Patient What is your living situation today?: I have a steady place to live Within the past 12 months, did the food you bought not last and you didn't have the money to get more?: Never true Within the past 12 months, did you worry whether your food would run out before you got money to buy more?: Never true Do you have trouble paying for medicines?: No Do you have trouble getting transportation to medical appointments?: No Do you have trouble paying your heating and electricity bill?: No Do you have trouble taking care of your child, family member or friend?: No Do you have trouble with day-to-day activities such as bathing, preparing meals, shopping, managing finances, etc.?: No Are you currently unemployed and looking for a job?: No Are you interested in more education?: No Please select the resources that you would like help with: None Currently or been in a relationship where the following occur: No concerns reported THRIVE Score: 0 AUDIT C Alcohol Use Questionnaire (AUDIT-C) 1. How often do you have a drink containing alcohol?: 2-4 times a month 2. How many drinks containing alcohol do you have on a typical day when you are drinking?: 1 or 2 3. How often do you have six or more drinks on one occasion?: Never Total Score: 2 SINDHU-7 AMB Questionnaire SINDHU-7 Date SINDHU - 7 assessed: 04/16/25 Feeling nervous, anxious, or on edge: 0 = Not at all Not being able to stop or control worryin = Not at all Worrying too much about different things: 0 = Not at all Trouble relaxin = Not at all Being so restless that it is hard to sit still: 0 = Not at all Becoming easily annoyed or irritable: 0 = Not at all Feeling afraid as if something awful might happen: 0 = Not at all Total SINDHU-7 score (0-4 normal; 5-9 mild; 10-14 moderate; 15-21 severe): 0 Source: Developed by Drs. Chriss Alvarado, Franci Clarke, Christiano sTang and colleagues, with an educational emelina from [employer]. Review of Systems Const Denies body aches, Denies chills, Denies fever(s), Denies headache(s) and Denies poor appetite Eyes Reports no additional complaints ENT Denies dizziness and Denies headache(s) Card Denies chest pain, Denies irregular heart rhythm, Denies lightheadedness and Den ies dyspnea Resp Reports cough, Denies hemoptysis and Denies dyspnea GI Denies diarrhea, Denies nausea and Denies vomiting Reports no additional complaints Musc Reports no additional complaints and Denies abnormal gait Skin/Breast Reports system reviewed and no additional complaints, except as documented Neuro Denies abnormal gait, Denies dizziness and Denies headache(s) Psych Reports no additional complaints Physical exam (Primary Care) Vital Signs: Last Vital Signs Pulse 105 H 04/16/25 10:06 BP 146/100 H 04/16/25 10:06 Pulse Ox 97 04/16/25 10:06 Oxygen Delivery Method Room Air 04/16/25 10:06 BMI result Body Mass Index 32.5 Tobacco/Smoking Status: Tobacco use Status Tobacco use date assessed 04/16/25 04/16/25 10:12 Patient Tobacco Use Status Current someday Tobacco 04/16/25 10:12 Tobacco use type Cigar 04/16/25 10:12 e-Cigarette/Vaping Use Never Used 04/16/25 10:12 PHQ-9: PHQ-9 Score PHQ-9: Total score 0 04/16/25 10:12 Depression Screening Interpretation: Negative Thrive Assessment: Date of Thrive Assessment Date Thrive assessed 04/16/25 04/16/25 10:12 Currently or been in a relationship where the following occur: No concerns repor tal Const General: cooperative, healthy appearing, comfortable and no acute distress Orientation/consciousness: patient oriented x3 HENMT Head: Yes normocephalic Ears: hearing grossly normal bilaterally General nose exam: Normal external nose present Eyes General: appearance normal, both eyes and all related structures Conjunctivae: conjunctivae normal Neck Neck: Yes full ROM and Yes no lymphadenopathy Resp Effort & Inspection: normal respiratory effort Auscultation: clear to auscultation bilaterally, crackles (mild) on the right in the lower lung faust, no rales, no rhonchi and no wheezes Cardio Rate: regular rate Rhythm: abnormal rhythm Skin General skin exam: no rashes or lesions noted Neuro General: patient oriented x3 Gait exam (Neuro): Normal gait present Extrem General: Yes normal to inspection, Yes full ROM and No edema Psych Affect: normal affect Attitude: cooperative Insight: Good insight present (Psych) Judgement: Good judgement present (Psych) Coding Level of Care Code Est Pt Level 3 (75110) Diagnoses Sinusitis J32.9 Atrial fibrillation with rapid ventricular response I48.91 ELI (obstructive sleep apnea) G47.33 Class 1 obesity with serious comorbidity and body mass index (BMI) of 33.0 to 33.9 in adult, unspecified obesity type E66.811; Z68.33 Obesity type: unspecified obesity type Obesity classification: adult class 1 (BMI 30 - 34.9) Serious obesity comorbidity presence: with serious comorbidity Body mass index: BMI 33.0-33.9 Hypertension, unspecified type I10 Hypertension type: unspecified Additional Codes PHQ-9 - 91228 - PHQ-9 Billing: Yes ([id number]) Assessment & Plan Assessment & Plan (1) Sinusitis: Code(s): J32.9 - Chronic sinusitis, unspecified Category: Medical Plan: Patient feels his symptoms have been improving but still does have quite a bit of phlegm and nasal discharge. Plan to continue doxycycline for 3 more days to ensure resolution. Advised patient to continue using Mucinex (2) Atrial fibrillation with rapid ventricular response: Code(s): I48.91 - Unspecified atrial fibrillation Category: Medical Plan: Patient reminded to reschedule cardiology appointment. Continue on carvedilol twice daily and full oral anticoagulation with Eliquis (3) ELI (obstructive sleep apnea): Code(s): G47.33 - Obstructive sleep apnea (adult) (pediatric) Category: Medical Plan: Uses CPAP faithfully at least 4 hours a night and benefits from this therapy. (4) Obesity: Comment: see above Code(s): E66.9 - Obesity, unspecified Category: Medical Qualifiers: Obesity type: unspecified obesity type Obesity classification: adult class 1 (BMI 30 - 34.9) Serious obesity comorbidity presence: with serious comorbidity Body mass index: BMI 33.0-33.9 Qualified Code(s): E66.811 - Obesity, class 1; Z68.33 - Body mass index [BMI] 33.0-33.9, adult Plan: Healthy diet and regular exercise is encouraged. (5) Hypertension: Code(s): I10 - Essential (primary) hypertension Category: Medical Qualifiers: Hypertension type: unspecified Qualified Code(s): I10 - Essential (primary) hypertension Plan: Continue on current blood pressure medication. Avoid salt intake and encourage healthy diet and regular exercise. Blood pressure elevated in the office today however he does have several blood pressure readings from his home unit which all demonstrate normal blood pressure less than 140/90 Plan The doxycycline prescription for sinusitis will be extended for an additional three days to ensure complete resolution of symptoms. The patient is advised to continue using Mucinex to aid in the expectoration of mucus and to monitor for any signs of fever or worsening symptoms. Blood pressure management will be monitored, with the patient encouraged to continue home monitoring and report any significant changes. The patient is reminded of the potential for DayQuil and NyQuil to elevate blood pressure and should use these medications cautiously. This note was constructed using voice recognition software. While every effort has been made to ensure accuracy and item processing clerk, still areas may have been included sometimes these areas may affect the content or meeting of the given symptoms. Total time spent caring for the patient today was 20 minutes. This includes time spent before the visit reviewing the chart, time spent during the visit, and time spent after the visit and documentation. Patient was informed and verbally consented to the use of an ambient scribe for clinic note documentation during this visit. Medications: Changed From doxycycline hyclate 100 mg PO BID 14 caps 0RF To doxycycline hyclate 100 mg PO BID 3 days 6 caps 0RF Discontinued benzonatate Discontinued Reason: Patient no longer taking 200 mg PO TID PRN 21 caps 0RF cough
[2025-04-16 10:58] VITALS: BP 158/98; PULSE 98
== END 2025-04-16 11:11 | disposition home or self-care (01) ==
LOC: HO.HMCH 10:04
DX: J32.9 Chronic sinusitis, unspecified (principal); I48.91 Unspecified atrial fibrillation; G47.33 Obstructive sleep apnea (adult) (pediatric); E66.811 Obesity, class 1; Z68.33 Body mass index [BMI] 33.0-33.9, adult; I10 Essential (primary) hypertension

== ENCOUNTER → 2025-04-16 10:03 | Outpatient (BNVA) | payer OTHER, SELFPAY | DX: G47.33 Obstructive sleep apnea (adult) (pediatric) (principal); I48.91 Unspecified atrial fibrillation; E66.9 Obesity, unspecified; I10 Essential (primary) hypertension; J32.9 Chronic sinusitis, unspecified; E66.811 Obesity, class 1; Z68.33 Body mass index [BMI] 33.0-33.9, adult | CPT/HCPCS: 96127 ==

== ENCOUNTER 2025-05-13 10:37 | Outpatient (REF) | payer OTHER, SELFPAY ==
--- NOTE | ~2025-05-13 | XR_ITS ---
EXAMINATION: XR PELVIS 1-2 VIEWS HISTORY: M25.559 - Pain in unspecified hip COMPARISON: Correlation is made to plain films of the hips dated 03/17/2025. FINDINGS: A single AP view of the pelvis is submitted. Osseous mineralization is normal. There is no fracture or dislocation. There is mild joint space narrowing of both hips. The sacroiliac joints are maintained. There is degenerative disc disease of the lower lumbar spine. The soft tissues are unremarkable. XR/XR pelvis 1-2V IMPRESSION: Mild narrowing of both hip joints. Electronically signed by: Chriss Boogie MD 05/13/2025 12:16 PM EDT
== END 2025-05-13 10:38 | disposition home or self-care (01) ==
LOC: HO.HOSX 10:37
PROVIDERS: Visit Provider Physician Assistant
DX: M16.0 Bilateral primary osteoarthritis of hip (principal); M25.551 Pain in right hip; M25.552 Pain in left hip; Z79.899 Other long term (current) drug therapy; Z79.1 Long term (current) use of non-steroidal anti-inflammatories (NSAID)
CPT/HCPCS: 20610; 72170; J1010; J2003

== ENCOUNTER 2025-05-13 11:42 | Outpatient (AMB) | payer OTHER, SELFPAY ==
--- NOTE | 2025-05-13 11:53 | A.OFFVIS_ITS ---
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 Patient was seen and referred by his PCP, Brent on 07/25/22 for B/L Hip arthritis. 03/17/25 an x ray of B/L hip was done/ordered by Dr: Noble CORBIN-C. Patient states that he has had this pain for 30 years now and had an MRI done of his hips about 25 years ago. He states that he would like to discuss injections but tried and failed physical therapy. Patient reports that he does not like to take pain medication or NSAIDs. Patient states that no numbness or tingling to report. X Rays done in office today. 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 He denies groin pain. Most of his pain is located on the lateral aspect of both hips. He has pain with prolonged standing long car rides and sleeping at night. He states over 25 years ago he had an injury and an MRI which was significant for labral tear. He had no surgical intervention for this. He is quite active and has been going to the gym proximally 6 days a week but states due to this hip pain he has been unable to maintain this. COUNTS INCLUDE 234 BEDS AT THE [facility] Medical History Obesity Atrial fibrillation Transaminitis Chronic GERD Insomnia Obesity Essential hypertension VSD (ventricular septal defect) Hypertension Surgical History History of colonoscopy (~09/22/22) History of recent dental procedure History of rectal polypectomy History of surgery on extremity History of appendectomy Family History Father No problems noted. Mother No problems noted. Brother Heart attack Family/Other Vascular disease Social History (Updated 05/13/25 @ 11:58 by Lilli Christie) Household Members: Spouse Housing: House Do you presently have visiting nurse or other home services: No Alcohol intake: current Alcohol intake frequency: a few times a month Patient Tobacco Use Status: Current someday Tobacco user Tobacco use type: Cigar e-Cigarette/Vaping Use: Never Used Second Hand Smoke Exposure: No service: No Current occupational status: employed Current occupation: Soon to be retired. Cognitive needs: No Hearing needs: No Vision needs: Yes (glasses) Review of Systems Const All systems reviewed & are unremarkable except as noted in HPI and below Physical Exam Vital Signs: BMI result Body Mass Index 32.4 Const General: cooperative and no acute distress Orientation/consciousness: patient oriented x3 Resp Effort & Inspection: normal respiratory effort and able to speak in complete sentences Cardio Peripheral pulses: Peripheral pulses 2+ throughout Neuro General: patient oriented x3 Extrem Other: bilat hip normal to inspection. No pain with ROM of the hip. Pain along the greater trochanter. No pain with hip flexion or abduction.There is tenderness along the si joint, Negative SLR. NVI. Office Procedures AMB Joint Injection/Aspiration Joint Injection/Aspiration Details: bilat hip bursa Prep: site was prepped using aseptic technique, ethochloride spray was applied and injection warnings given Injected: 80 mg of, DepoMedrol, with 8 mL of and 1% plain lidocaine Procedure: The patient tolerated the procedure well and there was some relief with the local anesthesia Coding 56598 - Glenohumeral/Tronchanteric Bursa/Intraarticular Procedure code (CPT) selection complete Results Reviewed Results Reviewed: Xrays were obtained in the office today and personally reviewed by me of bilat hip show mild oa Assessment & Plan Assessment & Plan (1) Osteoarthritis, hip, bilateral: Code(s): M16.0 - Bilateral primary osteoarthritis of hip Category: Medical Plan: We discussed options today, which include steroid injection. The patient did consent to move forward with bilateral hip bursa injection, which was tolerated well.? I recommended rest, ice and elevation and OTC antiinflammatories prn for discomfort. If symptoms persist over the next 6-8 weeks, they will contact our office, otherwise, prn Orders: Orders XR pelvis 1-2V Today M25.559 - Pain in unspecified hip Coding Level of Care Code New Pt Level 3 (80752) Complex EM visit Add On G2211 Diagnoses Osteoarthritis, hip, bilateral M16.0 CPT Codes Coding - Joint 7: 38971 - Glenohumeral/Tronchanteric Bursa/Intraarticular ([id number])
[2025-05-13 11:54] VITALS: BMI 32.4
== END 2025-05-13 13:18 | disposition home or self-care (01) ==
LOC: HO.HOS 11:42
PROVIDERS: Visit Provider Physician Assistant
DX: M16.0 Bilateral primary osteoarthritis of hip (principal)
CPT/HCPCS: 20610; 99203

== ENCOUNTER → 2025-05-13 11:47 | Outpatient (BNV) | payer OTHER, SELFPAY | PROVIDERS: Visit Provider Radiology Diagnostic Radiology | DX: M25.551 Pain in right hip (principal); M25.552 Pain in left hip | CPT/HCPCS: 72170 ==

== ENCOUNTER 2025-06-23 09:19 | Outpatient (AMB) | payer OTHER, SELFPAY ==
--- NOTE | 2025-06-23 09:24 | A.OFFPC_ITS ---
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: No Accompanied by: Self / Same As Patient Allergies amlodipine Adverse Reaction (Unknown, Verified 06/23/25 10:02) Leg swelling Medication List - Last Reconciled 06/23/25 by IONA Suarez apixaban 5 mg PO BID carvedilol 12.5 mg PO BID doxycycline hyclate 100 mg PO BID 3 days hydrochlorothiazide 25 mg PO DAILY lansoprazole 15 mg PO DAILY loratadine (Allergy Relief (loratadine)) 10 mg PO DAILY psyllium husk (Metamucil) 0.8 grams PO BEDTIME tadalafil 20 mg PO DAILY zolpidem 10 mg PO BEDTIME PRN Tobacco use date assessed: 06/23/25 Fall risk assessment: No Falls in past year Last assessed Fall Risk: 06/23/25 Dental Screening Dental Screen Date: 06/23/25 Did you have a dental visit in the last 12 months?: Yes Did you have a dental problem in the last 6 months where you did not have access to dental care?: No Was dental information given to patient?: Patient has dentist HPI 3 months HPI Details The patient is a 64-year-old male presenting with concerns regarding blood pressure management and potential atrial fibrillation. The patient reports fluctuating blood pressure readings, which he monitors at home as advised. He notes that his blood pressure tends to be higher after consuming coffee, which he had 3 large cups this morning before appointment. He has been advised to monitor his blood pressure without prior caffeine intake to obtain more accurate readings. The patient has multiple blood pressure readings on his phone with systolic in the mid-120s. Taken in the evening time when the patient is relaxing. The patient also mentions experiencing puffiness around the eyes, which he associates with allergies. He is scheduled to receive allergy shots and believes this may alleviate the symptoms. The patient uses a CPAP machine for sleep apnea and takes half an Ambien to aid sleep. He reports sleeping approximately five to six hours per night. The patient is currently taking Eliquis, a medication for atrial fibrillation, and adheres to his prescribed regimen. PENDING SALE TO [facility] Medical History (Updated 06/23/25 @ 21:47 by IONA Suarez) Obesity Atrial fibrillation Transaminitis Chronic GERD Insomnia Obesity Essential hypertension VSD (ventricular septal defect) Hypertension Surgical History History of colonoscopy (~09/22/22) History of recent dental procedure History of rectal polypectomy History of surgery on extremity History of appendectomy Family History Father No problems noted. Mother No problems noted. Brother Heart attack Family/Other Vascular disease Social History Household Members: Spouse Housing: House Do you presently have visiting nurse or other home services: No Alcohol intake: current Alcohol intake frequency: a few times a month Patient Tobacco Use Status: Current someday Tobacco user Tobacco use type: Cigar e-Cigarette/Vaping Use: Never Used Second Hand Smoke Exposure: No service: No Current occupational status: employed Current occupation: Soon to be retired. Cognitive needs: No Hearing needs: No Vision needs: Yes (glasses) Questionnaire PHQ-9 Over the last 2 weeks, how often have you been bothered by any of the following problems? 1. Little interest or pleasure in doing things: not at all 2. Feeling down, depressed, or hopeless: not at all 3. Trouble falling or staying asleep, or sleeping too much: not at all 4. Feeling tired or having little energy: not at all 5. Poor appetite or overeating: not at all 6. Feeling bad about yourself - or that you are a failure or have let yourself or your family down: not at all 7. Trouble concentrating on things, such as reading the newspaper or watching television: not at all 8. Moving or speaking so slowly that other people could have noticed. Or the opposite - being so fidgety or restless that you have been moving around a lot more than usual: not at all 9. Thoughts that you would be better off or of hurting yourself in some way: not at all Total score: 0 Depression Screening Interpretation: Negative Depression Screening Done: Yes Source: Developed by Drs. Chriss Alvarado, Franci Clarke, Christiano Tsang and colleagues, with an educational emelina from [employer]. Thrive Questionnaire Date Thrive assessed: 06/23/25 I am a: Patient What is your living situation today?: I have a steady place to live Within the past 12 months, did the food you bought not last and you didn't have the money to get more?: Never true Within the past 12 months, did you worry whether your food would run out before you got money to buy more?: Never true Do you have trouble paying for medicines?: No Do you have trouble getting transportation to medical appointments?: No Do you have trouble paying your heating and electricity bill?: No Do you have trouble taking care of your child, family member or friend?: No Do you have trouble with day-to-day activities such as bathing, preparing meals, shopping, managing finances, etc.?: No Are you currently unemployed and looking for a job?: No Are you interested in more education?: No Please select the resources that you would like help with: None Currently or been in a relationship where the following occur: No concerns reported THRIVE Score: 0 AUDIT C Alcohol Use Questionnaire (AUDIT-C) 1. How often do you have a drink containing alcohol?: 2-4 times a month 2. How many drinks containing alcohol do you have on a typical day when you are drinking?: 1 or 2 3. How often do you have six or more drinks on one occasion?: Never Total Score: 2 SINDHU-7 AMB Questionnaire SINDHU-7 Date SINDHU - 7 assessed: 06/23/25 Feeling nervous, anxious, or on edge: 0 = Not at all Not being able to stop or control worryin = Not at all Worrying too much about different things: 0 = Not at all Trouble relaxin = Not at all Being so restless that it is hard to sit still: 0 = Not at all Becoming easily annoyed or irritable: 0 = Not at all Feeling afraid as if something awful might happen: 0 = Not at all Total SINDHU-7 score (0-4 normal; 5-9 mild; 10-14 moderate; 15-21 severe): 0 Source: Developed by Franci ByrdW. Vince, Christiano Tsang and colleagues, with an educational emelina from [employer]. Review of Systems Const Denies body aches, Denies chills, Denies fever(s), Denies headache(s) and Denies poor appetite Eyes Reports no additional complaints and Reports other (puffiness around eyelids) ENT Denies dysphagia, Denies dizziness, Denies headache(s) and Denies odynophagia Card Denies chest pain, Denies syncope, Denies edema, Denies lightheadedness and Denies dyspnea Resp Denies cough and Denies dyspnea GI Denies abdominal pain, Denies constipation, Denies dysphagia, Denies diarrhea, Denies nausea, Denies odynophagia and Denies vomiting Reports no additional complaints Musc Reports no additional complaints and Denies abnormal gait Skin/Breast Reports system reviewed and no additional complaints, except as documented Neuro Denies Abnormal speech present, Denies abnormal gait, Denies dizziness, Denies syncope and Denies headache(s) Psych Reports no additional complaints Physical exam (Primary Care) Vital Signs: Last Vital Signs Temp 97.1 F 06/23/25 09:25 Pulse 69 06/23/25 09:25 Resp 18 06/23/25 09:25 BP 170/110 H 06/23/25 09:25 Pulse Ox 98 06/23/25 09:25 Oxygen Delivery Method Room Air 06/23/25 09:25 BMI result Body Mass Index 33.0 Tobacco/Smoking Status: Tobacco use Status Tobacco use date assessed 06/23/25 06/23/25 09:34 Patient Tobacco Use Status Current someday Tobacco 06/23/25 09:34 Tobacco use type Cigar 06/23/25 09:34 e-Cigarette/Vaping Use Never Used 06/23/25 09:34 PHQ-9: PHQ-9 Score PHQ-9: Total score 0 06/23/25 17:05 Depression Screening Interpretation: Negative Thrive Assessment: Date of Thrive Assessment Date Thrive assessed 06/23/25 06/23/25 09:34 Currently or been in a relationship where the following occur: No concerns reported Const General: healthy appearing, no acute distress, alert and awake Nutritional Appearance: well nourished Orientation/consciousness: oriented to person, oriented to place and oriented to time HENMT Ears: TM's normal bilaterally General nose exam: Normal nasal mucous membranes and turbinates present Eyes Periorbital: periorbital findings abnormal (Puffiness) Conjunctivae: conjunctivae normal Sclerae: sclerae normal Pupils: Equal, round and reactive pupils present Neck Neck: Yes no lymphadenopathy and Yes no JVD Thyroid: Thyroid normal Carotids: no bruits Resp Effort & Inspection: normal respiratory effort and not tachypneic Auscultation: no crackles, no rales, no rhonchi and no wheezes Cardio Rate: regular rate Rhythm: abnormal rhythm irregularly irregular Heart sounds: no murmurs and normal S1 and S2 GI Palpation (GI): Soft to palpation, nontender, no hepatomegaly and no splenomegaly Auscultation: normal bowel sounds Skin General skin exam: no rashes or lesions noted and dry skin Neuro General: oriented to person, oriented to place and oriented to time Cranial nerves: Yes Equal, round and reactive pupils present Speech: No Abnormal speech present Gait exam (Neuro): Normal gait present Motor exam (neuro): no tremor noted Extrem Right upper extremity: full ROM Left upper extremity: full ROM Right lower extremity: full ROM; no edema Left lower extremity: full ROM; no edema Psych Mental Status: mental status grossly normal Speech and movement: Normal speech and movement present Affect: normal affect Attitude: cooperative Thought process: Normal thought process present Results Reviewed Results Reviewed: Laboratory Tests 04/08/25 07:14 Sodium 137 Potassium 3.6 Chloride 98 Carbon Dioxide 29 Anion Gap 14 BUN 7 L Creatinine 0.82 Estim Creat Clear Calc 99.1 Estimated GFR > 60 Random Glucose 110 Calcium 9.2 Total Bilirubin 0.8 AST 35 ALT 35 Alkaline Phosphatase 54 Troponin I High Sens < 2.7 B-Natriuretic Peptide 248 H Total Protein 6.8 Albumin 4.2 Coding Level of Care Code Est Pt Level 3 (89247) Diagnoses Hypertension, unspecified type I10 Hypertension type: unspecified Longstanding persistent atrial fibrillation I48.11 Atrial fibrillation type: longstanding persistent Class 1 obesity with serious comorbidity and body mass index (BMI) of 33.0 to 33.9 in adult, unspecified obesity type E66.811; Z68.33 Obesity type: unspecified obesity type Obesity classification: adult class 1 (BMI 30 - 34.9) Serious obesity comorbidity presence: with serious comorbidity Body mass index: BMI 33.0-33.9 Sinusitis, unspecified chronicity, unspecified location J32.9 Sinusitis location: unspecified location Chronicity: unspecified ELI (obstructive sleep apnea) G47.33 Osteoarthritis of both hips, unspecified osteoarthritis type M16.0 Osteoarthritis type: unspecified Insomnia, unspecified type G47.00 Insomnia type: unspecified Time Spent (min) 36 Assessment & Plan Assessment & Plan (1) Hypertension: Code(s): I10 - Essential (primary) hypertension Category: Medical Qualifiers: Hypertension type: unspecified Qualified Code(s): I10 - Essential (primary) hypertension Plan: Blood pressure elevated at 170/110. Patient reports medication compliance but reports that he had just taken the medication prior to coming to this visit. In addition, he had 3 large cups of coffee this morning before appointment. Patient reports that this is his normal routine to get him going. Reports that he usually checks his blood pressure in the evening after work and his blood pressure usually shows a systolic in the 120s. Patient usually have all his coffee in the morning back to back and none throughout the day. This could explain why later on in the evening his blood pressure is much lower. Patient should continue monitoring his blood pressure at home and bring his blood pressure machine at his next visit for comparison of blood pressure readings. Continue carvedilol 12.5 mg b.i.d., hydrochlorothiazide 25 mg daily. (2) Atrial fibrillation: Code(s): I48.91 - Unspecified atrial fibrillation Category: Medical Qualifiers: Atrial fibrillation type: longstanding persistent Qualified Code(s): I48.11 - Longstanding persistent atrial fibrillation Plan: Patient is in AFib. Denies any chest pain or shortness of breath. Encouraged the patient to cut down on his caffeine intake. Continue carvedilol 12.5 mg b.i.d., apixaban 5 mg b.i.d. (3) Obesity: Comment: see above Code(s): E66.9 - Obesity, unspecified Category: Medical Qualifiers: Obesity type: unspecified obesity type Obesity classification: adult class 1 (BMI 30 - 34.9) Serious obesity comorbidity presence: with serious comorbidity Body mass index: BMI 33.0-33.9 Qualified Code(s): E66.811 - Obesity, class 1; Z68.33 - Body mass index [BMI] 33.0-33.9, adult Plan: Encouraged to exercise for at least 30 minutes a day/5 days a week Healthy eating discussed. Encouraged to eat fruits/vegetables, protein- fish/baked chicken, and to avoid salty/fried foods, sweets, caffeine and carbohydrates. Encouraged to increase water intake 6-8 glasses a day (4) Sinusitis: Code(s): J32.9 - Chronic sinusitis, unspecified Category: Medical Qualifiers: Sinusitis location: unspecified location Chronicity: unspecified Qualified Code(s): J32.9 - Chronic sinusitis, unspecified Plan: Patient has a history of sinusitis. Reports puff in his around eyes. He is going to get his allergy injection after this appointment. Patient to monitor puffiness in contact office if this continues. (5) ELI (obstructive sleep apnea): Code(s): G47.33 - Obstructive sleep apnea (adult) (pediatric) Category: Medical Plan: Continue CPAP (6) Osteoarthritis, hip, bilateral: Code(s): M16.0 - Bilateral primary osteoarthritis of hip Category: Medical Qualifiers: Osteoarthritis type: unspecified Qualified Code(s): M16.0 - Bilateral primary osteoarthritis of hip Plan: Patient had x-ray to bilateral hips on 03/17/2025. He does have a history OA. Was seen by Orthopedics on 05/13/2025 and received injection in bilateral hips with positive effects no complain of pain today. (7) Insomnia: Code(s): G47.00 - Insomnia, unspecified Category: Medical Qualifiers: Insomnia type: unspecified Qualified Code(s): G47.00 - Insomnia, unspecified Plan: Sleep hygiene: Exercise regularly, but not within 4 hour of bedtime. Limit fluid intake and avoid large meals in the evening hours. Limit overall caffeine, tobacco, and alcohol intake; no night cap. Maintain a regular sleep- wake cycle without naps in the daytime. Lie down to sleep only when feeling sleepy; leave the bed if unable to fall asleep within 20 minutes; stay in bed for only the hours actually sleeping(but not less than 5 hour in 24 hours). Continue Ambien 10 mg at bedtime p.r.n. Plan Follow up in 3 months Orders: Orders B Type Natriuretic Peptide 3 Months G47.33 - Obstructive sleep apnea (adult) (pediatric), I10 - Essential (primary) hypertension, I48.11 - Longstanding persistent atrial fibrillation Comprehensive [place]. Panel Fast 3 Months G47.33 - Obstructive sleep apnea (adult) (pediatric), I10 - Essential (primary) hypertension, I48.11 - Longstanding persistent atrial fibrillation UA CC w/rflx Micro + Cult 3 Months G47.33 - Obstructive sleep apnea (adult) (pediatric), I10 - Essential (primary) hypertension, I48.11 - Longstanding persistent atrial fibrillation Vitamin D 25-OH Total 3 Months G47.33 - Obstructive sleep apnea (adult) (pediatric), I10 - Essential (primary) hypertension, I48.11 - Longstanding persistent atrial fibrillation Complete Blood Count Auto Diff 3 Months G47.33 - Obstructive sleep apnea (adult) (pediatric), I10 - Essential (primary) hypertension, I48.11 - Longstanding persistent atrial fibrillation TSH reflex Free T4 3 Months G47.33 - Obstructive sleep apnea (adult) (pediatric), I10 - Essential (primary) hypertension, I48.11 - Longstanding persistent atrial fibrillation
[2025-06-23 09:25] VITALS: BP 170/110; PULSE 69; RESP 18; TEMP 36.2; O2SAT 98; BMI 33.0
== END 2025-06-23 10:56 | disposition home or self-care (01) ==
LOC: HO.HMCH 09:20
DX: I10 Essential (primary) hypertension (principal); I48.11 Longstanding persistent atrial fibrillation; E66.811 Obesity, class 1; Z68.33 Body mass index [BMI] 33.0-33.9, adult; J32.9 Chronic sinusitis, unspecified; G47.33 Obstructive sleep apnea (adult) (pediatric); M16.0 Bilateral primary osteoarthritis of hip; G47.00 Insomnia, unspecified

== ENCOUNTER 2025-06-23 10:27 | Outpatient (AMB) | payer OTHER, SELFPAY | END 2025-06-23 10:41 | disposition home or self-care (01) | LOC: HO.HMGAL 10:27 | PROVIDERS: Visit Provider Registered Nurse Emergency | DX: J30.89 Other allergic rhinitis (principal) | CPT/HCPCS: 95117; 95165 ==

== ENCOUNTER 2025-07-22 10:38 | Outpatient (AMB) | payer OTHER, SELFPAY | END 2025-07-22 10:49 | disposition home or self-care (01) | LOC: HO.HMGAL 10:38 | PROVIDERS: Visit Provider Registered Nurse Emergency | DX: J30.89 Other allergic rhinitis (principal) | CPT/HCPCS: 95117; 95165 ==

== ENCOUNTER 2025-08-10 14:19 | Outpatient (AMB) | payer OTHER, SELFPAY | END 2025-08-10 14:22 | disposition home or self-care (01) | LOC: HO.HMGAL 14:19 | PROVIDERS: Visit Provider Registered Nurse Emergency | DX: J30.89 Other allergic rhinitis (principal) | CPT/HCPCS: 95117; 95165 ==

== ENCOUNTER 2025-08-19 14:20 | Outpatient (AMB) | payer OTHER, SELFPAY | END 2025-08-19 14:20 | disposition home or self-care (01) | LOC: HO.HMGAL 14:20 | PROVIDERS: Visit Provider Registered Nurse Emergency | DX: J30.89 Other allergic rhinitis (principal) | CPT/HCPCS: 95117; 95165 ==

== ENCOUNTER 2025-09-14 13:57 | Outpatient (AMB) | payer OTHER, SELFPAY | END 2025-09-14 13:57 | disposition home or self-care (01) | LOC: HO.HMGAL 13:57 | PROVIDERS: Visit Provider Registered Nurse Emergency | DX: J30.89 Other allergic rhinitis (principal) | CPT/HCPCS: 95117; 95165 ==

== ENCOUNTER 2025-09-24 09:25 | Outpatient (AMB) | payer OTHER, SELFPAY ==
--- NOTE | 2025-09-24 09:28 | A.OFFPC_ITS ---
Vital Signs 09/24/25 09:29 Height 5 ft 7 in Weight 211 lb 8 oz BMI 33.1 BP 180/92 H Blood Pressure Location Lt brachial Position Sitting Respiration 18 Pulse 110 H Pulse Source Pulse Oximeter Temp Source Temporal Artery Scan Pulse Oximetry (%) 98 Oxygen Delivery Method Room Air Intake Visit Reasons: 3 months htn/afib [employer] Required: No Accompanied by: Self / Same As Patient Allergies amlodipine Adverse Reaction (Unknown, Verified 09/24/25 10:06) Leg swelling Medication List - Last Reconciled 09/24/25 by IONA Suarez apixaban 5 mg PO BID azithromycin For 250 mg dose pack: take 500 mg today (day 1), then 250 mg for 4 days (days 2-5) PO carvedilol 12.5 mg PO BID doxycycline hyclate 100 mg PO BID 3 days hydrochlorothiazide 25 mg PO DAILY lansoprazole 15 mg PO DAILY loratadine (Allergy Relief (loratadine)) 10 mg PO DAILY psyllium husk (Metamucil) 0.8 grams PO BEDTIME tadalafil 20 mg PO DAILY zolpidem 10 mg PO BEDTIME PRN Tobacco use date assessed: 09/24/25 Last assessed Fall Risk: 09/24/25 Dental Screening Dental Screen Date: 09/24/25 HPI 3 months htn/afib HPI Details Needs a copy of the blood work leaving 11/04/25February 4 o5 for [place] HPI Comments History of Present Illness Details The patient is a 64 year old individual presenting for follow-up on chronic conditions, including hypertension, and to obtain follow up blood work. The arlene parnell has a history of high blood pressure and Afib, with home readings reported mostly controlled with some moments of elevated blood pressure. The patient drinks a large amount of coffee that might be affecting his blood pressure when he takes it at home. The patient did not take the prescribed carvedilol today due to fasting for blood work, based on the recommendation to be taken with food. Medications taken this morning include Eliquis, generic Claritin, lansoprazole, and hydrochlorothiazide. The patient has a 13 to 14-year history of obstructive sleep apnea and is dependent on a CPAP machine, which the patient reports being unable to sleep without. The initial diagnosis was prompted by the patient's observing prolonged pauses in breathing during sleep, and a subsequent sleep study confirmed periods of apneic episodes. The current CPAP machine is 11 years old and described as beat up, and the patient is seeking a replacement without undergoing another sleep study. Health Maintenance The patient will proceed to get fasting blood work done today. The patient was asked to share the results upon receipt. A follow-up appointment is scheduled for February or March to accommodate the patient's winter travel schedule to [place]. Social History - The patient travels to a second home [facility] for the winter, from approximately November 03 to early February. Results - Labs: The patient is scheduled for blo od work today; results are pending. - Prior Sleep Study: A past sleep study confirmed obstructive sleep apnea, noting episodes where the patient's heart stopped. [facility] Medical History Obesity Atrial fibrillation Transaminitis Chronic GERD Insomnia Obesity Essential hypertension VSD (ventricular septal defect) Hypertension Surgical History History of colonoscopy (~09/22/22) History of recent dental procedure History of rectal polypectomy History of surgery on extremity History of appendectomy Family History Father No problems noted. Mother No problems noted. Brother Heart attack Family/Other Vascular disease Social History Household Members: Spouse Housing: House Do you presently have visiting nurse or other home services: No Alcohol intake: current Alcohol intake frequency: a few times a month Patient Tobacco Use Status: Current someday Tobacco user Tobacco use type: Cigar e-Cigarette/Vaping Use: Never Used Second Hand Smoke Exposure: No service: No Current occupational status: employed Current occupation: Soon to be retired. Cognitive needs: No Hearing needs: No Vision needs: Yes (glasses) Questionnaire PHQ-9 Over the last 2 weeks, how often have you been bothered by any of the following problems? 1. Little interest or pleasure in doing things: not at all 2. Feeling down, depressed, or hopeless: not at all 3. Trouble falling or staying asleep, or sleeping too much: not at all 4. Feeling tired or having little energy: not at all 5. Poor appetite or overeating: not at all 6. Feeling bad about yourself - or that you are a failure or have let yourself or your family down: not at all 7. Trouble concentrating on things, such as reading the newspaper or watching te levision: not at all 8. Moving or speaking so slowly that other people could have noticed. Or the opposite - being so fidgety or restless that you have been moving around a lot more than usual: not at all 9. Thoughts that you would be better off or of hurting yourself in some way: not at all Total score: 0 Depression Screening Interpretation: Negative Depression Screening Done: Yes Source: Developed by Drs. Chriss Alvarado, Franci Clarke, Christiano Tsang and colleagues, with an educational emelina from [employer]. Thrive Questionnaire Date Thrive assessed: 09/24/25 I am a: Patient What is your living situation today?: I have a steady place to live Within the past 12 months, did the food you bought not last and you didn't have the money to get more?: Never true Within the past 12 months, did you worry whether your food would run out before you got money to buy more?: Never true Do you have trouble paying for medicines?: No Do you have trouble getting transportation to medical appointments?: No Do you have trouble paying your heating and electricity bill?: No Do you have trouble taking care of your child, family member or friend?: No Do you have trouble with day-to-day activities such as bathing, preparing meals, shopping, managing finances, etc.?: No Are you currently unemployed and looking for a job?: No Are you interested in more education?: No Please select the resources that you would like help with: None Currently or been in a relationship where the following occur: No concerns reported THRIVE Score: 0 AUDIT C Alcohol Use Questionnaire (AUDIT-C) 1. How often do you have a drink containing alcohol?: 2-4 times a month 2. How many drinks containing alcohol do you have on a typical day when you are drinking?: 1 or 2 3. How often do you have six or more drinks on one occasion?: Never Total Score: 2 SINDHU-7 AMB Questionnaire SINDHU-7 Date SINDHU - 7 assessed: 06/23/25 Feeling nervous, anxious, or on edge: 0 = Not at all Not being able to stop or control worryin = Not at all Worrying too much about different things: 0 = Not at all Trouble relaxin = Not at all Being so restless that it is hard to sit still: 0 = Not at all Becoming easily annoyed or irritable: 0 = Not at all Feeling afraid as if something awful might happen: 0 = Not at all Total SINDHU-7 score (0-4 normal; 5-9 mild; 10-14 moderate; 15-21 severe): 0 Source: Developed by Drs. Chriss Alvarado, Franci Clarke, Christiano Tsang and colleagues, with an educational emelina from [employer]. Review of Systems Narrative Review of Systems - General: Reports sleeping well with CPAP. - Musculoskeletal: Denies calf pain. - Respiratory: Reports a history of apnea (breathing cessation) during sleep. Const Denies body aches, Denies chills, Denies fever(s), Denies headache(s) and Denies poor appetite Eyes Reports no additional complaints and Reports other (puffiness around eyelids) ENT Denies dysphagia, Denies dizziness, Denies headache(s) and Denies odynophagia Card Denies chest pain, Denies syncope, Denies edema, Denies lightheadedness and Denies dyspnea Resp Denies cough and Denies dyspnea GI Denies abdominal pain, Denies constipation, Denies dysphagia, Denies diarrhea, Denies nausea, Denies odynophagia and Denies vomiting Reports no additional complaints Musc Reports no additional complaints and Denies abnormal gait Skin/Breast Reports system reviewed and no additional complaints, except as documented Neuro Denies Abnormal speech present, Denies abnormal gait, Denies dizziness, Denies syncope and Denies headache(s) Psych Reports no additional complaints Physical exam (Primary Care) Vital Signs: Last Vital Signs Pulse 110 H 09/24/25 09:29 Resp 18 09/24/25 09:29 BP 180/92 H 09/24/25 09:29 Pulse Ox 98 09/24/25 09:29 Oxygen Delivery Method Room Air 09/24/25 09:29 BMI result Body Mass Index 33.1 Tobacco/Smoking Status: Tobacco use Status Tobacco use date assessed 09/24/25 09/24/25 09:30 Patient Tobacco Use Status Current someday Tobacco 09/24/25 09:30 Tobacco use type Cigar 09/24/25 09:30 e-Cigarette/Vaping Use Never Used 09/24/25 09:30 PHQ-9: PHQ-9 Score PHQ-9: Total score 0 09/24/25 10:07 Depression Screening Interpretation: Negative Thrive Assessment: Date of Thrive Assessment Date Thrive assessed 09/24/25 09/24/25 09:30 Currently or been in a relationship where the following occur: No concerns reported Narrative Physical Exam - Vitals: Blood pressure is elevated. - Cardiovascular: Auscultation reveals a heart rhythm consistent with atrial fibrillation. - Extremities: Examination of calves is negative for pain. Const General: healthy appearing, no acute distress, alert and awake Nutritional Appearance: well nourished Orientation/consciousness: oriented to person, oriented to place and oriented to time HENMT Ears: TM's normal bilaterally General nose exam: Normal nasal mucous membranes and turbinates present Eyes Conjunctivae: conjunctivae normal Sclerae: sclerae normal Pupils: Equal, round and reactive pupils present Neck Neck: Yes no lymphadenopathy and Yes no JVD Thyroid: Thyroid normal Carotids: no bruits Resp Effort & Inspection: normal respiratory effort and not tachypneic Auscultation: no crackles, no rales, no rhonchi and no wheezes Cardio Rate: regular rate Rhythm: abnormal rhythm irregularly irregular Heart sounds: no murmurs and normal S1 and S2 GI Palpation (GI): Soft to palpation, nontender, no hepatomegaly and no splenomegaly Auscultation: normal bowel sounds Skin General skin exam: no rashes or lesions noted and dry skin Neuro General: oriented to person, oriented to place and oriented to time Cranial nerves: Yes Equal, round and reactive pupils present Speech: No Abnormal speech present Gait exam (Neuro): Normal gait present Motor exam (neuro): no tremor noted Extrem Right upper extremity: full ROM Left upper extremity: full ROM Right lower extremity: full ROM; no edema Left lower extremity: full ROM; no edema Psych Mental Status: mental status grossly normal Speech and movement: Normal speech and movement present Affect: normal affect Attitude: cooperative Thought process: Normal thought process present Coding Level of Care Code Est Pt Level 4 (35430) Diagnoses Hypertension, unspecified type I10 Hypertension type: unspecified Longstanding persistent atrial fibrillation I48.11 Atrial fibrillation type: longstanding persistent Class 1 obesity with serious comorbidity and body mass index (BMI) of 33.0 to 33.9 in adult, unspecified obesity type E66.811; Z68.33 Obesity type: unspecified obesity type Obesity classification: adult class 1 (BMI 30 - 34.9) Serious obesity comorbidity presence: with serious comorbidity Body mass index: BMI 33.0-33.9 Sinusitis, unspecified chronicity, unspecified location J32.9 Sinusitis location: unspecified location Chronicity: unspecified ELI (obstructive sleep apnea) G47.33 Osteoarthritis of both hips, unspecified osteoarthritis type M16.0 Osteoarthritis type: unspecified Insomnia, unspecified type G47.00 Insomnia type: unspecified Time Spent (min) 37 Assessment & Plan Assessment & Plan (1) Hypertension: Code(s): I10 - Essential (primary) hypertension Category: Medical Qualifiers: Hypertension type: unspecified Qualified Code(s): I10 - Essential (primary) hypertension Plan: Blood pressure 180/92. The patient has not taken his carvedilol as yet due to fasting for blood work. Encouraged to take medication soon as he completes his blood work and to recheck his blood pressure at home an hour after taking the medication. Contact the office if his blood pressure is not improving. See below for further details. (2) Atrial fibrillation: Code(s): I48.91 - Unspecified atrial fibrillation Category: Medical Qualifiers: Atrial fibrillation type: longstanding persistent Qualified Code(s): I48.11 - Longstanding persistent atrial fibrillation Plan: Patient is in AFib. Denies any chest pain or shortness of breath. Encouraged the patient to cut down on his caffeine intake. Continue carvedilol 12.5 mg b.i.d., apixaban 5 mg b.i.d. (3) Obesity: Comment: see above Code(s): E66.9 - Obesity, unspecified Category: Medical Qualifiers: Obesity type: unspecified obesity type Obesity classification: adult class 1 (BMI 30 - 34.9) Serious obesity comorbidity presence: with serious comorbidity Body mass index: BMI 33.0-33.9 Qualified Code(s): E66.811 - Obesity, class 1; Z68.33 - Body mass index [BMI] 33.0-33.9, adult Plan: Encouraged to exercise for at least 30 minutes a day/5 days a week Healthy eating discussed. Encouraged to eat fruits/vegetables, protein- fish/baked chicken, and to avoid salty/fried foods, sweets, caffeine and carbohydrates. Encouraged to increase water intake 6-8 glasses a day (4) Sinusitis: Code(s): J32.9 - Chronic sinusitis, unspecified Category: Medical Qualifiers: Sinusitis location: unspecified location Chronicity: unspecified Qualified Code(s): J32.9 - Chronic sinusitis, unspecified Plan: Patient has a history of sinusitis. Reports puff in his around eyes. He gets injections for allergy intermittently. 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 He does have a history OA. Was seen by Orthopedics on 05/13/2025 and received injection in bilateral hips with positive effects no complain of pain today. (7) Insomnia: Code(s): G47.00 - Insomnia, unspecified Category: Medical Qualifiers: Insomnia type: unspecified Qualified Code(s): G47.00 - Insomnia, unspecified Plan: Sleep hygiene: Exercise regularly, but not within 4 hour of bedtime. Limit fluid intake and avoid large meals in the evening hours. Limit overall caffeine, tobacco, and alcohol intake; no night cap. Maintain a regular sleep- wake cycle without naps in the daytime. Lie down to sleep only when feeling sleepy; leave the bed if unable to fall asleep within 20 minutes; stay in bed for only the hours actually sleeping(but not less than 5 hour in 24 hours). Continue Ambien 10 mg at bedtime p.r.n. Plan Plan Patient was informed and verbally consented to the use of an ambient scribe for clinic note documentation during this visit. 1. Hypertension The patient's blood pressure is elevated, likely due to a missed morning dose of carvedilol. The patient was educated that carvedilol can be taken on an empty stomach and that taking it with food only slows absorption. The patient was instructed to take the missed dose as soon as possible and monitor blood pressure at home one hour after ingestion to ensure it comes down. If blood pressure remains high, a dose increase will be considered. 2. Atrial Fibrillation The heart rhythm is consistent with atrial fibrillation. The patient was advised to continue Eliquis. Management of blood pressure with carvedilol is crucial for rate control. 3. Obstructive Sleep Apnea The patient needs a replacement for an 11-year-old CPAP machine and wants to avoid a new sleep study. Contact information for two durable medical equipment companies, [employer] and [email or web address], was provided to the patient to attempt to acquire a new machine directly. If this approach is unsuccessful, a referral to a sleep medicine specialist will be considered. Discussion Notes I discussed with the patient that the elevated blood pressure and heart rhythm consistent with atrial fibrillation were likely related to the missed dose of carvedilol. I clarified the misconception about carvedilol, explaining that taking it with food slows its absorption but is not mandatory. I advised the patient to monitor blood pressure at home after taking the medication and to contact me if it remains high, as we may need to adjust the dosage. Regarding the need for a new CPAP machine, I provided the patient with contact information for two medical equipment companies, [employer] and [email or web address], to try and obtain a new device without a repeat sleep study. I explained that if this is not successful, a referral to a sleep medicine specialist may be necessary. We scheduled a follow-up appointment for February or March to align with the patient's return from [place]. Patient Instructions - Go next door to have your blood work done today. - Take your carvedilol medication as soon as you can. - After taking your blood pressure medication, check your blood pressure at home in about an hour to see if it has gone down. - Please let the office know if your blood pressure continues to be high. - Contact the two medical supply companies ([employer] and [email or web address]) to try to get a new CPAP machine. - Send a copy of your blood work results when you receive them. - Your next follow-up appointment is scheduled for February of next year.
[2025-09-24 09:29] VITALS: BP 180/92; PULSE 110; RESP 18; O2SAT 98; BMI 33.1
== END 2025-09-24 10:33 | disposition home or self-care (01) ==
LOC: HO.HMCH 09:26
DX: I10 Essential (primary) hypertension (principal); I48.11 Longstanding persistent atrial fibrillation; E66.811 Obesity, class 1; Z68.33 Body mass index [BMI] 33.0-33.9, adult; J32.9 Chronic sinusitis, unspecified; G47.33 Obstructive sleep apnea (adult) (pediatric); M16.0 Bilateral primary osteoarthritis of hip; G47.00 Insomnia, unspecified

== ENCOUNTER 2025-09-24 09:25 | Outpatient (REF) | payer OTHER, SELFPAY ==
[2025-09-24 10:51] LABS: MANUAL DIFF FLAG NO
[2025-09-24 11:23] LABS: Hematocrit 47.2 % (42.0-52.0); Hemoglobin 16.4 g/dl (14.0-18.0); Imm Gran Abs Auto 0.04 X10*3/uL (0.00-0.03); Imm Gran Pct Auto 0.4 % (0.0-0.4); Lymphocytes Absolute Auto 2.6 X10*3/uL (1.2-4.9); Mean Corpuscular HGB Conc 34.7 g/dl (31.0-36.0); Mean Corpuscular Hemoglobin 35.4 pg (27.0-33.0); Mean Corpuscular Volume 101.9 fL (80.0-98.0); NRBC Abs Auto 0.000 X10*3/uL (0.0-0.012); NRBC Pct Auto 0.0 /100WBC (0.0-0.2); Platelet Count 218 X10*3/uL (160-400); Red Blood Count 4.63 X10*6/uL (4.60-5.80); White Blood Count 11.2 X10*3/uL (4.8-10.8)
[2025-09-24 11:42] LABS: Appearance Urine Clear; Glucose Urine UA Negative (Negative); PH 8.0 (5.0-9.0); Specific Gravity - Urine 1.015 (1.005-1.025)
[2025-09-24 12:25] LABS: Alanine Aminotransferase 43 U/L (0-40); Albumin Level 4.7 g/dL (3.5-5.0); Alkaline Phosphatase 54 U/L (39-117); Anion Gap 14 (12-20); Aspartate Amino Transferase 56 U/L (5-37); Blood Urea Nitrogen 9 mg/dL (9-16); Calcium 9.6 mg/dL (8.4-10.2); Carbon Dioxide 31 mmol/L (22-29); Chloride 99 mmol/L (96-108); Estimated Glomerular Filt Rate > 60; Potassium 4.5 mmol/L (3.3-5.1); Sodium 139 mmol/L (135-145); Total Protein 7.3 g/dL (6.5-8.0)
== END 2025-09-24 09:26 | disposition home or self-care (01) ==
LOC: HO.LAB 09:25
DX: I10 Essential (primary) hypertension (principal); I48.11 Longstanding persistent atrial fibrillation; G47.33 Obstructive sleep apnea (adult) (pediatric); E66.811 Obesity, class 1; J32.9 Chronic sinusitis, unspecified; M16.0 Bilateral primary osteoarthritis of hip; G47.00 Insomnia, unspecified; Z68.33 Body mass index [BMI] 33.0-33.9, adult
CPT/HCPCS: 36415; 80053; 81003; 82306; 84443; 85025; 96127

== ENCOUNTER 2025-09-28 13:55 | Outpatient (AMB) | payer OTHER, SELFPAY | END 2025-09-28 13:55 | disposition home or self-care (01) | LOC: HO.HMGAL 13:55 | PROVIDERS: Visit Provider Registered Nurse Emergency | DX: J30.89 Other allergic rhinitis (principal) | CPT/HCPCS: 95117; 95165 ==

== ENCOUNTER 2025-10-16 08:36 | Outpatient (AMB) | payer OTHER, SELFPAY ==
--- NOTE | 2025-10-16 08:38 | A.OFFVIS_ITS ---
Vital Signs 10/16/25 08:43 Height 5 ft 7 in Weight 211 lb BMI 33.0 Intake Visit Reasons: OV-B/L Hip OA last Intake Note: Sky is a 65 year old male who presents today for a follow up of bilateral hip pain, last injection 05/13/25. Patient reports that last injections helped, he is requesting to repeat injections before he leaves for [place]. Allergies amlodipine Adverse Reaction (Unknown, Verified 09/24/25 10:06) Leg swelling Medication List - Last Reconciled 10/16/25 by Umm Diaz PA-C apixaban 5 mg PO BID carvedilol 12.5 mg PO BID hydrochlorothiazide 25 mg PO DAILY lansoprazole 15 mg PO DAILY loratadine (Allergy Relief (loratadine)) 10 mg PO DAILY psyllium husk (Metamucil) 0.8 grams PO BEDTIME tadalafil 20 mg PO DAILY zolpidem 10 mg PO BEDTIME PRN HPI Comments Details: History of Present Illness The patient is a 65 year old male presenting for follow-up for bilateral hip pain. He previously received bilateral trochanteric bursa injections on May 13, which provided significant relief after a day or two. The pain recurred approximately three to four weeks ago and is located on the outside of the hips. He denies any associated numbness, tingling down the legs, or groin pain. He has no history of diabetes. Social History - The patient reports he will be traveling to [place] at the end of the month and will return in February. [facility] Medical History Obesity Atrial fibrillation Transaminitis Chronic GERD Insomnia Obesity Essential hypertension VSD (ventricular septal defect) Hypertension Surgical History History of colonoscopy (~09/22/22) History of recent dental procedure History of rectal polypectomy History of surgery on extremity History of appendectomy Family History Father No problems noted. Mother No problems noted. Brother Heart attack Family/Other Vascular disease Social History Household Members: Spouse Housing: House Do you presently have visiting nurse or other home services: No Alcohol intake: current Alcohol intake frequency: a few times a month Patient Tobacco Use Status: Current someday Tobacco user Tobacco use type: Cigar e-Cigarette/Vaping Use: Never Used Second Hand Smoke Exposure: No service: No Current occupational status: employed Current occupation: Soon to be retired. Cognitive needs: No Hearing needs: No Vision needs: Yes (glasses) Review of Systems Narrative Review of Systems - Musculoskeletal: Reports recurrent pain on the outside of both hips. - Neurological: Denies numbness and tingling in the legs. - Genitourinary: Denies groin pain. Physical Exam Vital Signs: BMI result Body Mass Index 33.0 Const General: cooperative and no acute distress Orientation/consciousness: patient oriented x3 Resp Effort & Inspection: normal respiratory effort and able to speak in complete sentences Cardio Peripheral pulses: Peripheral pulses 2+ throughout Neuro General: patient oriented x3 Extrem Other: bilat hip normal to inspection. No pain with ROM of the hip. Pain along the greater trochanter. No pain with hip flexion or abduction.There is tenderness along the si joint, Negative SLR. NVI. Office Procedures AMB Joint Injection/Aspiration Joint Injection/Aspiration Primary Site: Right Trochanteric Bursa Secondary Site: Left Trochanteric Bursa Prep: site was prepped using aseptic technique, ethochloride spray was applied and injection warnings given Injected: 40 mg of, Decadron, with 3 mL of, 1% plain Lidocaine and 0.25% Bupi vacaine Procedure: The patient tolerated the procedure well and there was some relief with the local anesthesia Coding 17741 - Glenohumeral/Tronchanteric Bursa/Intraarticular Procedure code (CPT) selection complete Assessment & Plan Assessment & Plan (1) Trochanteric bursitis of both hips: Code(s): M70.61 - Trochanteric bursitis, right hip; M70.62 - Trochanteric bursitis, left hip Category: Medical Plan The patient experienced good relief from previous bilateral hip injections administered in May, with symptoms recurring about 3-4 weeks ago. Given the successful prior intervention and the patient's non-diabetic status, the plan is to proceed with repeat bilateral hip injections today and he will f/u prn. Consent Patient was informed and verbally consented to the use of an ambient scribe for clinic note documentation during this visit. Coding Level of Care Code Est Pt Level 3 (14865) Add On Problem Visit Only Diagnoses Trochanteric bursitis of both hips M70.61; M70.62 CPT Codes Coding - Joint 7: 28772 - Glenohumeral/Tronchanteric Bursa/Intraarticular ([id number])
[2025-10-16 08:43] VITALS: BMI 33.0
== END 2025-10-16 09:21 | disposition home or self-care (01) ==
LOC: HO.HOS 08:36
PROVIDERS: Visit Provider Physician Assistant
DX: M70.61 Trochanteric bursitis, right hip (principal); M70.62 Trochanteric bursitis, left hip
CPT/HCPCS: 20610; 99213

== ENCOUNTER → 2025-10-16 08:36 | Outpatient (BNVA) | payer OTHER, SELFPAY | PROVIDERS: Visit Provider Physician Assistant | DX: M70.61 Trochanteric bursitis, right hip (principal); M70.62 Trochanteric bursitis, left hip | CPT/HCPCS: 20610; J0665; J1100; J2003 ==

== ENCOUNTER 2025-10-21 10:36 | Outpatient (AMB) | payer OTHER, SELFPAY | END 2025-10-21 10:36 | disposition home or self-care (01) | LOC: HO.HMGAL 10:36 | PROVIDERS: Visit Provider Registered Nurse Emergency | DX: J30.89 Other allergic rhinitis (principal) | CPT/HCPCS: 95117; 95165 ==